=== PATIENT | female | born 1995 | race Caucasian/White ===

== ENCOUNTER 2022-06-12 15:17 | Emergency (ER) | payer BC, SELFPAY ==
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
[2022-06-12 15:29] VITALS: BP 142/81; PULSE 84; RESP 16; TEMP 36.2; O2SAT 99
== END 2022-06-12 15:54 | disposition home or self-care (01) ==
PROVIDERS: Emergency Provider Nurse Practitioner Family; PCP Physician Assistant
DX: K04.7 Periapical abscess without sinus (principal)
CPT/HCPCS: 99203; G0463

== ENCOUNTER 2023-11-10 14:38 | Emergency (ER) | payer BC, SELFPAY ==
[2023-11-10 14:39] VITALS: BP 142/86; PULSE 93; RESP 22; TEMP 36.6; O2SAT 98
[2023-11-10 15:35] LABS: Basophils Absolute Auto 0.04 K/mm3 (0.00-0.10); Basophils Percent Auto 0.4 % (0.0-1.0); Eosinophils Absolute Auto 0.21 K/mm3 (0.02-0.50); Hematocrit 36.1 % (35.0-49.0); Hemoglobin 12.1 g/dL (12.0-15.0); Immature Granulocyte Absolute 0.06 K/mm3 (0.00-0.00); Immature Granulocyte Percent A 0.6 % (0.0-0.0); Lymphocytes Absolute Auto 1.95 K/mm3 (1.10-4.50); Lymphocytes Percent Auto 18.4 % (18.0-42.0); Mean Corpuscular HGB Conc 33.5 g/dL (32-36); Mean Corpuscular Hemoglobin 27.1 pg (27.0-31.0); Mean Corpuscular Volume 80.9 fL (78.0-102.0); Mean Platelet Volume 12.1 fl (9.2-11.8); Monocytes Absolute Auto 0.33 K/mm3 (0.10-0.90); Monocytes Percent Auto 3.1 % (2.0-11.0); Neutrophils Absolute Auto 8.01 K/mm3 (1.70-7.20); Neutrophils Percent Auto 75.5 % (50.0-70.0); Platelet Count Result 139 K/mm3 (150-420); Red Blood Count 4.46 M/mm3 (4.20-5.40); Red Cell Distribution Width 16.7 % (11.6-14.4); White Blood Count 10.6 K/mm3 (4.8-10.8)
[2023-11-10 15:36] LABS: Appearance Urine Clear (Clear); Bilirubin Urine Negative (Negative); Blood Urine 3+ (Negative); Color Urine Yellow (Yellow); Glucose Urine UA Negative (Negative); Ketones Urine Trace (Negative); Leukocyte Esterase Ur Negative LEU/UL (Negative); Nitrate Urine Negative (Negative); Protein Urine Negative (Negative); Specific Grav Ur >= 1.030 (1.010-1.020)
--- NOTE | 2023-11-10 15:39 | PC.NURSE ---
pelvic exam per dr shine with 2 female staff members in room. tolerated well, no blood noted per dr shine
[2023-11-10 15:45] LABS: Add Urine Microscopic? YES; Amorphous Sediment Urine Few; Mucus Urine Heavy /lpf; RBC Urine 0-2 /hpf (0-2); Squamous Epithelial Cell Urine Few /hpf (Few)
[2023-11-10 15:46] LABS: Triple Phosphate Crystal Urine Present /hpf
[2023-11-10 16:05] LABS: Alanine Aminotransferase 13 U/L (14-59); Alkaline Phosphatase 53 U/L (46-116); Anion Gap 10 mmol/L (4-12); Aspartate Amino Transferase < 10 U/L (15-37); Bilirubin,Total 0.2 mg/dL (0.00-1.00); Blood Urea Nitrogen 3 mg/dL (7-18); Carbon Dioxide 21 mmol/L (21-32); Chloride 105 mmol/L (98-108); Estimated CRCL calculation 169 ml/min; Estimated Glomerular Filt Rate > 60; Glucose 87 mg/dL (70-99); Osmolality Calculated 277 mOsm/kg (285-295); Potassium 3.4 mmol/L (3.5-5.1); Sodium 136 mmol/L (136-145); Total Protein 6.5 g/dL (6.4-8.2)
--- NOTE | 2023-11-10 16:10 | ED.FEMALEGU ---
HPI - Female Genitourinary General Chief complaint: Urogenital-Female Stated complaint: vaginal bleeding Time Seen by Provider: 11/10/23 14:59 Source: patient Mode of arrival: ambulatory Limitations: no limitations History of Present Illness HPI Narrative: this is a 28-year-old female presents with episode vaginal bleeding currently there is bleeding no good heart tones and heart tone monitor there is no dysuria no flank pain no fever chills no nausea vomiting no chest pain or shortness of breath. MD elicited complaint: vaginal bleeding Pertinent past history: prior miscarriages Onset (ago): hour(s) Severity: mild Related Data Allergies Allergy/AdvReac Type Severity Reaction Status Date / Time tramadol Allergy Intermediate HIVES Verified 11/19/18 11:40 aspirin Allergy Unknown N/V, Verified 11/19/18 11:40 HIVES, THROAT SWELLING codeine Allergy Unknown Nausea and Verified 11/19/18 11:40 Vomiting ibuprofen Allergy Unknown N/V, Verified 11/19/18 11:40 HIVES, THROAT SWELLING naproxen Allergy Unknown Hives / Verified 11/19/18 11:40 Red Face oxycodone Allergy Unknown Palpitation Verified 11/19/18 11:40 s Penicillins Allergy Unknown Palpitation Verified 11/19/18 11:40 s UNKNOWN ALLERGY Allergy Mild UNKNOWN, Uncoded 11/19/18 11:41 CAN'T REMEMBER NAME OF ALLERGY Review of Systems Review of Systems: All systems reviewed & are unremarkable except as noted in HPI and below PMFSH Past Medical History Medical History Patient denies medical problems Exam Const: General: healthy appearing, no acute distress and alert Limitations: no limitations Neck: Neck: normal visual inspection, no lymphadenopathy and no meningeal signs Chest: Chest palpation & inspection: normal inspection of the chest Resp: Effort & Inspection: normal respiratory effort Auscultation: clear to auscultation bilaterally Cardio: Rate: regular rate Rhythm: regular rhythm GI: GI Palp: Yes Soft to palpation Auscultation: normal bowel sounds : General: Yes bladder normal to palpation Other: vaginal exam shows no blood in the vaginal vault cervical os is closed, currently no evidence of bleeding. Back/Spine/Pelvis: Back: no CVA tenderness Skin: General skin exam: normal color Neuro: General: patient oriented x3 and moves all extremities Course Course Emergency Course: Vaginal exam showed no evidence current bleeding with a closed cervix visualized on speculum exam, currently no bleeding labs reviewed urinalysis shows some 3+ blood otherwise urine is negative for urinary tract infection beta hCG performed and reviewed with patient and CMP within normal limits. Patient has a scheduled appointment with her Ob on Sunday advised to keep that scheduled appointment. According to patient she is 21 weeks and quantitative beta-hCG is at 11,000. Vital Signs Vital signs: Vital Signs Temperature 36.6 C 11/10/23 14:39 Pulse Rate 93 11/10/23 14:39 Respiratory Rate 22 H 11/10/23 14:39 Blood Pressure 142/86 H 11/10/23 14:39 Pulse Oximetry 98 11/10/23 14:39 Oxygen Delivery Room Air 11/10/23 14:39 Temperature 36.6 C 11/10/23 14:39 Pulse Rate 93 11/10/23 14:39 Respiratory Rate 22 H 11/10/23 14:39 Blood Pressure 142/86 H 11/10/23 14:39 Pulse Oximetry 98 11/10/23 14:39 Oxygen Delivery Room Air 11/10/23 14:39 MDM - Female Genitourinary Lab Data 11/10/23 15:22 11/10/23 15:22 Labs: Lab Results 11/10/23 Range/Units 15:22 WBC 10.6 (4.8-10.8) K/mm3 RBC 4.46 (4.20-5.40) M/mm3 Hgb 12.1 (12.0-15.0) g/dL Hct 36.1 (35.0-49.0) % MCV 80.9 (78.0-102.0) fL MCH 27.1 (27.0-31.0) pg MCHC 33.5 (32-36) g/dL RDW 16.7 H (11.6-14.4) % Plt Count 139 L (150-420) K/mm3 MPV 12.1 H (9.2-11.8) fl Immature Gran % (A
[2023-11-10 16:30] VITALS: BP 128/77; PULSE 84; RESP 20; O2SAT 98
== END 2023-11-10 16:30 | disposition home or self-care (01) ==
PROVIDERS: Emergency Provider Emergency Medicine; PCP Physician Assistant
DX: O46.92 Antepartum hemorrhage, unspecified, second trimester (principal); Z3A.21 21 weeks gestation of pregnancy
CPT/HCPCS: 36415; 80053; 81001; 84702; 85025; 99284

== ENCOUNTER 2024-01-19 21:46 | Emergency (ER) | payer BC, SELFPAY ==
[2024-01-19] VITALS (17 sets, daily range): BP systolic 123–148; BP diastolic 64–83; PULSE 82–104; RESP 12–24; TEMP 36.5–36.6; O2SAT 97–100
--- NOTE | 2024-01-19 22:13 | ED.GENADULT ---
HPI - General Adult General Chief complaint: Vaginal Bleeding Stated complaint: hemorrhage Time Seen by Provider: 01/19/24 21:48 Source: patient and family Mode of arrival: wheelchair History of Present Illness HPI narrative: this is a 28 year female that is 29 weeks that has vaginal bleeding patient stable vitals blood pressure 140/83 with rate of 80 with a heart tones 156. Patient denies any cramping there is no nausea vomiting no abdominal pain. The patient was recently released from [facility] in [place], patient signed out earlier this afternoon and was told that if any bleeding should occur that she should go to the nearest emergency department for transfer to [facility]. Patient has a high risk , has a history of 2 subchorionic hemorrhages in her past medical history. Onset (ago): hour(s) Related Data Home Medications Medication Instructions Recorded Confirmed No Home Medications 01/19/24 01/19/24 Allergies Allergy/AdvReac Type Severity Reaction Status Date / Time tramadol Allergy Intermediate HIVES Verified 01/19/24 21:57 aspirin Allergy Unknown N/V, Verified 01/19/24 21:57 HIVES, THROAT SWELLING codeine Allergy Unknown Nausea and Verified 01/19/24 21:57 Vomiting ibuprofen Allergy Unknown N/V, Verified 01/19/24 21:57 HIVES, THROAT SWELLING naproxen Allergy Unknown Hives / Verified 01/19/24 21:57 Red Face oxycodone Allergy Unknown Palpitation Verified 01/19/24 21:57 s Penicillins Allergy Unknown Palpitation Verified 01/19/24 21:57 s UNKNOWN ALLERGY Allergy Mild UNKNOWN, Uncoded 11/19/18 11:41 CAN'T REMEMBER NAME OF ALLERGY Review of Systems Review of Systems: All systems reviewed & are unremarkable except as noted in HPI and below PMFSH Past Medical History Medical History Patient denies medical problems Exam Const: General: no acute distress Nutritional Appearance: well nourished Orientation/consciousness: patient oriented x3 Limitations: no limitations Chest: Chest palpation & inspection: normal inspection of the chest Resp: Effort & Inspection: normal respiratory effort Auscultation: clear to auscultation bilaterally Cardio: Rate: regular rate Rhythm: regular rhythm GI: GI Palp: Yes Soft to palpation Auscultation: normal bowel sounds : General: Yes bladder normal to palpation Other: Vaginal exam does show additional bleeding Course Course Emergency Course: patient currently having vaginal bleeding is 29 weeks spoke with OB at [facility] in [place] that accepted patient for transfer. IV fluids started and blood work currently pending cm will be sending a transport team for this patient. Vital Signs Vital signs: Vital Signs Temperature 36.5 C 01/19/24 21:47 Pulse Rate 89 01/19/24 21:47 Respiratory Rate 18 01/19/24 21:47 Blood Pressure 148/83 H 01/19/24 21:47 Pulse Oximetry 98 01/19/24 21:47 Oxygen Delivery Room Air 01/19/24 21:47 Temperature 36.5 C 01/19/24 21:47 Pulse Rate 89 01/19/24 21:47 Respiratory Rate 18 01/19/24 21:47 Blood Pressure 148/83 H 01/19/24 21:47 Pulse Oximetry 98 01/19/24 21:47 Oxygen Delivery Room Air 01/19/24 21:47 Medical Decision Making Vital Signs Vital Signs: Vital Signs Temperature 36.5 C 01/19/24 21:47 Pulse Rate 89 01/19/24 21:47 Respiratory Rate 18 01/19/24 21:47 Blood Pressure 148/83 H 01/19/24 21:47 Pulse Oximetry 98 01/19/24 21:47 Oxygen Delivery Room Air 01/19/24 21:47 Temperature 36.5 C 01/19/24 21:47 Pulse Rate 89 01/19/24 21:47 Respiratory Rate 18 01/19/24 21:47 Blood Pressure 148/83 H 01/19/24 21:47 Pulse Oximetry 98 01/19/24 21:47 Oxygen Delivery Room Air 01/19/24 21:47 Lab Data 01/19/24 21:48 Labs: Lab Results
[2024-01-19 22:14] LABS: Basophils Absolute Auto 0.03 K/mm3 (0.00-0.10); Basophils Percent Auto 0.2 % (0.0-1.0); Eosinophils Absolute Auto 0.07 K/mm3 (0.02-0.50); Eosinophils Percent Auto 0.5 % (1.0-6.0); Hematocrit 33.2 % (35.0-49.0); Hemoglobin 10.9 g/dL (12.0-15.0); Immature Granulocyte Absolute 0.28 K/mm3 (0.00-0.00); Immature Granulocyte Percent A 1.9 % (0.0-0.0); Lymphocytes Absolute Auto 2.41 K/mm3 (1.10-4.50); Lymphocytes Percent Auto 16.2 % (18.0-42.0); Mean Corpuscular HGB Conc 32.8 g/dL (32-36); Mean Corpuscular Hemoglobin 27.8 pg (27.0-31.0); Mean Corpuscular Volume 84.7 fL (78.0-102.0); Monocytes Absolute Auto 0.67 K/mm3 (0.10-0.90); Monocytes Percent Auto 4.5 % (2.0-11.0); Neutrophils Absolute Auto 11.41 K/mm3 (1.70-7.20); Neutrophils Percent Auto 76.7 % (50.0-70.0); Platelet Count Result 169 K/mm3 (150-420); Red Blood Count 3.92 M/mm3 (4.20-5.40); Red Cell Distribution Width 16.1 % (11.6-14.4); White Blood Count 14.9 K/mm3 (4.8-10.8)
[2024-01-19 22:20] LABS: INR 0.9; Partial Thromboplastin Time 22.5 Sec (23.9-30.70); Prothrombin Time 9.8 Seconds (9.50-12.1)
[2024-01-19] MEDS: SODIUM CHLORIDE 0.9% IV 1,000 ML 999 ML IV CONT (22:56)
--- NOTE | 2024-01-19 22:56 | PC.NURSE ---
Patient on the phone arguing with Grandmother about her mother. Patient is pretty upset at this point in time. Education provided to patient about keeping stress levels down at this time. Encouraged to end call with family to lessen stress.
== END 2024-01-20 00:15 | disposition short-term general hospital (02) ==
PROVIDERS: Emergency Provider Emergency Medicine; PCP Obstetrics & Gynecology
DX: O46.93 Antepartum hemorrhage, unspecified, third trimester (principal); Z3A.29 29 weeks gestation of pregnancy
CPT/HCPCS: 36415; 84702; 85025; 85610; 85730; 96360; 99285; J7030

== ENCOUNTER 2025-03-04 18:39 | Emergency (ER) | payer BC, SELFPAY ==
--- NOTE | ~2025-03-04 | XR_ITS ---
XR chest 1V portable INDICATION:Cough and shortness of breath . REFERENCE: None FINDINGS: A single AP of the chest demonstrates normal heart size. The lungs are clear. There is no evidence of pneumothorax or pleural effusion. IMPRESSION: No acute pulmonary findings. Reviewed, dictated and finalized at location S.
[2025-03-04 18:40] VITALS: BP 142/88; PULSE 89; RESP 16; TEMP 36.6; O2SAT 100
--- OUTSIDE RECORDS SUMMARY | 2025-03-04 18:41 | XMS_ITS | Clinical Summary ---
Author Organization [facility] Address [facility] [place] [address] Care Team Providers Care Pin Sticker Name Role Phone Unavailable Primary Care Provider Unavailabl e Source Comments [facility],non-owned Affiliates and Associated Physician Practices is amultiple site organization consisting of ambulatory clinics and hospital sitesin [place], [place], [place] and [place]. This disclosure is being madepursuant to the Care Everywhere program and may not contain all information available regarding this patient. Last updated 18.[facility] [employer] Allergies Active Allergy Reactions Criticality Noted Date Comments Ibuprofen Urticaria,Palpitations Medium 07/16/2015 Naproxen Other,Palpitations,S hortness of Breath,Swelling High 07/16/2015 Oxycodone Other High 11/27/2023 Penicillins Urticaria,Palpitations Medium 07/16/2015 Tramadol Palpitations 07/16/2015 Medications * Be aware that medications may not be up to date on this document. Alwaysverify current medications with the patient. Vit-Fe Fumarate-FA ( vitamin) 28-0.8 MG tablet Take 1 (one) tablet by mouth once daily Active albuterol HFA (ProAir HFA) 108 (90 Base) MCG/ACT inhaler Inhale 2 (two) puffs by mouth every 4 hours as needed 8.5 g Active Additional Information Patient not taking.Reason: Other (hasn't used in a few years), Informant: Other, Reported on 02/27/2024 Vit-Fe Fumarate-FA (SM Vitamins) 28-0.8 MG TABS Take 1 tablet by mouth once daily 30 tablet 3 4 Active Active Problems Patient Care Coordination No te Formatting of this note migh t be different from the original. [employer] form completed. Diapers given. 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 Overview (11/27/2023): Suppression therapy at 36 weeks Tobacco user 11/27/2023 Overview (11/27/2023): encourage cessation Obesity affecting 11/27/2023 Subchorionic hematoma in second trimester 2023 Asthma, mild intermittent 11/27/2023 Immunizations Immunization Administration Dates Next Due DTP HIB, HISTORIC VACCINE 04/06/1994,01/19/1994 DTP, HISTORIC VACCINE 01/17/1999,1993,10/1993 FLU, HISTORIC VACCINE 03/14/2007 HEP A PEDS 2 DOSE 12/18/2006,01/04/2006 HEP B VACCINE, PED/ADOL 01/19/1994,1993, HIB VACCINE 1993,1993 Human Papilloma Virus Adrián valent Vaccine 12/19/2007,03/14/2007,12/18/2006 INFLUENZA VACCINE 03/01/2010,06/04/2008,04/15/20 03 INFLUENZA VACCINE, TRIV. (FL UZONE; FLULAVAL; FLUARIX; AFLURIA TRIVALENT; 6MO+), 0.5 ML (IIV3) 01/19/2011 MENINGOCOCCAL ACWY (MCV4P) VAC IM 08/04/2010, MMR VACCINE 01/17/1999,04/06/1994 POLIO OPV 01/17/1999, 4,1993,05/12 TDAP (7yrs+) 01/05/2017 TDAP, HISTORIC VACCINE 04/15/2013,05/17/2005 Family History Medical History Relation Name Comments CAD (Coronary Artery Disease) Maternal Grandfather CVA Maternal Grandfather Cancer Maternal Grandfather Hypertension Maternal Grandfather CAD (Coronary Artery Disease) Maternal Grandmother CVA Maternal Grandmother Hypertension Maternal Grandmother CAD (Coronary Artery Disease) Mother CVA Mother Cancer Mother Hypertension Mother CAD (Coronary Artery Disease) Other CVA Other Cancer Other CAD (Coronary Artery Disease) Paternal Grandfather CVA Paternal Grandfather Hypertension Paternal Grandfather CAD (Coronary Artery Disease) Paternal Grandmother CVA Paternal Grandmother Hypertension Paternal Grandmother Relation Name Status Comments Maternal Grandfather Maternal Grandmother Mother Other Paternal Grandfather Paternal Grandmother Social History Tobacco Use Types Packs/Day Years Used Date Smoking Tobacco: Every Day Cigarettes 1 17 Smokeless Tobacco: Never Tobacco Cessation:Ready to Q uit: Not Asked; Counseling Given: Not Answered Alcohol Use Standard Drinks/Week Comments Not Currently 0 (1 standard drink = 0.6 oz pur e alcohol) Overall Financial Resource Strain (CARDIA) Answe r Date Recorded How hard is it for you to pa y for the very basics like food, housing, medical care, and heating? Not hard at all 02/27/2024 [facility] - Occupational Stress Questionnaire Answer Date Recorded Do you feel stress - tense, restless, nervous, or anxious, or unable to sleep at night because your mind is troubled all the time - these days? Not at all 02/27/2024 Hunger Vital Sign Answer Date Recorded Within the past 12 months, y ou worried that your food would run out before you got the money to buy more. Never true 02/27/20 24 Within the past 12 months, t he food you bought just didn't last and you didn't have money to get more. Never true 02/27/2024 PRAPARE - Transportation Answer Date Re corded In the past 12 months, has l ack of transportation kept you from medical appointments or from getting medications? No 02/05 In the past 12 months, has l ack of transportation kept you from meetings, work, or from getting things needed for daily living? No 02/27/2024 Housing Stability Vital Sign Answer Wild e Recorded In the last 12 months, was t here a time when you were not able to pay the mortgage or rent on time? No 01/21/2024 In the last 12 months, how many places have you lived? 2 01/21/2024 In the last 12 months, was t here a time when you did not have a steady place to sleep or slept in a skilled nursing (including now)? No 01/21/2024 [place] Depression Scale Answer Date Recorded [place] Depression Scale Total 0 02/27/2024 The thought of harming myself has occurred to me . Never 02/27/2024 Housing Stability Vital Sign Answer Wild e Recorded In the last 12 months, was t here a time when you were not able to pay the mortgage or rent on time? No 02/27/2024 In the past 12 months, how m any times have you moved where you were living? 1 02/27/2024 At any time in the past 12 m [facility], were you homeless or living in a skilled nursing (including now)? No 02/27/2024 Comments No Sex and Gender Information Value Date Recorded Sex Assigned at Not on file Legal Sex Female 7:49 AM CDT Gender Identity Not on file Sexual Orientation Not on file Last Filed Vital Signs Vital Sign Reading Time Taken Comments Blood Pressure 126/87 03/12/2024 1:51 PM [employer] Pulse 85 03/12/2024 1:51 PM [employer] Temperature 36.5 C (97.7 F) 02/27/2024 11:10 AM CDT Respiratory Rate 16 02/27/2024 11:25 AM CDT Oxygen Saturation 99% 01/22/2024 9:35 AM CDT Inhaled Oxygen Concentration - - Weight 107 kg (235 lb 12.8 oz) 03/12/2024 1:51 P M [employer] Height 175.3 cm (5' 9) 02/27/2024 11:42 AM CDT Body Mass Index 34.82 02/27/2024 11:42 AM CDT Plan of Treatment Health Maintenance Due Date Last Done Comments HEPATITIS C SCREENING 02/21/2011 PNEUMOCOCCAL VACCINE (1 of 2 - PCV) 02/26/2012 PAP SMEAR 2014 DEPRESSION SCREENING 05/07/2024 COVID-19 VACCINE ( - season) 2025 INFLUENZA VACCINE (#1) 2025 1, 03/01/2010, 06/04/2008, Additional history exists DTAP/TDAP/TD VACCINES (8 - Td or Tdap) 01/05/2027 01/05/2017, 04/15/2013, 05/17/2005, Additional history exists ZOSTER VACCINE (1 of 2) 2043 HEPATITIS B VACCINE Completed 01/19/1994, 1993, 1993 HIB VACCINE Completed 04/06/1994, 01/05, 1993, Additional history exists HPV VACCINE Completed 12/19/2007, 12/2006, 12/18/2006 MENINGOCOCCAL GROUPS A/C/Y/W VACCINE Completed 08/04/2010, 12/19/2007 HIV SCREENING Completed 03/31/2024 MENINGOCOCCAL (Group B) VACCINE SHARED DECISION-MAKING Aged Out No longer eligible based on patient's age to complete this topic Insurance MEDICAID - OUT OF STATE Advance Directives * Full Code (Latest Code Status on File) Date Activated Date Inactivated Comments 01/20/2024 11:29 PM 01/22/2024 12:51 PM * Full Code Date Activated Date Inactivated Comments 01/15/2024 12:20 AM 01/19/2024 1:43 PM
--- OUTSIDE RECORDS SUMMARY | 2025-03-04 18:42 | XMS_ITS | Data Portability ---
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 Role Phone SUKH CORDOVA Primary Care Provider Assessment Encounter Date Assessment Date Assessment LastModified by Organization Details LastModified Time 02/26/2024 02/26/2024 OB worksheet [email or web address] Not available 1 09:45:42 Plan of Treatment Reminders Order Date Submit Date Provider Last Modified By Organization Details Last Modified Time Details Appointments ANY 15 2024 10:30A M Sukh Cordova PA-C Not available Not available Not available Lab urinalysi s, dipstick 2023 024 [email or web address] In-Office Order, Internal Use Only DO Not Attach Compendium DO Not Attach Compendium, Do Not Delete/merge, [id number] 03/31/2024 16:58:39 HIV 1 + 2, meaningfu l use set 2023 024 [facility], [address] [place] [address] 2, [place], [address], 04/02/2024 16:14:33 RPR (rapid plasma reagin), serum 2023 024 [facility], [address] [place] [address] 2, [place], [address], 04/02/2024 16:14:31 streptoco ccus group B DNA 2023 024 [facility], [address] [place] [address] 2, [place], [address], 04/02/2024 16:14:30 CT + NG RNA, PCR, unspecifi ed specimen 2023 024 [facility]GEN[facility], [address] [facility] 2, [place], [address], 04/02/2024 16:14:29 urinalysi s, dipstick 2023 024 [email or web address] In-Office Order, Internal Use Only DO Not Attach Compendium DO Not Attach Compendium, Do Not Delete/merge, [id number] 03/18/2024 15:30:34 urinalysi s, dipstick 2023 024 [email or web address] In-Office Order, Internal Use Only DO Not Attach Compendium DO Not Attach Compendium, Do Not Delete/merge, 02/27/2024 09:35:32 urinalysi s, dipstick 2023 024 [email or web address] In-Office Order, Internal Use Only DO Not Attach Compendium DO Not Attach Compendium, Do Not Delete/merge, [id number] 02/12/2024 12:55:44 Referral dermatolo gist referral 2024 025 [facility], [address] [place] [address], [id number], 11/27/2024 12:32:21 Procedures None recorded. Surgeries None recorded. Imaging None recorded. Medication Orders sulfameth oxazole 800 mg-trimet hoprim 160 mg tablet 2024 025 [id number], [address], [place], [id number], 11/16/2024 05:02:22 Patient TargetsNo targets recorded. 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, Encounter Date: 10/30/2024 Results Created Date Observation Date Name Description Value Unit Range Abnormal Flag Note LastModifiedBy Organization Detail LastModifiedTime 01/14/20 24 01/14/2024 Blood type and Indir ect antib vernon scree n panel - Blood ABO and Rh group panel - blood B POSITI VE Not Available Not Available 16:36:25 01/14/20 24 01/14/2024 Blood type and Indir ect antib vernon scree n panel - Blood blood group antibody screen [presence] in serum or plasma NEGATI VE Not Available Not Available 16:36:25 01/14/20 24 01/14/2024 Blood type and Indir ect antib vernon scree n panel - Blood specimen expiration date of blood 2023,2 359 Not Available Not Available 16:36:25 01/14/20 24 01/14/2024 Compr ehens jorge alberto metab olic 1999 panel - Serum or Plasm a sodium [moles/volum e] in serum or plasma 137 text: 136 - 145 mmol/L Not Available Not Available 11/13/2024 16:36:25 01/14/20 24 01/14/2024 Compr ehens jorge alberto metab olic 1999 panel - Serum or Plasm a potassium [moles/volum e] in serum or plasma 3.9 text: 3.5 - 5.1 mmol/L Not Available Not Available 11/13/2024 16:36:25 01/14/20 24 01/14/2024 Compr ehens jorge alberto metab olic 1999 panel - Serum or Plasm a chloride [moles/volum e] in serum or plasma 104 text: 98 - 107 mmol/L Not Available Not Available 11/13/2024 16:36:25 01/14/20 24 01/14/2024 Compr ehens jorge alberto metab olic 1999 panel - Serum or Plasm a carbon dioxide, total [moles/volum e] in serum or plasma 24.2 text: 21.0 - 32.0 mmol/L Not Available Not Available 11/13/2024 16:36:25 01/14/20 24 01/14/2024 Compr ehens jorge alberto metab olic 2000 panel - Serum or Plasm a glucose [mass/volume ] in serum or plasma 95 text: 70 - 99 mg/dL FASTI NG GLUCO SE 100 TO 125 MG/DL IS CONSI STENT WITH IMPAI RED FASTI NG GLUCO SE. FASTI NG GLUCO SE >125 MG/DL IS CONSI STENT WITH DIABE GABBY. RANDO M GLUCO SE >200 MG/DL WITH HYPER GLYCE GAYLE SYMPT OMS IS CONSI STENT WITH DIABE GABBY. PER ADA GUIDE LINES Not Available Not Available 11/13/2024 16:36:25 01/14/2001/14/2024 Compr ehens jorge alberto metab olic 2000 panel - Serum or Plasm a urea nitrogen [mass/volume ] in serum or plasma 4 text: 6 - 24 mg/dL low Not Available Not Available 11/13/2024 16:36:25 01/14/20 24 01/14/2024 Compr ehens jorge alberto metab olic 2000 panel - Serum or Plasm a creatinine [mass/volume ] in serum or plasma 0.65 text: 0.55 - 1.02 mg/dL Not Available Not Available 11/13/2024 16:36:25 01/14/20 24 01/14/2024 Compr ehens jorge alberto metab olic 2000 panel - Serum or Plasm a calcium [mass/volume ] in serum or plasma 8.9 text: 8.4 - 10.5 mg/dL Not Available Not Available 11/13/2024 16:36:25 01/14/20 24 01/14/2024 Compr ehens jorge alberto metab olic 2000 panel - Serum or Plasm a bilirubin.to dora [mass/volume ] in serum or plasma 0.2 text: 0.2 - 1.0 mg/dL THIS ASSAY IS NOT RECOM STACIE D FOR PATIE NTS UNDER GOING TREAT MENT WITH ELTRO MBOPA G DUE TO THE POTEN TIAL FOR FALSE LY ELEVA HALEY RESUL TS. Not Available Not Available 11/13/2024 16:36:25 01/14/20 24 01/14/2024 Compr ehens jorge alberto metab olic 2000 panel - Serum or Plasm a alkaline phosphatase [enzymatic activity/vol ume] in serum or plasma 90 U/L low: 37U/Lh igh: 98U/L Not Available Not Available 11/13/2024 16:36:25 01/14/20 24 01/14/2024 [facility] ehens jorge alberto metab olic 1999 panel - Serum or Plasm a aspartate aminotransfe rase [enzymatic activity/vol ume] in serum or plasma 7 U/L low: 15U/Lh igh: 37U/L low Not Available Not Available 11/13/2024 16:36:25 01/14/20 24 01/14/2024 Compr ehens jorge alberto metab olic 1999 panel - Serum or Plasm a alanine aminotransfe rase [enzymatic activity/vol ume] in serum or plasma 10 U/L low: 14U/Lh igh: 59U/L low Not Available Not Available 11/13/2024 16:36:25 01/14/20 24 01/14/2024 [facility] ehens jorge alberto metab olic 1999 panel - Serum or Plasm a protein [mass/volume ] in serum or plasma 6.9 text: 6.4 - 8.2 g/dL Not Available Not Available 11/13/2024 16:36:25 01/14/20 24 01/14/2024 Compr ehens jorge alberto metab olic 1999 panel - Serum or Plasm a albumin [mass/volume ] in serum or plasma 3 text: 3.4 - 5.0 g/dL low Not Available Not Available 11/13/2024 16:36:25 01/14/20 24 01/14/2024 [facility] ehens jorge alberto metab olic 1999 panel - Serum or Plasm a anion gap in serum or plasma by calculation 8.8 text: 5.0 - 15.0 mmol/L Not Available Not Available 11/13/2024 16:36:25 01/14/20 24 01/14/2024 Compr ehens jorge alberto metab olic 1999 panel - Serum or Plasm a osmolality of serum or plasma by calculated by sum of electrolytes 281 text: mOsm/k g REFER ENCE RANGE NOT ESTAB LISHE D Not Available Not Available 11/13/2024 16:36:25 01/14/20 24 01/14/2024 Compr ehens jorge alberto metab olic 1999 panel - Serum or Plasm a glomerular filtration rate [volume rate/area] in serum, plasma or blood by creatinine-b ased formula (CKD-epi 2020)/1.73 sq M >90 text: >89 mL/min /1.73 M2 Not Available Not Available 11/13/2024 16:36:25 01/14/2001/14/2024 Compr ehens jorge alberto metab olic 2000 panel - Serum or Plasm a GFR notes GFR REFERE NCES: THE ESTIM ATED GFR IS CALCU LATED USING THE 2020 CKD-E PI EQUAT ION. THE FOLLO WING CATEG ORIES FOR GRADI NG RENAL FUNCT ION ARE RECOM STACIE D BY THE [facility] T[facility] OF NEPHR OLOGY (KDIG O 2011 CLINI L[facility]X PRACT ICE GUIDE LINE) . G1,NO RMAL OR HIGH: >89 ml/mi n/1.7 3 m2 G2,PR LDLY DECRE ASED: 60-89 ml/mi n/1.7 3 m2 G3A,M ILDLY TO MODER ATELY DECRE ASED: 45-59 ml/mi n/1.7 3 m2 G3B,M ODERA TELY TO SEVER INOCENTE DECRE ASED: 30-44 ml/mi n/1.7 3 m2 G4,SE VEREL Y DECRE ASED: 15-29 ml/mi n/1.7 3 m2 G5,KI DNEY FAILU RE: <15 ml/mi n/1.7 3 m2 Not Available Not Available 11/13/2024 16:36:25 01/14/20 24 01/14/2024 Compr ehens jorge alberto metab olic 2000 panel - Serum or Plasm a interpretati on and review of laboratory results Abnorm al Not Available Not Available 16:36:25 01/14/2001/14/2024 CBC W Auto Diffe renti al panel - Blood leukocytes [#/volume] in blood by automated count 13.14 text: 4.00 - 10.80 x10'3/ uL high Not Available Not Available 11/13/2024 16:36:25 01/14/20 24 01/14/2024 CBC W Auto Diffe renti al panel - Blood erythrocytes [#/volume] in blood by automated count 4.25 text: 4.10 - 5.40 x10'6/ uL Not Available Not Available 11/13/2024 16:36:25 01/14/20 24 01/14/2024 CBC W Auto Diffe renti al panel - Blood hemoglobin [mass/volume ] in blood 11.8 text: 12.0 - 16.0 g/dL low Not Available Not Available 11/13/2024 16:36:25 01/14/20 24 01/14/2024 CBC W Auto Diffe renti al panel - Blood hematocrit [volume fraction] of blood by calculation 35.4 % low: 36%hig h: 47% low Not Available Not Available 11/13/2024 16:36:25 01/14/2001/14/2024 CBC W Auto Diffe renti al panel - Blood MCV [entitic mean volume] in red blood cells 83.3 text: 78.0 - 100.0 fL Not Available Not Available 11/13/2024 16:36:25 01/14/2001/14/2024 CBC W Auto Diffe renti al panel - Blood MCH [entitic mass] 27.8 pg low: 27pghi gh: 31pg Not Available Not Available 11/13/2024 16:36:25 01/14/2001/14/2024 CBC W Auto Diffe renti al panel - Blood MCHC [entitic mass/volume] in red blood cells 33.3 text: 33.0 - 36.0 g/dL Not Available Not Available 11/13/2024 16:36:25 01/14/2001/14/2024 CBC W Auto Diffe renti al panel - Blood RDW 15.8 % low: 11.5%h igh: 14.5% high Not Available Not Available 11/13/2024 16:36:25 01/14/2001/14/2024 CBC W Auto Diffe renti al panel - Blood platelets [#/volume] in blood 154 text: 150 - 350 x10'3/ uL Not Available Not Available 11/13/2024 16:36:25 01/14/20 24 01/14/2024 CBC W Auto Diffe renti al panel - Blood platelet [entitic mean volume] in blood 12.1 text: 7.4 - 10.4 fL high Not Available Not Available 11/13/2024 16:36:25 01/14/20 24 01/14/2024 CBC W Auto Diffe renti al panel - Blood service comment NORMAL REFERE NCE RANGE NOT ESTABL ISHED FOR THE PROPOR TIONAL LEUKOC YTE DIFFER ENTIAL . Not Available Not Available 16:36:25 01/14/20 24 01/14/2024 CBC W Auto Diffe renti al panel - Blood neutrophils/ leukocytes in blood by automated count 78.9 % Not Available Not Available 11/04 16:36:25 01/14/20 24 01/14/2024 CBC W Auto Diffe renti al panel - Blood lymphocytes/ leukocytes in blood by automated count 15.3 % Not Available Not Available 11/04 16:36:25 01/14/20 24 01/14/2024 CBC W Auto Diffe renti al panel - Blood monocytes/le ukocytes in blood by automated count 3.4 % Not Available Not Available 11/04 16:36:25 01/14/20 24 01/14/2024 CBC W Auto Diffe renti al panel - Blood eosinophils/ leukocytes in blood by automated count 1.5 % Not Available Not Available 11/04 16:36:25 01/14/20 24 01/14/2024 CBC W Auto Diffe renti al panel - Blood basophils/le ukocytes in blood by automated count 0.3 % Not Available Not Available 11/04 16:36:25 01/14/20 24 01/14/2024 CBC W Auto Diffe renti al panel - Blood immature granulocytes /leukocytes in blood by automated count 0.6 % Not Available Not Available 11/04 16:36:25 01/14/20 24 01/14/2024 CBC W Auto Diffe renti al panel - Blood nucleated erythrocytes /leukocytes [ratio] in blood 0 % Not Available Not Available 11/04 16:36:25 01/14/20 24 01/14/2024 CBC W Auto Diffe renti al panel - Blood neutrophils [#/volume] in blood 10.36 text: 1.60 - 8.30 x10'3/ uL high Not Available Not Available 11/13/2024 16:36:25 01/14/20 24 01/14/2024 CBC W Auto Diffe renti al panel - Blood lymphocytes [#/volume] in blood 2.01 text: 0.80 - 4.70 x10'3/ uL Not Available Not Available 11/13/2024 16:36:25 01/14/2001/14/2024 CBC W Auto Diffe renti al panel - Blood monocytes [#/volume] in blood 0.45 text: 0.00 - 1.50 x10'3/ uL Not Available Not Available 11/13/2024 16:36:25 01/14/2001/14/2024 CBC W Auto Diffe renti al panel - Blood eosinophils [#/volume] in blood 0.2 text: 0.00 - 0.40 x10'3/ uL Not Available Not Available 11/13/2024 16:36:25 01/14/2001/14/2024 CBC W Auto Diffe renti al panel - Blood basophils [#/volume] in blood 0.04 text: 0.00 - 0.20 x10'3/ uL Not Available Not Available 11/13/2024 16:36:25 01/14/2001/14/2024 CBC W Auto Diffe renti al panel - Blood immature granulocytes [#/volume] in blood 0.08 text: 0.00 - 0.03 x10'3/ uL high Not Available Not Available 11/13/2024 16:36:25 01/14/2001/14/2024 CBC W Auto Diffe renti al panel - Blood nucleated erythrocytes [#/volume] in blood 0 text: 0.00 - 0.01 x10'3/ uL Not Available Not Available 11/13/2024 16:36:25 01/14/2001/14/2024 CBC W Auto Diffe renti al panel - Blood interpretati on and review of laboratory results Abnorm al Not Available Not Available 16:36:25 01/14/2001/14/2024 Urina lysis compl ete panel - Urine color of urine YELLOW Not Available Not Available 11/04 16:36:24 01/14/20 24 01/14/2024 Urina lysis compl ete panel - Urine clarity of urine CLEAR Not Available Not Available 11/04 16:36:24 01/14/2001/14/2024 Urina lysis compl ete panel - Urine specific gravity of urine 1.03 low: 1high: 1.025 high EQUAL TO OR GREAT ER THAN Not Available Not Available 11/13/2024 16:36:24 01/14/20 24 01/14/2024 Urina lysis compl ete panel - Urine pH of urine 5.5 low: 5high: 8 Not Available Not Available 11/13/2024 16:36:24 01/14/2001/14/2024 Urina lysis compl ete panel - Urine leukocyte esterase [presence] in urine by test strip NEGATI VE text: negati ve Not Available Not Available 11/13/2024 16:36:24 01/14/2001/14/2024 Urina lysis compl ete panel - Urine nitrite [presence] in urine by test strip NEGATI VE text: negati ve Not Available Not Available 11/13/2024 16:36:24 01/14/20 24 01/14/2024 Urina lysis compl ete panel - Urine protein [presence] in urine by automated test strip NEGATI VE text: negati ve Not Available Not Available 11/13/2024 16:36:24 01/14/20 24 01/14/2024 Urina lysis compl ete panel - Urine glucose [presence] in urine by automated test strip NEGATI VE text: negati ve Not Available Not Available 11/13/2024 16:36:24 01/14/20 24 01/14/2024 Urina lysis compl ete panel - Urine ketones [presence] in urine by automated test strip NEGATI VE text: negati ve Not Available Not Available 11/13/2024 16:36:24 01/14/2001/14/2024 Urina lysis compl ete panel - Urine urobilinogen [units/volum e] in urine by test strip 0.2 text: <1.0 eu/dL Not Available Not Available 11/13/2024 16:36:24 01/14/20 24 01/14/2024 Urina lysis compl ete panel - Urine bilirubin.to dora [presence] in urine by automated test strip NEGATI VE text: negati ve Not Available Not Available 11/13/2024 16:36:24 01/14/20 24 01/14/2024 Urina lysis compl ete panel - Urine erythrocytes [#/volume] in urine by automated test strip 3+ text: negati ve abnormal Not Available Not Available 11/13/2024 16:36:24 01/14/20 24 01/14/2024 Urina lysis compl ete panel - Urine leukocytes [#/area] in urine sediment by microscopy high power field 0-5 text: 0 - 5 /hpf Not Available Not Available 11/13/2024 16:36:24 01/14/20 24 01/14/2024 Urina lysis compl ete panel - Urine erythrocytes [#/area] in urine sediment by microscopy high power field 20-50 text: 0 - 5 /hpf abnormal Not Available Not Available 11/13/2024 16:36:24 01/14/2001/14/2024 Urina lysis compl ete panel - Urine epithelial casts [#/area] in urine sediment by microscopy low power field OCCASI ONAL text: /lpf Not Available Not Available 11/13/2024 16:36:24 01/14/20 24 01/14/2024 Urina lysis compl ete panel - Urine bacteria [#/area] in urine sediment by microscopy high power field 2+ text: /hpf Not Available Not Available 11/13/2024 16:36:24 01/14/2001/14/2024 Urina lysis compl ete panel - Urine mucus [presence] in urine sediment by light microscopy PRESEN T Not Available Not Available 16:36:24 01/14/20 24 01/14/2024 Urina lysis compl ete panel - Urine interpretati on and review of laboratory results Abnorm al Not Available Not Available 16:36:24 01/14/20 24 01/14/2024 Drugs ident ified in Urine by Sandra Phan al cannabinoids [presence] in urine by screen method NEGATI VE text: negati ve Not Available Not Available 11/13/2024 16:36:24 01/14/20 24 01/14/2024 Drugs ident ified in Urine by Sandra Phan al phencyclidin e [presence] in urine NEGATI VE text: negati ve Not Available Not Available 11/13/2024 16:36:24 01/14/20 24 01/14/2024 Drugs ident ified in Urine by Scree n metho joseph Nomin al cocaine [presence] in urine by screen method NEGATI VE text: negati ve Not Available Not Available 11/13/2024 16:36:24 01/14/20 24 01/14/2024 Drugs ident ified in Urine by Scree n metho d Nomin al methamphetam ine [presence] in urine NEGATI VE text: negati ve Not Available Not Available 11/13/2024 16:36:24 01/14/20 24 01/14/2024 Drugs ident ified in Urine by Scree n metho d Nomin al opiates [presence] in urine NEGATI VE text: negati ve Not Available Not Available 11/13/2024 16:36:24 01/14/20 24 01/14/2024 Drugs ident ified in Urine by Scree n metho d Nomin al amphetamine [presence] in urine by screen method NEGATI VE text: negati ve Not Available Not Available 11/13/2024 16:36:24 01/14/20 24 01/14/2024 Drugs ident ified in Urine by Scree n metho joseph Nomin al benzodiazepi maureen [presence] in urine by screen method NEGATI VE text: negati ve Not Available Not Available 11/13/2024 16:36:24 01/14/20 24 01/14/2024 Drugs ident ified in Urine by Scree n metho joseph Nomin al tricyclic antidepressa nts [presence] in urine NEGATI VE text: negati ve Not Available Not Available 11/13/2024 16:36:24 01/14/20 24 01/14/2024 Drugs ident ified in Urine by Scree n metho joseph Nomin al methadone [presence] in urine NEGATI VE text: negati ve Not Available Not Available 11/13/2024 16:36:24 01/14/20 24 01/14/2024 Drugs ident ified in Urine by Scree n metho joseph Nomin al barbiturate screen present [identifier] in urine NEGATI VE text: negati ve Not Available Not Available 11/13/2024 16:36:24 09/09/01/14/2024 Drugs ident ified in Urine by Sandra ruiz Nomin nika oxycodone [presence] in urine NEGATI VE text: negati ve Not Available Not Available 11/13/2024 16:36:24 01/14/20 24 01/14/2024 Drugs ident ified in Urine by Sandra ruiz Nomin nika service comment THIS TEST METHOD OLOGY IS DESIGN ED AND OFFERE D A RAPID TURNAR OUND, QUALIT ATIVE SCREEN ING PROCED URE TO AID IN THE IMMEDI ATE MEDICA L ASSESS MENT OF PATIEN TS SUSPEC HALEY OF SUBSTA NCE ABUSE. CLINI LENNOX CONSI DERAT ION AND PROFE SSION AL JUDGM ENT MUST BE APPLI ED TO ANY DRUG OF ABUSE TEST RESUL T, BOTH POSIT JORGE ALBERTO AND NEGAT JORGE ALBERTO. CONFI RMATO RY QUANT ITATI VE RESUL TS ARE AVAIL ABLE THROU GH OUR [facility] . Not Available Not Available 11/13/2024 16:36:24 01/15/20 24 01/15/2024 SLIDE SCAN HEMAT OLOGY erythrocyte [morphology] in blood REVIEW ED Not Available Not Available 16:37:09 01/15/20 24 01/15/2024 SLIDE SCAN HEMAT OLOGY yoselin cells [presence] in blood by light microscopy MODERA TE text: (none) abnormal Not Available Not Available 11/13/2024 16:37:09 01/15/20 24 01/15/2024 SLIDE SCAN HEMAT OLOGY interpretati on and review of laboratory results Abnorm al Not Available Not Available 16:37:09 01/15/20 24 01/15/2024 PT and aPTT and Fibri nogen panel - Plate let poor plasm a by Coagu latio n assay prothrombin time (PT) 13 text: 12.1 - 14.8 sec Not Available Not Available 11/13/2024 16:37:09 01/15/20 24 01/15/2024 PT and aPTT and Fibri nogen panel - Plate let poor plasm a by Coagu latio n assay INR in platelet poor plasma by coagulation assay 1 low: 0.9hig h: 1.1 Not Available Not Available 11/13/2024 16:37:09 01/15/20 24 01/15/2024 PT and aPTT and Fibri nogen panel - Plate let poor plasm a by Coagu latio n assay APTT in platelet poor plasma by coagulation assay 24.6 text: 23.0 - 38.4 sec Not Available Not Available 11/13/2024 16:37:01/15/20 24 01/15/2024 PT and aPTT and Fibri nogen panel - Plate let poor plasm a by Coagu latio n assay fibrinogen [mass/volume ] in platelet poor plasma by coagulation assay 417 mg/dL low: 200mg/ dLhigh : 400mg/ dL high Not Available Not Available 11/13/2024 16:37:01/15/20 24 01/15/2024 PT and aPTT and Fibri nogen panel - Plate let poor plasm a by Coagu latio n assay fibrin D-dimer feu [mass/volume ] in platelet poor plasma 1.02 text: 0.27 - 0.50 ug/mL feu high Not Available Not Available 11/13/2024 16:37:01/15/20 24 01/15/2024 PT and aPTT and Fibri nogen panel - Plate let poor plasm a by Coagu latio n assay platelets [#/volume] in blood by automated count 162 text: 150 - 420 x10e9/ L Not Available Not Available 11/13/2024 16:37:01/15/20 24 01/15/2024 PT and aPTT and Fibri nogen panel - Plate let poor plasm a by Coagu latio n assay Unknown Analyte Conven tional Warfar in Antico agulan t Therap y INR Refere nce Range: 2.0-3. 0 Intens jorge alberto Warfar in Antico agulan t Therap y INR Refere nce Range: 2.5-3. 5 Hepari n Therap eutic Range for PTT: 69.0 - 110.0 second s. In the absenc e of clinic al sympto ms, a value less than or equal to 0.5 mcg/mL FEU signif icantl y decrea ses the probab ility of PE/DVT (negat jorge alberto predic tive value >95%). 1 mcg/ml FEU = 1 Fibrin ogen Equiva lent Unit (appro ximate s 0.5 mcg/mL of D-dime r). ISTH DIAGNO STIC SCORIN G SYSTEM FOR DIC ------ ------ ------ ------ ------ ------ ------ ------ ------ ------ ------ ------ ------ ------ Score 0 1 2 3 ____ _ ____ _ __ _ Platel et Count (x10^3 /uL) > 100 <100 < 50 N/A ____ _ ____ _ __ ___ ___ __ PT Prolon gation above Upper limit of normal 0-3 3-6 > 6 N/A Range (secon ds) ____ _ ____ _ __ ___ ___ __ Fibrin ogen (mg/dL ) >100 < 100 N/A N/A ____ _ ____ _ __ ___ ___ __ D-Deyanirae r (mcg/m L FEU) < 0.50 N/A 0.50-5 .0 > 5 ____ _ ____ _ __ ___ ___ __ Calcul ate Cumula tive Score: > or = 5: compat ible with overt DIC < 5: sugges tive for non-ov ert DIC N/A = Non applic able Refere nce: Br. J. Haemat ol. 145:24 -33,20 09. Not Available Not Available 16:37:01/15/2001/15/2024 PT and aPTT and Fibri nogen panel - Plate let poor plasm a by Deng rogers n assay interpretati on and review of laboratory results Abnorm al Not Available Not Available 16:37:01/15/20 24 01/15/2024 CBC W Auto Diffe renti al panel - Blood leukocytes [#/volume] in blood by automated count 13 text: 4.0 - 10.7 x10e9/ L high Not Available Not Available 11/13/2024 16:37:01/15/20 24 01/15/2024 CBC W Auto Diffe renti al panel - Blood erythrocytes [#/volume] in blood by automated count 4.21 text: 3.90 - 5.20 x10e12 /L Not Available Not Available 11/13/2024 16:37:09 01/15/20 24 01/15/2024 CBC W Auto Diffe renti al panel - Blood hemoglobin [mass/volume ] in blood 11.4 g/dL low: 11.9g/ dLhigh : 15.8g/ dL low Not Available Not Available 11/13/2024 16:37:01/15/20 24 01/15/2024 CBC W Auto Diffe renti al panel - Blood hematocrit [volume fraction] of blood by automated count 36.5 % low: 34.8%h igh: 46.1% Not Available Not Available 11/13/2024 16:37:01/15/20 24 01/15/2024 CBC W Auto Diffe renti al panel - Blood MCV [entitic mean volume] in red blood cells by automated count 86.7 fL low: 80fLhi gh: 98fL Not Available Not Available 11/13/2024 16:37:09 01/15/20 24 01/15/2024 CBC W Auto Diffe renti al panel - Blood MCH [entitic mass] by automated count 27.1 pg low: 26.7pg high: 33.6pg Not Available Not Available 11/13/2024 16:37:09 01/15/20 24 01/15/2024 CBC W Auto Diffe renti al panel - Blood MCHC [entitic mass/volume] in red blood cells by automated count 31.2 g/dL low: 31.7g/ dLhigh : 36.3g/ dL low Not Available Not Available 11/13/2024 16:37:09 01/15/20 24 01/15/2024 CBC W Auto Diffe renti al panel - Blood erythrocyte [distwidth] in red blood cells by automated count 15.9 % low: 11.3%h igh: 14.8% high Not Available Not Available 11/13/2024 16:37:09 01/15/20 24 01/15/2024 CBC W Auto Diffe renti al panel - Blood platelets [#/volume] in blood by automated count 134 text: 150 - 420 x10e9/ L low Not Available Not Available 11/13/2024 16:37:09 01/15/20 24 01/15/2024 CBC W Auto Diffe renti al panel - Blood platelet [entitic mean volume] in blood by automated count 13 fL low: 7.8fLh igh: 11.4fL high Not Available Not Available 11/13/2024 16:37:09 01/15/20 24 01/15/2024 CBC W Auto Diffe renti al panel - Blood neutrophils/ leukocytes in blood by automated count 92.2 % low: 41%hig h: 74% high Not Available Not Available 11/13/2024 16:37:09 01/15/20 24 01/15/2024 CBC W Auto Diffe renti al panel - Blood lymphocytes/ leukocytes in blood by automated count 5.6 % low: 17%hig h: 47% low Not Available Not Available 11/13/2024 16:37:09 01/15/20 24 01/15/2024 CBC W Auto Diffe renti al panel - Blood monocytes/le ukocytes in blood by automated count 1 % low: 3%high : 11% low Not Available Not Available 11/13/2024 16:37:09 01/15/20 24 01/15/2024 CBC W Auto Diffe renti al panel - Blood eosinophils/ leukocytes in blood by automated count 0.1 % low: 0%high : 7% Not Available Not Available 11/13/2024 16:37:09 01/15/20 24 01/15/2024 CBC W Auto Diffe renti al panel - Blood basophils/le ukocytes in blood by automated count 0.2 % low: 0%high : 1.6% Not Available Not Available 11/13/2024 16:37:09 01/15/20 24 01/15/2024 CBC W Auto Diffe renti al panel - Blood immature granulocytes /leukocytes in blood by automated count 0.9 % low: 0%high : 1% Not Available Not Available 11/13/2024 16:37:09 01/15/20 24 01/15/2024 CBC W Auto Diffe renti al panel - Blood neutrophils [#/volume] in blood by automated count 11.99 text: 1.60 - 7.50 x10e9/ L high Not Available Not Available 11/13/2024 16:37:09 01/15/20 24 01/15/2024 CBC W Auto Diffe renti al panel - Blood lymphocytes [#/volume] in blood by automated count 0.73 text: 1.00 - 4.40 x10e9/ L low Not Available Not Available 11/13/2024 16:37:09 01/15/20 24 01/15/2024 CBC W Auto Diffe renti al panel - Blood monocytes [#/volume] in blood by automated count 0.13 text: 0.15 - 1.00 x10e9/ L low Not Available Not Available 11/13/2024 16:37:09 01/15/20 24 01/15/2024 CBC W Auto Diffe renti al panel - Blood eosinophils [#/volume] in blood 0.01 text: 0.00 - 0.60 x10e9/ L Not Available Not Available 11/13/2024 16:37:09 01/15/20 24 01/15/2024 CBC W Auto Diffe renti al panel - Blood basophils [#/volume] in blood by automated count 0.03 text: 0.00 - 0.13 x10e9/ L Not Available Not Available 11/13/2024 16:37:09 01/15/20 24 01/15/2024 CBC W Auto Diffe jean-paul al panel - Blood interpretati on and review of laboratory results Abnorm al Not Available Not Available 16:37:09 01/15/20 24 01/15/2024 Gluco se [Mass /volu me] in Serum or Plasm a glucose [mass/volume ] in serum or plasma --1st specimen post xxx challenge 120 mg/dL low: 64mg/d Lhigh: 140mg/ dL Not Available Not Available 10/30/2024 05:18:45 01/15/20 24 01/15/2024 Gluco se [Mass /volu me] in Serum or Plasm a length of time post dose Not Available Not Available 10/06 05:18:45 01/15/20 24 01/15/2024 ABO and Rh group [Type ] in Blood ABO and Rh group [type] in blood B POS Not Available Not Available 02/2025 16:37:09 01/15/20 24 01/15/2024 Trich omona s vagin dania Ag [Pres ence] in Genit al speci men by Immun oassa y trichomonas vaginalis Ag [presence] in genital specimen by immunoassay Negati ve text: negati ve Not Available Not Available 11/13/2024 16:37:09 01/15/20 24 01/15/2024 Trich omona s vagin dania Ag [Pres ence] in Genit al speci men by Immun oassa y interpretati on and review of laboratory results Normal Not Available Not Available 11/04 16:37:09 01/15/20 24 01/15/2024 Chlam ydia trach omati s+Nei sseri a gonor rhoea e rRNA [Pres ence] in Speci men by Probe chlamydia trachomatis rrna [presence] in specimen by GERRI with probe detection Negati ve text: negati ve Not Available Not Available 11/13/2024 16:37:09 01/15/20 24 01/15/2024 Chlam ydia trach omati s+Nei sseri a gonor rhoea e rRNA [Pres ence] in Speci men by Probe neisseria gonorrhoeae rrna [presence] in specimen by GERRI with probe detection Negati ve text: negati ve Not Available Not Available 11/13/2024 16:37:09 01/15/20 24 01/15/2024 Chlam ydia trach omati s+Nei sseri a gonor rhoea e rRNA [Pres ence] in Speci men by Probe Unknown Analyte Result s based on detect ion/no detect ion of riboso mal RNA by amplif ied method . Not Available Not Available 16:37:09 01/15/20 24 01/15/2024 Chlam ydia trach omati s+Nei sseri a gonor rhoea e rRNA [Pres ence] in Speci men by Probe interpretati on and review of laboratory results Normal Not Available Not Available 11/04 16:37:09 01/15/20 24 01/18/2024 Strep tococ cus agala ctiae [Pres ence] in Speci men by Organ ism speci fic cultu re microorganis m identified in specimen by culture Negati ve for beta-h emolyt ic Strept ococcu s Group B Not Available Not Available 05:18:45 01/15/20 24 01/18/2024 Strep tococ cus agala ctiae [Pres ence] in Speci men by Organ ism speci fic cultu re interpretati on and review of laboratory results Normal Not Available Not Available 10/06 05:18:45 01/15/20 24 01/15/2024 PT and aPTT and Fibri nogen panel - Plate let poor plasm a by Coagu latio n assay prothrombin time (PT) 13.2 text: 12.1 - 14.8 sec Not Available Not Available 11/13/2024 16:37:09 01/15/20 24 01/15/2024 PT and aPTT and Fibri nogen panel - Plate let poor plasm a by Coagu latio n assay INR in platelet poor plasma by coagulation assay 1 low: 0.9hig h: 1.1 Not Available Not Available 11/13/2024 16:37:09 01/15/20 24 01/15/2024 PT and aPTT and Fibri nogen panel - Plate let poor plasm a by [employer]agu latio n assay APTT in platelet poor plasma by coagulation assay 23.7 text: 23.0 - 38.4 sec Not Available Not Available 11/13/2024 16:37:01/15/20 24 01/15/2024 PT and aPTT and Fibri nogen panel - Plate let poor plasm a by Coagu latio n assay fibrinogen [mass/volume ] in platelet poor plasma by coagulation assay 366 mg/dL low: 200mg/ dLhigh : 400mg/ dL Not Available Not Available 11/13/2024 16:37:01/15/20 24 01/15/2024 PT and aPTT and Fibri nogen panel - Plate let poor plasm a by Coagu latio n assay fibrin D-dimer feu [mass/volume ] in platelet poor plasma 1.14 text: 0.27 - 0.50 ug/mL feu high Not Available Not Available 11/13/2024 16:37:01/15/20 24 01/15/2024 PT and aPTT and Fibri nogen panel - Plate let poor plasm a by Coagu latio n assay platelets [#/volume] in blood by automated count 143 text: 150 - 420 x10e9/ L low Not Available Not Available 11/13/2024 16:37:01/15/20 24 01/15/2024 PT and aPTT and Fibri nogen panel - Plate let poor plasm a by Coagu latio n assay Unknown Analyte Conven tional Warfar in Antico agulan t Therap y INR Refere nce Range: 2.0-3. 0 Intens jorge alberto Warfar in Antico agulan t Therap y INR Refere nce Range: 2.5-3. 5 Hepari n Therap eutic Range for PTT: 69.0 - 110.0 second s. In the absenc e of clinic al sympto ms, a value less than or equal to 0.5 mcg/mL FEU signif icantl y decrea ses the probab ility of PE/DVT (negat jorge alberto predic tive value >95%). 1 mcg/ml FEU = 1 Fibrin ogen Equiva lent Unit (appro ximate s 0.5 mcg/mL of D-dime r). ISTH DIAGNO STIC SCORIN G SYSTEM FOR DIC ------ ------ ------ ------ ------ ------ ------ ------ ------ ------ ------ ------ ------ ------ Score 0 1 2 3 ____ _ ____ _ __ _ Platel et Count (x10^3 /uL) > 100 <100 < 50 N/A ____ _ ____ _ __ ___ ___ __ PT Prolon gation above Upper limit of normal 0-3 3-6 > 6 N/A Range (secon ds) ____ _ ____ _ __ ___ ___ __ Fibrin ogen (mg/dL ) >100 < 100 N/A N/A ____ _ ____ _ __ ___ ___ __ D-Dime r (mcg/m L FEU) < 0.50 N/A 0.50-5 .0 > 5 ____ _ ____ _ __ ___ ___ __ Calcul ate Cumula tive Score: > or = 5: compat ible with overt DIC < 5: sugges tive for non-ov ert DIC N/A = Non applic able Refere nce: Br. J. Haemat ol. 145:24 -33,20 09. Not Available Not Available 16:37:01/15/2001/15/2024 PT and aPTT and Fibri nogen panel - Plate let poor plasm a by Deng rogers n assay interpretati on and review of laboratory results Abnorm al Not Available Not Available 16:37:01/15/2001/15/2024 CBC W Auto Diffe renti al panel - Blood leukocytes [#/volume] in blood by automated count 13.4 text: 4.0 - 10.7 x10e9/ L high Not Available Not Available 11/13/2024 16:37:01/15/20 24 01/15/2024 CBC W Auto Diffe renti al panel - Blood erythrocytes [#/volume] in blood by automated count 4.04 text: 3.90 - 5.20 x10e12 /L Not Available Not Available 11/13/2024 16:37:01/15/20 24 01/15/2024 CBC W Auto Diffe renti al panel - Blood hemoglobin [mass/volume ] in blood 10.9 g/dL low: 11.9g/ dLhigh : 15.8g/ dL low Not Available Not Available 11/13/2024 16:37:01/15/20 24 01/15/2024 CBC W Auto Diffe renti al panel - Blood hematocrit [volume fraction] of blood by automated count 33.9 % low: 34.8%h igh: 46.1% low Not Available Not Available 11/13/2024 16:37:01/15/20 24 01/15/2024 CBC W Auto Diffe renti al panel - Blood MCV [entitic mean volume] in red blood cells by automated count 83.9 fL low: 80fLhi gh: 98fL Not Available Not Available 11/13/2024 16:37:01/15/20 24 01/15/2024 CBC W Auto Diffe renti al panel - Blood MCH [entitic mass] by automated count 27 pg low: 26.7pg high: 33.6pg Not Available Not Available 11/13/2024 16:37:09 01/15/20 24 01/15/2024 CBC W Auto Diffe renti al panel - Blood MCHC [entitic mass/volume] in red blood cells by automated count 32.2 g/dL low: 31.7g/ dLhigh : 36.3g/ dL Not Available Not Available 11/13/2024 16:37:09 01/15/20 24 01/15/2024 CBC W Auto Diffe renti al panel - Blood erythrocyte [distwidth] in red blood cells by automated count 15.6 % low: 11.3%h igh: 14.8% high Not Available Not Available 11/13/2024 16:37:09 01/15/20 24 01/15/2024 CBC W Auto Diffe renti al panel - Blood platelets [#/volume] in blood by automated count 156 text: 150 - 420 x10e9/ L Not Available Not Available 11/13/2024 16:37:09 01/15/20 24 01/15/2024 CBC W Auto Diffe renti al panel - Blood platelet [entitic mean volume] in blood by automated count 12.7 fL low: 7.8fLh igh: 11.4fL high Not Available Not Available 11/13/2024 16:37:01/15/20 24 01/15/2024 CBC W Auto Diffe renti al panel - Blood neutrophils/ leukocytes in blood by automated count 73.3 % low: 41%hig h: 74% Not Available Not Available 11/13/2024 16:37:09 01/15/20 24 01/15/2024 CBC W Auto Diffe renti al panel - Blood lymphocytes/ leukocytes in blood by automated count 20.9 % low: 17%hig h: 47% Not Available Not Available 11/13/2024 16:37:09 01/15/20 24 01/15/2024 CBC W Auto Diffe renti al panel - Blood monocytes/le ukocytes in blood by automated count 3.7 % low: 3%high : 11% Not Available Not Available 11/13/2024 16:37:09 01/15/20 24 01/15/2024 CBC W Auto Diffe renti al panel - Blood eosinophils/ leukocytes in blood by automated count 1.2 % low: 0%high : 7% Not Available Not Available 11/13/2024 16:37:09 01/15/20 24 01/15/2024 CBC W Auto Diffe renti al panel - Blood basophils/le ukocytes in blood by automated count 0.4 % low: 0%high : 1.6% Not Available Not Available 11/13/2024 16:37:09 01/15/20 24 01/15/2024 CBC W Auto Diffe renti al panel - Blood immature granulocytes /leukocytes in blood by automated count 0.5 % low: 0%high : 1% Not Available Not Available 11/13/2024 16:37:09 01/15/20 24 01/15/2024 CBC W Auto Diffe renti al panel - Blood neutrophils [#/volume] in blood by automated count 9.82 text: 1.60 - 7.50 x10e9/ L high Not Available Not Available 11/13/2024 16:37:09 01/15/20 24 01/15/2024 CBC W Auto Diffe renti al panel - Blood lymphocytes [#/volume] in blood by automated count 2.8 text: 1.00 - 4.40 x10e9/ L Not Available Not Available 11/13/2024 16:37:09 01/15/20 24 01/15/2024 CBC W Auto Diffe renti al panel - Blood monocytes [#/volume] in blood by automated count 0.5 text: 0.15 - 1.00 x10e9/ L Not Available Not Available 11/13/2024 16:37:09 01/15/20 24 01/15/2024 CBC W Auto Diffe renti al panel - Blood eosinophils [#/volume] in blood 0.16 text: 0.00 - 0.60 x10e9/ L Not Available Not Available 11/13/2024 16:37:09 01/15/20 24 01/15/2024 CBC W Auto Diffe renti al panel - Blood basophils [#/volume] in blood by automated count 0.05 text: 0.00 - 0.13 x10e9/ L Not Available Not Available 11/13/2024 16:37:01/15/20 24 01/15/2024 CBC W Auto Diffe renti al panel - Blood interpretati on and review of laboratory results Abnorm al Not Available Not Available 16:37:01/15/20 24 01/15/2024 Blood type and Indir ect antib vernon scree n panel - Blood ABO and Rh group [type] in blood B POS No histo ry; colle ct retyp e. Not Available Not Available 11/13/2024 16:37:01/15/20 24 01/15/2024 Blood type and Indir ect antib vernon scree n panel - Blood blood group antibody screen [presence] in serum or plasma NEG Not Available Not Available 11/04 16:37:01/16/20 24 01/16/2024 PT and aPTT and Fibri nogen panel - Plate let poor plasm a by Coagu latio n assay prothrombin time (PT) 13.1 text: 12.1 - 14.8 sec Not Available Not Available 11/13/2024 16:37:09 01/16/20 24 01/16/2024 PT and aPTT and Fibri nogen panel - Plate let poor plasm a by Coagu latio n assay INR in platelet poor plasma by coagulation assay 1 low: 0.9hig h: 1.1 Not Available Not Available 11/13/2024 16:37:01/16/20 24 01/16/2024 PT and aPTT and Fibri nogen panel - Plate let poor plasm a by Coagu latio n assay APTT in platelet poor plasma by coagulation assay 24.5 text: 23.0 - 38.4 sec Not Available Not Available 11/13/2024 16:37:01/16/20 24 01/16/2024 PT and aPTT and Fibri nogen panel - Plate let poor plasm a by Coagu latio n assay fibrinogen [mass/volume ] in platelet poor plasma by coagulation assay 396 mg/dL low: 200mg/ dLhigh : 400mg/ dL Not Available Not Available 11/13/2024 16:37:01/16/20 24 01/16/2024 PT and aPTT and Fibri nogen panel - Plate let poor plasm a by Coagu latio n assay fibrin D-dimer feu [mass/volume ] in platelet poor plasma 0.78 text: 0.27 - 0.50 ug/mL feu high Not Available Not Available 11/13/2024 16:37:01/16/20 24 01/16/2024 PT and aPTT and Fibri nogen panel - Plate let poor plasm a by Coagu latio n assay platelets [#/volume] in blood by automated count 158 text: 150 - 420 x10e9/ L Not Available Not Available 11/13/2024 16:37:01/16/20 24 01/16/2024 PT and aPTT and Fibri nogen panel - Plate let poor plasm a by Coagu latio n assay Unknown Analyte Conven tional Warfar in Antico agulan t Therap y INR Refere nce Range: 2.0-3. 0 Intens jorge alberto Warfar in Antico agulan t Therap y INR Refere nce Range: 2.5-3. 5 Hepari n Therap eutic Range for PTT: 69.0 - 110.0 second s. In the absenc e of clinic al sympto ms, a value less than or equal to 0.5 mcg/mL FEU signif icantl y decrea ses the probab ility of PE/DVT (negat jorge alberto predic tive value >95%). 1 mcg/ml FEU = 1 Fibrin ogen Equiva lent Unit (appro ximate s 0.5 mcg/mL of D-dime r). ISTH DIAGNO STIC SCORIN G SYSTEM FOR DIC ------ ------ ------ ------ ------ ------ ------ ------ ------ ------ ------ ------ ------ ------ Score 0 1 2 3 ____ _ ____ _ __ _ Platel et Count (x10^3 /uL) > 100 <100 < 50 N/A ____ _ ____ _ __ ___ ___ __ PT Prolon gation above Upper limit of normal 0-3 3-6 > 6 N/A Range (secon ds) ____ _ ____ _ __ ___ ___ __ Fibrin ogen (mg/dL ) >100 < 100 N/A N/A ____ _ ____ _ __ ___ ___ __ D-Dime r (mcg/m L FEU) < 0.50 N/A 0.50-5 .0 > 5 ____ _ ____ _ __ ___ ___ __ Calcul ate Cumula tive Score: > or = 5: compat ible with overt DIC < 5: sugges tive for non-ov ert DIC N/A = Non applic able Refere nce: Br. JMil Haemat ol. 145:24 -33,24 01. Not Available Not Available 16:37:09 01/16/20 24 01/16/2024 PT and aPTT and Fibri nogen panel - Plate let poor plasm a by Coagu latio n assay interpretati on and review of laboratory results Abnorm al Not Available Not Available 16:37:09 01/16/20 24 01/16/2024 CBC W Auto Diffe renti al panel - Blood leukocytes [#/volume] in blood by automated count 18.5 text: 4.0 - 10.7 x10e9/ L high Not Available Not Available 11/13/2024 16:37:09 01/16/20 24 01/16/2024 CBC W Auto Diffe renti al panel - Blood erythrocytes [#/volume] in blood by automated count 3.98 text: 3.90 - 5.20 x10e12 /L Not Available Not Available 11/13/2024 16:37:09 01/16/20 24 01/16/2024 CBC W Auto Diffe renti al panel - Blood hemoglobin [mass/volume ] in blood 10.7 g/dL low: 11.9g/ dLhigh : 15.8g/ dL low Not Available Not Available 11/13/2024 16:37:01/16/20 24 01/16/2024 CBC W Auto Diffe renti al panel - Blood hematocrit [volume fraction] of blood by automated count 34 % low: 34.8%h igh: 46.1% low Not Available Not Available 11/13/2024 16:37:01/16/20 24 01/16/2024 CBC W Auto Diffe renti al panel - Blood MCV [entitic mean volume] in red blood cells by automated count 85.4 fL low: 80fLhi gh: 98fL Not Available Not Available 11/13/2024 16:37:01/16/20 24 01/16/2024 CBC W Auto Diffe renti al panel - Blood MCH [entitic mass] by automated count 26.9 pg low: 26.7pg high: 33.6pg Not Available Not Available 11/13/2024 16:37:01/16/20 24 01/16/2024 CBC W Auto Diffe renti al panel - Blood MCHC [entitic mass/volume] in red blood cells by automated count 31.5 g/dL low: 31.7g/ dLhigh : 36.3g/ dL low Not Available Not Available 11/13/2024 16:37:01/16/20 24 01/16/2024 CBC W Auto Diffe renti al panel - Blood erythrocyte [distwidth] in red blood cells by automated count 15.8 % low: 11.3%h igh: 14.8% high Not Available Not Available 11/13/2024 16:37:09 01/16/20 24 01/16/2024 CBC W Auto Diffe renti al panel - Blood platelets [#/volume] in blood by automated count 153 text: 150 - 420 x10e9/ L Not Available Not Available 11/13/2024 16:37:09 01/16/20 24 01/16/2024 CBC W Auto Diffe renti al panel - Blood platelet [entitic mean volume] in blood by automated count 12.5 fL low: 7.8fLh igh: 11.4fL high Not Available Not Available 11/13/2024 16:37:09 01/16/20 24 01/16/2024 CBC W Auto Diffe renti al panel - Blood neutrophils/ leukocytes in blood by automated count 88.7 % low: 41%hig h: 74% high Not Available Not Available 11/13/2024 16:37:09 01/16/20 24 01/16/2024 CBC W Auto Diffe renti al panel - Blood lymphocytes/ leukocytes in blood by automated count 7.3 % low: 17%hig h: 47% low Not Available Not Available 11/13/2024 16:37:09 01/16/20 24 01/16/2024 CBC W Auto Diffe renti al panel - Blood monocytes/le ukocytes in blood by automated count 3.3 % low: 3%high : 11% Not Available Not Available 11/13/2024 16:37:09 01/16/20 24 01/16/2024 CBC W Auto Diffe renti al panel - Blood eosinophils/ leukocytes in blood by automated count 0 % low: 0%high : 7% Not Available Not Available 11/13/2024 16:37:09 01/16/20 24 01/16/2024 CBC W Auto Diffe renti al panel - Blood basophils/le ukocytes in blood by automated count 0.1 % low: 0%high : 1.6% Not Available Not Available 11/13/2024 16:37:09 01/16/20 24 01/16/2024 CBC W Auto Diffe renti al panel - Blood immature granulocytes /leukocytes in blood by automated count 0.6 % low: 0%high : 1% Not Available Not Available 11/13/2024 16:37:09 01/16/20 24 01/16/2024 CBC W Auto Diffe renti al panel - Blood neutrophils [#/volume] in blood by automated count 16.42 text: 1.60 - 7.50 x10e9/ L high Not Available Not Available 11/13/2024 16:37:09 01/16/20 24 01/16/2024 CBC W Auto Diffe renti al panel - Blood lymphocytes [#/volume] in blood by automated count 1.36 text: 1.00 - 4.40 x10e9/ L Not Available Not Available 11/13/2024 16:37:09 01/16/20 24 01/16/2024 CBC W Auto Diffe renti al panel - Blood monocytes [#/volume] in blood by automated count 0.62 text: 0.15 - 1.00 x10e9/ L Not Available Not Available 11/13/2024 16:37:09 01/16/20 24 01/16/2024 CBC W Auto Diffe renti al panel - Blood eosinophils [#/volume] in blood 0 text: 0.00 - 0.60 x10e9/ L Not Available Not Available 11/13/2024 16:37:01/16/20 24 01/16/2024 CBC W Auto Diffe renti al panel - Blood basophils [#/volume] in blood by automated count 0.02 text: 0.00 - 0.13 x10e9/ L Not Available Not Available 11/13/2024 16:37:01/16/20 24 01/16/2024 CBC W Auto Diffe renti al panel - Blood interpretati on and review of laboratory results Abnorm al Not Available Not Available 16:37:09 01/17/20 24 01/17/2024 CBC W Auto Diffe renti al panel - Blood leukocytes [#/volume] in blood by automated count 19.1 text: 4.0 - 10.7 x10e9/ L high Not Available Not Available 11/13/2024 16:37:09 01/17/20 24 01/17/2024 CBC W Auto Diffe renti al panel - Blood erythrocytes [#/volume] in blood by automated count 3.94 text: 3.90 - 5.20 x10e12 /L Not Available Not Available 11/13/2024 16:37:01/17/20 24 01/17/2024 CBC W Auto Diffe renti al panel - Blood hemoglobin [mass/volume ] in blood 10.7 g/dL low: 11.9g/ dLhigh : 15.8g/ dL low Not Available Not Available 11/13/2024 16:37:01/17/20 24 01/17/2024 CBC W Auto Diffe renti al panel - Blood hematocrit [volume fraction] of blood by automated count 33.9 % low: 34.8%h igh: 46.1% low Not Available Not Available 11/13/2024 16:37:01/17/20 24 01/17/2024 CBC W Auto Diffe renti al panel - Blood MCV [entitic mean volume] in red blood cells by automated count 86 fL low: 80fLhi gh: 98fL Not Available Not Available 11/13/2024 16:37:09 01/17/20 24 01/17/2024 CBC W Auto Diffe renti al panel - Blood MCH [entitic mass] by automated count 27.2 pg low: 26.7pg high: 33.6pg Not Available Not Available 11/13/2024 16:37:09 01/17/20 24 01/17/2024 CBC W Auto Diffe renti al panel - Blood MCHC [entitic mass/volume] in red blood cells by automated count 31.6 g/dL low: 31.7g/ dLhigh : 36.3g/ dL low Not Available Not Available 11/13/2024 16:37:01/17/20 24 01/17/2024 CBC W Auto Diffe renti al panel - Blood erythrocyte [distwidth] in red blood cells by automated count 16 % low: 11.3%h igh: 14.8% high Not Available Not Available 11/13/2024 16:37:01/17/20 24 01/17/2024 CBC W Auto Diffe renti al panel - Blood platelets [#/volume] in blood by automated count 150 text: 150 - 420 x10e9/ L Not Available Not Available 11/13/2024 16:37:09 01/17/20 24 01/17/2024 CBC W Auto Diffe renti al panel - Blood platelet [entitic mean volume] in blood by automated count 12 fL low: 7.8fLh igh: 11.4fL high Not Available Not Available 11/13/2024 16:37:09 01/17/20 24 01/17/2024 CBC W Auto Diffe renti al panel - Blood neutrophils/ leukocytes in blood by automated count 85.9 % low: 41%hig h: 74% high Not Available Not Available 11/13/2024 16:37:09 01/17/20 24 01/17/2024 CBC W Auto Diffe renti al panel - Blood lymphocytes/ leukocytes in blood by automated count 9.1 % low: 17%hig h: 47% low Not Available Not Available 11/13/2024 16:37:09 01/17/20 24 01/17/2024 CBC W Auto Diffe renti al panel - Blood monocytes/le ukocytes in blood by automated count 3.3 % low: 3%high : 11% Not Available Not Available 11/13/2024 16:37:09 01/17/20 24 01/17/2024 CBC W Auto Diffe renti al panel - Blood eosinophils/ leukocytes in blood by automated count 0 % low: 0%high : 7% Not Available Not Available 11/13/2024 16:37:09 01/17/20 24 01/17/2024 CBC W Auto Diffe renti al panel - Blood basophils/le ukocytes in blood by automated count 0.2 % low: 0%high : 1.6% Not Available Not Available 11/13/2024 16:37:09 01/17/20 24 01/17/2024 CBC W Auto Diffe renti al panel - Blood immature granulocytes /leukocytes in blood by automated count 1.5 % low: 0%high : 1% high Not Available Not Available 11/13/2024 16:37:09 01/17/20 24 01/17/2024 CBC W Auto Diffe renti al panel - Blood neutrophils [#/volume] in blood by automated count 16.42 text: 1.60 - 7.50 x10e9/ L high Not Available Not Available 11/13/2024 16:37:01/17/20 24 01/17/2024 CBC W Auto Diffe renti al panel - Blood lymphocytes [#/volume] in blood by automated count 1.73 text: 1.00 - 4.40 x10e9/ L Not Available Not Available 11/13/2024 16:37:01/17/20 24 01/17/2024 CBC W Auto Diffe renti al panel - Blood monocytes [#/volume] in blood by automated count 0.64 text: 0.15 - 1.00 x10e9/ L Not Available Not Available 11/13/2024 16:37:09 01/17/20 24 01/17/2024 CBC W Auto Diffe renti al panel - Blood eosinophils [#/volume] in blood 0 text: 0.00 - 0.60 x10e9/ L Not Available Not Available 11/13/2024 16:37:09 01/17/20 24 01/17/2024 CBC W Auto Diffe renti al panel - Blood basophils [#/volume] in blood by automated count 0.03 text: 0.00 - 0.13 x10e9/ L Not Available Not Available 11/13/2024 16:37:09 01/17/20 24 01/17/2024 CBC W Auto Diffe renti al panel - Blood interpretati on and review of laboratory results Abnorm al Not Available Not Available 16:37:09 01/17/20 24 01/17/2024 PT and aPTT and Fibri nogen panel - Plate let poor plasm a by Coagu latio n assay prothrombin time (PT) 12.8 text: 12.1 - 14.8 sec Not Available Not Available 11/13/2024 16:37:09 01/17/20 24 01/17/2024 PT and aPTT and Fibri nogen panel - Plate let poor plasm a by Coagu latio n assay INR in platelet poor plasma by coagulation assay 1 low: 0.9hig h: 1.1 Not Available Not Available 11/13/2024 16:37:09 01/17/20 24 01/17/2024 PT and aPTT and Fibri nogen panel - Plate let poor plasm a by Coagu latio n assay APTT in platelet poor plasma by coagulation assay 22.6 text: 23.0 - 38.4 sec low Not Available Not Available 11/13/2024 16:37:01/17/20 24 01/17/2024 PT and aPTT and Fibri nogen panel - Plate let poor plasm a by Coagu latio n assay fibrinogen [mass/volume ] in platelet poor plasma by coagulation assay 349 mg/dL low: 200mg/ dLhigh : 400mg/ dL Not Available Not Available 11/13/2024 16:37:01/17/20 24 01/17/2024 PT and aPTT and Fibri nogen panel - Plate let poor plasm a by Coagu latio n assay fibrin D-dimer feu [mass/volume ] in platelet poor plasma 0.91 text: 0.27 - 0.50 ug/mL feu high Not Available Not Available 11/13/2024 16:37:01/17/20 24 01/17/2024 PT and aPTT and Fibri nogen panel - Plate let poor plasm a by Coagu latio n assay platelets [#/volume] in blood by automated count 154 text: 150 - 420 x10e9/ L Not Available Not Available 11/13/2024 16:37:01/17/20 24 01/17/2024 PT and aPTT and Fibri nogen panel - Plate let poor plasm a by Coagu latio n assay Unknown Analyte Conven tional Warfar in Antico agulan t Therap y INR Refere nce Range: 2.0-3. 0 Intens jorge alberto Warfar in Antico agulan t Therap y INR Refere nce Range: 2.5-3. 5 Hepari n Therap eutic Range for PTT: 69.0 - 110.0 second s. In the absenc e of clinic al sympto ms, a value less than or equal to 0.5 mcg/mL FEU signif icantl y decrea ses the probab ility of PE/DVT (negat jorge alberto predic tive value >95%). 1 mcg/ml FEU = 1 Fibrin ogen Equiva lent Unit (appro ximate s 0.5 mcg/mL of D-dime r). ISTH DIAGNO STIC SCORIN G SYSTEM FOR DIC ------ ------ ------ ------ ------ ------ ------ ------ ------ ------ ------ ------ ------ ------ Score 0 1 2 3 ____ _ ____ _ __ _ Platel et Count (x10^3 /uL) > 100 <100 < 50 N/A ____ _ ____ _ __ ___ ___ __ PT Prolon gation above Upper limit of normal 0-3 3-6 > 6 N/A Range (secon ds) ____ _ ____ _ __ ___ ___ __ Fibrin ogen (mg/dL ) >100 < 100 N/A N/A ____ _ ____ _ __ ___ ___ __ D-Dime r (mcg/m L FEU) < 0.50 N/A 0.50-5 .0 > 5 ____ _ ____ _ __ ___ ___ __ Calcul ate Cumula tive Score: > or = 5: compat ible with overt DIC < 5: sugges tive for non-ov ert DIC N/A = Non applic able Refere nce: Br. J. Haemat ol. 145:24 -33,20 09. Not Available Not Available 16:37:01/17/20 24 01/17/2024 PT and aPTT and Fibri nogen panel - Plate let poor plasm a by Coagu latio n assay interpretati on and review of laboratory results Abnorm al Not Available Not Available 16:37:01/18/20 24 01/18/2024 PT and aPTT and Fibri nogen panel - Plate let poor plasm a by Coagu latio n assay prothrombin time (PT) 13 text: 12.1 - 14.8 sec Not Available Not Available 11/13/2024 16:37:01/18/20 24 01/18/2024 PT and aPTT and Fibri nogen panel - Plate let poor plasm a by Coagu latio n assay INR in platelet poor plasma by coagulation assay 1 low: 0.9hig h: 1.1 Not Available Not Available 11/13/2024 16:37:01/18/20 24 01/18/2024 PT and aPTT and Fibri nogen panel - Plate let poor plasm a by Coagu latio n assay APTT in platelet poor plasma by coagulation assay 23.7 text: 23.0 - 38.4 sec Not Available Not Available 11/13/2024 16:37:01/18/20 24 01/18/2024 PT and aPTT and Fibri nogen panel - Plate let poor plasm a by Coagu latio n assay fibrinogen [mass/volume ] in platelet poor plasma by coagulation assay 347 mg/dL low: 200mg/ dLhigh : 400mg/ dL Not Available Not Available 11/13/2024 16:37:01/18/20 24 01/18/2024 PT and aPTT and Fibri nogen panel - Plate let poor plasm a by Coagu latio n assay fibrin D-dimer feu [mass/volume ] in platelet poor plasma 0.9 text: 0.27 - 0.50 ug/mL feu high Not Available Not Available 11/13/2024 16:37:01/18/20 24 01/18/2024 PT and aPTT and Fibri nogen panel - Plate let poor plasm a by Coagu latio n assay platelets [#/volume] in blood by automated count 144 text: 150 - 420 x10e9/ L low Not Available Not Available 11/13/2024 16:37:10 01/18/2001/18/2024 PT and aPTT and Fibri nogen panel - Plate let poor plasm a by Coagu latio n assay Unknown Analyte Conven tional Warfar in Antico agulan t Therap y INR Refere nce Range: 2.0-3. 0 Intens jorge alberto Warfar in Antico agulan t Therap y INR Refere nce Range: 2.5-3. 5 Hepari n Therap eutic Range for PTT: 69.0 - 110.0 second s. In the absenc e of clinic al sympto ms, a value less than or equal to 0.5 mcg/mL FEU signif icantl y decrea ses the probab ility of PE/DVT (negat jorge alberto predic tive value >95%). 1 mcg/ml FEU = 1 Fibrin ogen Equiva lent Unit (appro ximate s 0.5 mcg/mL of D-dime r). ISTH DIAGNO STIC SCORIN G SYSTEM FOR DIC ------ ------ ------ ------ ------ ------ ------ ------ ------ ------ ------ ------ ------ ------ Score 0 1 2 3 ____ _ ____ _ __ _ Platel et Count (x10^3 /uL) > 100 <100 < 50 N/A ____ _ ____ _ __ ___ ___ __ PT Prolon gation above Upper limit of normal 0-3 3-6 > 6 N/A Range (secon ds) ____ _ ____ _ __ ___ ___ __ Fibrin ogen (mg/dL ) >100 < 100 N/A N/A ____ _ ____ _ __ ___ ___ __ D-Dime r (mcg/m L FEU) < 0.50 N/A 0.50-5 .0 > 5 ____ _ ____ _ __ ___ ___ __ Calcul ate Cumula tive Score: > or = 5: compat ible with overt DIC < 5: sugges tive for non-ov ert DIC N/A = Non applic able Refere nce: Br. J. Haemat ol. 145:24 -33,20 09. Not Available Not Available 16:37:10 01/18/2001/18/2024 PT and aPTT and Fibri nogen panel - Plate let poor plasm a by Zachariahgu latio n assay interpretati on and review of laboratory results Abnorm al Not Available Not Available 16:37:10 01/18/2001/18/2024 CBC panel - Blood by Autom ated count leukocytes [#/volume] in blood by automated count 14.7 text: 4.0 - 10.7 x10e9/ L high Not Available Not Available 11/13/2024 16:37:10 01/18/20 24 01/18/2024 CBC panel - Blood by Autom ated count erythrocytes [#/volume] in blood by automated count 3.79 text: 3.90 - 5.20 x10e12 /L low Not Available Not Available 11/13/2024 16:37:10 01/18/20 24 01/18/2024 CBC panel - Blood by Autom ated count hemoglobin [mass/volume ] in blood 10.2 g/dL low: 11.9g/ dLhigh : 15.8g/ dL low Not Available Not Available 11/13/2024 16:37:10 01/18/20 24 01/18/2024 CBC panel - Blood by Autom ated count hematocrit [volume fraction] of blood by automated count 32.7 % low: 34.8%h igh: 46.1% low Not Available Not Available 11/13/2024 16:37:10 01/18/20 24 01/18/2024 CBC panel - Blood by Autom ated count MCV [entitic mean volume] in red blood cells by automated count 86.3 fL low: 80fLhi gh: 98fL Not Available Not Available 11/13/2024 16:37:10 01/18/20 24 01/18/2024 CBC panel - Blood by Autom ated count MCH [entitic mass] by automated count 26.9 pg low: 26.7pg high: 33.6pg Not Available Not Available 11/13/2024 16:37:10 01/18/20 24 01/18/2024 CBC panel - Blood by Autom ated count MCHC [entitic mass/volume] in red blood cells by automated count 31.2 g/dL low: 31.7g/ dLhigh : 36.3g/ dL low Not Available Not Available 11/13/2024 16:37:10 01/18/20 24 01/18/2024 CBC panel - Blood by Autom ated count erythrocyte [distwidth] in red blood cells by automated count 16 % low: 11.3%h igh: 14.8% high Not Available Not Available 11/13/2024 16:37:10 01/18/20 24 01/18/2024 CBC panel - Blood by Autom ated count platelets [#/volume] in blood by automated count 135 text: 150 - 420 x10e9/ L low Not Available Not Available 11/13/2024 16:37:10 01/18/20 24 01/18/2024 CBC panel - Blood by Autom ated count platelet [entitic mean volume] in blood by automated count 12.5 fL low: 7.8fLh igh: 11.4fL high Not Available Not Available 11/13/2024 16:37:10 01/18/20 24 01/18/2024 CBC panel - Blood by Autom ated count interpretati on and review of laboratory results Abnorm al Not Available Not Available 16:37:10 01/18/20 24 01/18/2024 Blood type and Indir ect antib vernon scree n panel - Blood ABO and Rh group [type] in blood B POS Histo ry check ed. Not Available Not Available 11/13/2024 16:37:10 01/18/20 24 01/18/2024 Blood type and Indir ect antib vernon scree n panel - Blood blood group antibody screen [presence] in serum or plasma NEG Not Available Not Available 11/04 16:37:10 01/19/20 24 01/19/2024 PT and aPTT and Fibri nogen panel - Plate let poor plasm a by [place] latio n assay prothrombin time (PT) 12.8 text: 12.1 - 14.8 sec Not Available Not Available 11/13/2024 16:37:10 01/19/20 24 01/19/2024 PT and aPTT and Fibri nogen panel - Plate let poor plasm a by [place]agu latio n assay INR in platelet poor plasma by coagulation assay 1 low: 0.9hig h: 1.1 Not Available Not Available 11/13/2024 16:37:10 01/19/20 24 01/19/2024 PT and aPTT and Fibri nogen panel - Plate let poor plasm a by [place] latio n assay APTT in platelet poor plasma by coagulation assay 23.7 text: 23.0 - 38.4 sec Not Available Not Available 11/13/2024 16:37:10 01/19/20 24 01/19/2024 PT and aPTT and Fibri nogen panel - Plate let poor plasm a by [place]agu latio n assay fibrinogen [mass/volume ] in platelet poor plasma by coagulation assay 372 mg/dL low: 200mg/ dLhigh : 400mg/ dL Not Available Not Available 11/13/2024 16:37:01/19/2001/19/2024 PT and aPTT and Fibri nogen panel - Plate let poor plasm a by [place]agu latio n assay fibrin D-dimer feu [mass/volume ] in platelet poor plasma 0.95 text: 0.27 - 0.50 ug/mL feu high Not Available Not Available 11/13/2024 16:37:01/19/2001/19/2024 PT and aPTT and Fibri nogen panel - Plate let poor plasm a by [place]agu latio n assay platelets [#/volume] in blood by automated count 160 text: 150 - 420 x10e9/ L Not Available Not Available 11/13/2024 16:37:01/19/2001/19/2024 PT and aPTT and Fibri nogen panel - Plate let poor plasm a by [place]agu latio n assay Unknown Analyte Conven tional Warfar in Antico agulan t Therap y INR Refere nce Range: 2.0-3. 0 Intens jorge alberto Warfar in Antico agulan t Therap y INR Refere nce Range: 2.5-3. 5 Hepari n Therap eutic Range for PTT: 69.0 - 110.0 second s. In the absenc e of clinic al sympto ms, a value less than or equal to 0.5 mcg/mL FEU signif icantl y decrea ses the probab ility of PE/DVT (negat jorge alberto predic tive value >95%). 1 mcg/ml FEU = 1 Fibrin ogen Equiva lent Unit (appro ximate s 0.5 mcg/mL of D-dime r). ISTH DIAGNO STIC SCORIN G SYSTEM FOR DIC ------ ------ ------ ------ ------ ------ ------ ------ ------ ------ ------ ------ ------ ------ Score 0 1 2 3 ____ _ ____ _ __ _ Platel et Count (x10^3 /uL) > 100 <100 < 50 N/A ____ _ ____ _ __ ___ ___ __ PT Prolon gation above Upper limit of normal 0-3 3-6 > 6 N/A Range (secon ds) ____ _ ____ _ __ ___ ___ __ Fibrin ogen (mg/dL ) >100 < 100 N/A N/A ____ _ ____ _ __ ___ ___ __ D-Dime r (mcg/m L FEU) < 0.50 N/A 0.50-5 .0 > 5 ____ _ ____ _ __ ___ ___ __ Calcul ate Cumula tive Score: > or = 5: compat ible with overt DIC < 5: sugges tive for non-ov ert DIC N/A = Non applic able Refere nce: Br. Brianna Sandoval ol. 145:24 -33,20 09. Not Available Not Available 16:37:10 01/19/20 24 01/19/2024 PT and aPTT and Fibri nogen panel - Plate let poor plasm a by Deng rogers n assay interpretati on and review of laboratory results Abnorm al Not Available Not Available 16:37:10 01/19/20 24 01/19/2024 CBC panel - Blood by Autom ated count leukocytes [#/volume] in blood by automated count 15.7 text: 4.0 - 10.7 x10e9/ L high Not Available Not Available 11/13/2024 16:37:10 01/19/20 24 01/19/2024 CBC panel - Blood by Autom ated count erythrocytes [#/volume] in blood by automated count 3.81 text: 3.90 - 5.20 x10e12 /L low Not Available Not Available 11/13/2024 16:37:10 01/19/20 24 01/19/2024 CBC panel - Blood by Autom ated count hemoglobin [mass/volume ] in blood 10.5 g/dL low: 11.9g/ dLhigh : 15.8g/ dL low Not Available Not Available 11/13/2024 16:37:10 01/19/20 24 01/19/2024 CBC panel - Blood by Autom ated count hematocrit [volume fraction] of blood by automated count 32.6 % low: 34.8%h igh: 46.1% low Not Available Not Available 11/13/2024 16:37:10 01/19/20 24 01/19/2024 CBC panel - Blood by Autom ated count MCV [entitic mean volume] in red blood cells by automated count 85.6 fL low: 80fLhi gh: 98fL Not Available Not Available 11/13/2024 16:37:10 01/19/20 24 01/19/2024 CBC panel - Blood by Autom ated count MCH [entitic mass] by automated count 27.6 pg low: 26.7pg high: 33.6pg Not Available Not Available 11/13/2024 16:37:10 01/19/20 24 01/19/2024 CBC panel - Blood by Autom ated count MCHC [entitic mass/volume] in red blood cells by automated count 32.2 g/dL low: 31.7g/ dLhigh : 36.3g/ dL Not Available Not Available 11/13/2024 16:37:10 01/19/20 24 01/19/2024 CBC panel - Blood by Autom ated count erythrocyte [distwidth] in red blood cells by automated count 15.9 % low: 11.3%h igh: 14.8% high Not Available Not Available 11/13/2024 16:37:10 01/19/20 24 01/19/2024 CBC panel - Blood by Autom ated count platelets [#/volume] in blood by automated count 154 text: 150 - 420 x10e9/ L Not Available Not Available 11/13/2024 16:37:10 01/19/20 24 01/19/2024 CBC panel - Blood by Autom ated count platelet [entitic mean volume] in blood by automated count 12.5 fL low: 7.8fLh igh: 11.4fL high Not Available Not Available 11/13/2024 16:37:10 01/19/20 24 01/19/2024 CBC panel - Blood by Autom ated count interpretati on and review of laboratory results Abnorm al Not Available Not Available 16:37:10 01/20/20 24 01/20/2024 PT and aPTT and Fibri nogen panel - Plate let poor plasm a by Coagu latio n assay prothrombin time (PT) 12.3 text: 12.1 - 14.8 sec Not Available Not Available 11/13/2024 16:32:22 01/20/20 24 01/20/2024 PT and aPTT and Fibri nogen panel - Plate let poor plasm a by Coagu latio n assay INR in platelet poor plasma by coagulation assay 0.9 low: 0.9hig h: 1.1 Not Available Not Available 11/13/2024 16:32:22 01/20/20 24 01/20/2024 PT and aPTT and Fibri nogen panel - Plate let poor plasm a by [place]agu latio n assay APTT in platelet poor plasma by coagulation assay 23.4 text: 23.0 - 38.4 sec Not Available Not Available 11/13/2024 16:32:22 01/20/20 24 01/20/2024 PT and aPTT and Fibri nogen panel - Plate let poor plasm a by Coagu latio n assay fibrinogen [mass/volume ] in platelet poor plasma by coagulation assay 464 mg/dL low: 200mg/ dLhigh : 400mg/ dL high Not Available Not Available 11/13/2024 16:32:22 01/20/20 24 01/20/2024 PT and aPTT and Fibri nogen panel - Plate let poor plasm a by Coagu latio n assay fibrin D-dimer feu [mass/volume ] in platelet poor plasma 0.88 text: 0.27 - 0.50 ug/mL feu high Not Available Not Available 11/13/2024 16:32:22 01/20/20 24 01/20/2024 PT and aPTT and Fibri nogen panel - Plate let poor plasm a by Coagu latio n assay platelets [#/volume] in blood by automated count 176 text: 150 - 420 x10e9/ L Not Available Not Available 11/13/2024 16:32:22 01/20/20 24 01/20/2024 PT and aPTT and Fibri nogen panel - Plate let poor plasm a by Coagu latio n assay Unknown Analyte Conven tional Warfar in Antico agulan t Therap y INR Refere nce Range: 2.0-3. 0 Intens jorge alberto Warfar in Antico agulan t Therap y INR Refere nce Range: 2.5-3. 5 Hepari n Therap eutic Range for PTT: 69.0 - 110.0 second s. In the absenc e of clinic al sympto ms, a value less than or equal to 0.5 mcg/mL FEU signif icantl y decrea ses the probab ility of PE/DVT (negat jorge alberto predic tive value >95%). 1 mcg/ml FEU = 1 Fibrin ogen Equiva lent Unit (appro ximate s 0.5 mcg/mL of D-dime r). ISTH DIAGNO STIC SCORIN G SYSTEM FOR DIC ------ ------ ------ ------ ------ ------ ------ ------ ------ ------ ------ ------ ------ ------ Score 0 1 2 3 ____ _ ____ _ __ _ Platel et Count (x10^3 /uL) > 100 <100 < 50 N/A ____ _ ____ _ __ ___ ___ __ PT Prolon gation above Upper limit of normal 0-3 3-6 > 6 N/A Range (secon ds) ____ _ ____ _ __ ___ ___ __ Fibrin ogen (mg/dL ) >100 < 100 N/A N/A ____ _ ____ _ __ ___ ___ __ [place] [place] < 0.50 N/A 0.50-5 .0 > 5 ____ _ ____ _ __ ___ ___ __ Calcul ate Cumula tive Score: > or = 5: compat ible with overt DIC < 5: sugges tive for non-ov ert DIC N/A = Non applic able Refere nce: Br. J. Haemat ol. 145:24 -33,20 09. Not Available Not Available 16:32:22 01/20/20 24 01/20/2024 PT and aPTT and Fibri nogen panel - Plate let poor plasm a by Deng atkinson assay interpretati on and review of laboratory results Abnorm al Not Available Not Available 16:32:22 01/20/20 24 01/20/2024 CBC panel - Blood by Autom ated count leukocytes [#/volume] in blood by automated count 16.5 text: 4.0 - 10.7 x10e9/ L high Not Available Not Available 11/13/2024 16:32:22 01/20/20 24 01/20/2024 CBC panel - Blood by Autom ated count erythrocytes [#/volume] in blood by automated count 4.08 text: 3.90 - 5.20 x10e12 /L Not Available Not Available 11/13/2024 16:32:22 01/20/20 24 01/20/2024 CBC panel - Blood by Autom ated count hemoglobin [mass/volume ] in blood 11.1 g/dL low: 11.9g/ dLhigh : 15.8g/ dL low Not Available Not Available 11/13/2024 16:32:22 01/20/20 24 01/20/2024 CBC panel - Blood by Autom ated count hematocrit [volume fraction] of blood by automated count 35.1 % low: 34.8%h igh: 46.1% Not Available Not Available 11/13/2024 16:32:22 01/20/20 24 01/20/2024 CBC panel - Blood by Autom ated count MCV [entitic mean volume] in red blood cells by automated count 86 fL low: 80fLhi gh: 98fL Not Available Not Available 11/13/2024 16:32:22 01/20/20 24 01/20/2024 CBC panel - Blood by Autom ated count MCH [entitic mass] by automated count 27.2 pg low: 26.7pg high: 33.6pg Not Available Not Available 11/13/2024 16:32:22 01/20/20 24 01/20/2024 CBC panel - Blood by Autom ated count MCHC [entitic mass/volume] in red blood cells by automated count 31.6 g/dL low: 31.7g/ dLhigh : 36.3g/ dL low Not Available Not Available 11/13/2024 16:32:22 01/20/20 24 01/20/2024 CBC panel - Blood by Autom ated count erythrocyte [distwidth] in red blood cells by automated count 16.1 % low: 11.3%h igh: 14.8% high Not Available Not Available 11/13/2024 16:32:22 01/20/20 24 01/20/2024 CBC panel - Blood by Autom ated count platelets [#/volume] in blood by automated count 179 text: 150 - 420 x10e9/ L Not Available Not Available 11/13/2024 16:32:22 01/20/20 24 01/20/2024 CBC panel - Blood by Autom ated count platelet [entitic mean volume] in blood by automated count 12.1 fL low: 7.8fLh igh: 11.4fL high Not Available Not Available 11/13/2024 16:32:22 01/20/20 24 01/20/2024 CBC panel - Blood by Autom ated count interpretati on and review of laboratory results Abnorm al Not Available Not Available 16:32:22 01/21/20 24 01/21/2024 Blood type and Indir ect antib vernon scree n panel - Blood ABO and Rh group [type] in blood B POS Histo ry check ed. Not Available Not Available 11/13/2024 16:32:22 01/21/20 24 01/21/2024 Blood type and Indir ect antib vernon scree n panel - Blood blood group antibody screen [presence] in serum or plasma NEG Not Available Not Available 11/04 16:32:22 01/24/20 24 01/24/2024 urina lysis , dipst ick Leukocytes Negati ve Not Available In-Office Order Internal Use Only DO Not Attach Compendium DO Not Attach Compendium, Do Not Delete/merge, [id number] 01/24/2024 11:28:48 01/24/20 24 01/24/2024 urina lysis , dipst ick Nitrite negati ve Not Available In-Office Order Internal Use Only DO Not Attach Compendium DO Not Attach Compendium, Do Not Delete/merge, [facility] 01/24/2024 11:28:48 01/24/20 24 01/24/2024 urina lysis , dipst ick Urobilinogen .2 Not Available In-Of fice Order Internal Use Only DO Not Attach Compendium DO Not Attach Compendium, Do Not Delete/merge, [facility] 01/24/2024 11:28:48 01/24/20 24 01/24/2024 urina lysis , dipst ick Protein Negati ve Not Available In-Office Order Internal Use Only DO Not Attach Compendium DO Not Attach Compendium, Do Not Delete/merge, [facility] 01/24/2024 11:28:48 01/24/20 24 01/24/2024 urina lysis , dipst ick pH 7.0 Not Available In-Office Order Internal Use Only DO Not Attach Compendium DO Not Attach Compendium, Do Not Delete/merge, [facility] 01/24/2024 11:28:48 01/24/20 24 01/24/2024 urina lysis , dipst ick Blood Large Not Available In-Office Order Internal Use Only DO Not Attach Compendium DO Not Attach Compendium, Do Not Delete/merge, [facility] 01/24/2024 11:28:48 01/24/20 24 01/24/2024 urina lysis , dipst ick Specific Coyle 1.020 Not Available In-Off ice Order Internal Use Only DO Not Attach Compendium DO Not Attach Compendium, Do Not Delete/merge, [facility] 01/24/2024 11:28:48 01/24/20 24 01/24/2024 urina lysis , dipst ick Ketone Negati ve Not Available In-Office Order Internal Use Only DO Not Attach Compendium DO Not Attach Compendium, Do Not Delete/merge, [facility] 01/24/2024 11:28:48 01/24/20 24 01/24/2024 urina lysis , dipst ick Bilirubin Negati ve Not Available In-Office Order Internal Use Only DO Not Attach Compendium DO Not Attach Compendium, Do Not Delete/merge, [facility] 01/24/2024 11:28:48 01/24/20 24 01/24/2024 urina lysis , dipst ick Glucose Negati ve Not Available In-Office Order Internal Use Only DO Not Attach Compendium DO Not Attach Compendium, Do Not Delete/merge, 01/24/2024 11:28:48 01/24/20 24 01/24/2024 urina lysis , dipst ick Appearance Clear Not Available In-Offi ce Order Internal Use Only DO Not Attach Compendium DO Not Attach Compendium, Do Not Delete/merge, 01/24/2024 11:28:48 01/24/20 24 01/24/2024 urina lysis , dipst ick Color Dark Yellow Not Available In-Office Order Internal Use Only DO Not Attach Compendium DO Not Attach Compendium, Do Not Delete/merge, 01/24/2024 11:28:48 02/12/20 24 02/12/2024 urina lysis , dipst ick Leukocytes Small Not Available In-Offi ce Order Internal Use Only DO Not Attach Compendium DO Not Attach Compendium, Do Not Delete/merge, 02/12/2024 11:43:39 02/12/20 24 02/12/2024 urina lysis , dipst ick Nitrite negati ve Not Available In-Office Order Internal Use Only DO Not Attach Compendium DO Not Attach Compendium, Do Not Delete/merge, 02/12/2024 11:43:39 02/12/20 24 02/12/2024 urina lysis , dipst ick Urobilinogen .2 Not Available In-Of fice Order Internal Use Only DO Not Attach Compendium DO Not Attach Compendium, Do Not Delete/merge, 02/12/2024 11:43:39 02/12/20 24 02/12/2024 urina lysis , dipst ick Protein Trace Not Available In-Office Order Internal Use Only DO Not Attach Compendium DO Not Attach Compendium, Do Not Delete/merge, 02/12/2024 11:43:39 02/12/20 24 02/12/2024 urina lysis , dipst ick pH 6.0 Not Available In-Office Order Internal Use Only DO Not Attach Compendium DO Not Attach Compendium, Do Not Delete/merge, 02/12/2024 11:43:39 02/12/2002/12/2024 urina lysis , dipst ick Blood Modera te Not Available In-Office Order Internal Use Only DO Not Attach Compendium DO Not Attach Compendium, Do Not Delete/merge, [facility] 02/12/2024 11:43:39 02/12/2002/12/2024 urina lysis , dipst ick Specific Coyle 1.030 Not Available In-Off ice Order Internal Use Only DO Not Attach Compendium DO Not Attach Compendium, Do Not Delete/merge, [facility] 02/12/2024 11:43:39 02/12/2002/12/2024 urina lysis , dipst ick Ketone Negati ve Not Available In-Office Order Internal Use Only DO Not Attach Compendium DO Not Attach Compendium, Do Not Delete/merge, [facility] 02/12/2024 11:43:39 02/12/2002/12/2024 urina lysis , dipst ick Bilirubin Negati ve Not Available In-Office Order Internal Use Only DO Not Attach Compendium DO Not Attach Compendium, Do Not Delete/merge, [facility] 02/12/2024 11:43:39 02/12/2002/12/2024 urina lysis , dipst ick Glucose Negati ve Not Available In-Office Order Internal Use Only DO Not Attach Compendium DO Not Attach Compendium, Do Not Delete/merge, [facility] 02/12/2024 11:43:39 02/12/2002/12/2024 urina lysis , dipst ick Appearance Cloudy Not Available In-Offi ce Order Internal Use Only DO Not Attach Compendium DO Not Attach Compendium, Do Not Delete/merge, [facility] 02/12/2024 11:43:39 02/12/20 24 02/12/2024 urina lysis , dipst ick Color Yellow Not Available In-Office Order Internal Use Only DO Not Attach Compendium DO Not Attach Compendium, Do Not Delete/merge, [facility] 02/12/2024 11:43:39 02/26/20 24 02/26/2024 urina lysis , dipst ick Leukocytes Negati ve Not Available In-Office Order Internal Use Only DO Not Attach Compendium DO Not Attach Compendium, Do Not Delete/merge, 02/26/2024 14:38:40 02/26/2002/26/2024 urina lysis , dipst ick Nitrite negati ve Not Available In-Office Order Internal Use Only DO Not Attach Compendium DO Not Attach Compendium, Do Not Delete/merge, 02/26/2024 14:38:40 02/26/2002/26/2024 urina lysis , dipst ick Urobilinogen 2 Not Available In-Of fice Order Internal Use Only DO Not Attach Compendium DO Not Attach Compendium, Do Not Delete/merge, 02/26/2024 14:38:40 02/26/2002/26/2024 urina lysis , dipst ick Protein 30 Not Available In-Office Order Internal Use Only DO Not Attach Compendium DO Not Attach Compendium, Do Not Delete/merge, 02/26/2024 14:38:40 02/26/2002/26/2024 urina lysis , dipst ick pH 7.5 Not Available In-Office Order Internal Use Only DO Not Attach Compendium DO Not Attach Compendium, Do Not Delete/merge, 02/26/2024 14:38:40 02/26/2002/26/2024 urina lysis , dipst ick Blood Large Not Available In-Office Order Internal Use Only DO Not Attach Compendium DO Not Attach Compendium, Do Not Delete/merge, 02/26/2024 14:38:40 02/26/2002/26/2024 urina lysis , dipst ick Specific Coyle 1.025 Not Available In-Off ice Order Internal Use Only DO Not Attach Compendium DO Not Attach Compendium, Do Not Delete/merge, 02/26/2024 14:38:40 02/26/2002/26/2024 urina lysis , dipst ick Ketone Negati ve Not Available In-Office Order Internal Use Only DO Not Attach Compendium DO Not Attach Compendium, Do Not Delete/merge, 02/26/2024 14:38:40 02/26/20 24 02/26/2024 urina lysis , dipst ick Bilirubin Negati ve Not Available In-Office Order Internal Use Only DO Not Attach Compendium DO Not Attach Compendium, Do Not Delete/merge, [id number] 02/26/2024 14:38:40 02/26/20 24 02/26/2024 urina lysis , dipst ick Glucose Negati ve Not Available In-Office Order Internal Use Only DO Not Attach Compendium DO Not Attach Compendium, Do Not Delete/merge, [id number] 02/26/2024 14:38:40 02/26/20 24 02/26/2024 urina lysis , dipst ick Appearance Cloudy Not Available In-Offi ce Order Internal Use Only DO Not Attach Compendium DO Not Attach Compendium, Do Not Delete/merge, [id number] 02/26/2024 14:38:40 02/26/20 24 02/26/2024 urina lysis , dipst ick Color Yellow Not Available In-Office Order Internal Use Only DO Not Attach Compendium DO Not Attach Compendium, Do Not Delete/merge, [id number] 02/26/2024 14:38:40 02/27/20 24 02/27/2024 Urina lysis compl ete W Refle x Cultu re panel - Urine service comment Cultur e not indica haley Not Available Not Available 05:18:01 02/27/20 24 02/27/2024 Urina lysis compl ete W Refle x Cultu re panel - Urine erythrocytes [#/area] in urine sediment by automated count 0-2 text: 0 - 5 # /hpf Not Available Not Available 10/30/2024 05:18:01 02/27/20 24 02/27/2024 Urina lysis compl ete W Refle x Cultu re panel - Urine leukocytes [#/area] in urine sediment by automated count 0-5 text: 0 - 5 # /hpf Not Available Not Available 10/30/2024 05:18:01 02/27/20 24 02/27/2024 Urina lysis compl ete W Refle x Cultu re panel - Urine bacteria [presence] in urine by automated None Seen text: none seen Not Available Not Available 10/30/2024 05:18:01 02/27/2002/27/2024 Urina lysis compl ete W Refle x Cultu re panel - Urine epithelial cells.squamo us [presence] in urine by automated 0-2 text: 0 - 5 /hpf Not Available Not Available 10/30/2024 05:18:01 02/27/20 24 02/27/2024 Urina lysis compl ete W Refle x Cultu re panel - Urine Unknown Analyte Not Available Not Available 10/06 05:18:01 02/27/2002/27/2024 Urina lysis panel - Urine by Autom ated color of urine by auto Yellow text: straw, yellow Not Available Not Available 10/30/2024 05:18:01 02/27/2002/27/2024 Urina lysis panel - Urine by Autom ated clarity in urine by refractometr y automated Clear text: clear Not Available Not Available 10/30/2024 05:18:01 02/27/2002/27/2024 Urina lysis panel - Urine by Autom ated glucose [presence] in urine by test strip Negati ve text: negati ve Not Available Not Available 10/30/2024 05:18:01 02/27/2002/27/2024 Urina lysis panel - Urine by Autom ated bilirubin.to dora [presence] in urine by test strip Negati ve text: negati ve Not Available Not Available 10/30/2024 05:18:01 02/27/2002/27/2024 Urina lysis panel - Urine by Autom ated ketones [presence] in urine by automated test strip Negati ve text: negati ve Not Available Not Available 10/30/2024 05:18:01 02/27/2002/27/2024 Urina lysis panel - Urine by Autom ated specific gravity of urine by test strip 1.005 low: 1.005h igh: 1.03 Not Available Not Available 10/30/2024 05:18:01 02/27/2002/27/2024 Urina lysis panel - Urine by Autom ated hemoglobin [presence] in urine by test strip 2+ text: negati ve abnormal Not Available Not Available 10/30/2024 05:18:01 02/27/2002/27/2024 Urina lysis panel - Urine by Autom ated pH of urine by test strip 6 pH low: 5pHhig h: 8pH Not Available Not Available 10/30/2024 05:18:01 02/27/2002/27/2024 Urina lysis panel - Urine by Autom ated protein [presence] in urine by test strip Negati ve text: negati ve Not Available Not Available 10/30/2024 05:18:01 02/27/2002/27/2024 Urina lysis panel - Urine by Autom ated urobilinogen [mass/volume ] in urine by automated test strip Negati ve text: negati ve mg/dL Not Available Not Available 10/30/2024 05:18:01 02/27/2002/27/2024 Urina lysis panel - Urine by Autom ated nitrite [presence] in urine by test strip Negati ve text: negati ve Not Available Not Available 10/30/2024 05:18:01 02/27/2002/27/2024 Urina lysis panel - Urine by Autom ated leukocyte esterase [presence] in urine by test strip Negati ve text: negati ve Not Available Not Available 10/30/2024 05:18:01 02/27/2002/27/2024 Urina lysis panel - Urine by Autom ated microscopic method - urine Urine micros copy to follow Not Available Not Available 05:18:01 02/27/2002/27/2024 Urina lysis panel - Urine by Autom ated service comment Cultur e not indica haley Not Available Not Available 05:18:01 02/27/2002/27/2024 Urina lysis panel - Urine by Autom ated Unknown Analyte Not Available Not Available 10/06 05:18:01 02/27/2002/27/2024 Urina lysis panel - Urine by Autom ated interpretati on and review of laboratory results Abnorm al Not Available Not Available 05:18:01 03/12/20 24 03/12/2024 Urina lysis dipst ick panel - Urine by Autom ated test strip color of urine Janett text: straw, yellow , dark yellow , light yellow abnormal Not Available Not Available 11/13/2024 16:44:35 03/12/20 24 03/12/2024 Urina lysis dipst ick panel - Urine by Autom ated test strip clarity of urine Clear text: clear Not Available Not Available 11/13/2024 16:44:35 03/12/20 24 03/12/2024 Urina lysis dipst ick panel - Urine by Autom ated test strip pH of urine by test strip 6 pH low: 5pHhig h: 8pH Not Available Not Available 11/13/2024 16:44:35 03/12/20 24 03/12/2024 Urina lysis dipst ick panel - Urine by Autom ated test strip protein [presence] in urine by test strip Negati ve text: negati ve Not Available Not Available 11/13/2024 16:44:35 03/12/20 24 03/12/2024 Urina lysis dipst ick panel - Urine by Autom ated test strip hemoglobin [presence] in urine by test strip 3+ text: negati ve abnormal Not Available Not Available 11/13/2024 16:44:35 03/12/20 24 03/12/2024 Urina lysis dipst ick panel - Urine by Autom ated test strip leukocyte esterase [presence] in urine by test strip Negati ve text: negati ve Not Available Not Available 11/13/2024 16:44:35 03/12/20 24 03/12/2024 Urina lysis dipst ick panel - Urine by Autom ated test strip nitrite [presence] in urine by test strip Negati ve text: negati ve Not Available Not Available 11/13/2024 16:44:35 03/12/20 24 03/12/2024 Urina lysis dipst ick panel - Urine by Autom ated test strip glucose [presence] in urine by test strip Negati ve text: negati ve Not Available Not Available 11/13/2024 16:44:35 03/12/20 24 03/12/2024 Urina lysis dipst ick panel - Urine by Autom ated test strip ketones [presence] in urine by test strip Negati ve text: negati ve Not Available Not Available 11/13/2024 16:44:35 03/12/20 24 03/12/2024 Urina lysis dipst ick panel - Urine by Autom ated test strip bilirubin.to dora [presence] in urine by test strip Negati ve text: negati ve Not Available Not Available 11/13/2024 16:44:35 03/12/20 24 03/12/2024 Urina lysis dipst ick panel - Urine by Autom ated test strip urobilinogen [units/volum e] in urine by test strip 0.2 eu/dL low: 0.1eu/ dLhigh : 1eu/dL Not Available Not Available 11/13/2024 16:44:35 03/12/20 24 03/12/2024 Urina lysis dipst ick panel - Urine by Autom ated test strip interpretati on and review of laboratory results Abnorm al Not Available Not Available 16:44:35 03/12/20 24 03/12/2024 Urina lysis dipst ick panel - Urine by Autom ated test strip color of urine Janett text: straw, yellow , dark yellow , light yellow abnormal Not Available Not Available 10/30/2024 05:18:03 03/12/20 24 03/12/2024 Urina lysis dipst ick panel - Urine by Autom ated test strip clarity of urine Clear text: clear Not Available Not Available 10/30/2024 05:18:03 03/12/20 24 03/12/2024 Urina lysis dipst ick panel - Urine by Autom ated test strip urinalysis dipstick panel - urine by automated test strip 1.02 low: 1.005h igh: 1.03 Not Available Not Available 10/30/2024 05:18:03 03/12/20 24 03/12/2024 Urina lysis dipst ick panel - Urine by Autom ated test strip pH of urine by test strip 6 pH low: 5pHhig h: 8pH Not Available Not Available 10/30/2024 05:18:03 03/12/2003/12/2024 Urina lysis dipst ick panel - Urine by Autom ated test strip protein [presence] in urine by test strip Negati ve text: negati ve Not Available Not Available 10/30/2024 05:18:03 03/12/20 24 03/12/2024 Urina lysis dipst ick panel - Urine by Autom ated test strip hemoglobin [presence] in urine by test strip 3+ text: negati ve abnormal Not Available Not Available 10/30/2024 05:18:03 03/12/20 24 03/12/2024 Urina lysis dipst ick panel - Urine by Autom ated test strip leukocyte esterase [presence] in urine by test strip Negati ve text: negati ve Not Available Not Available 10/30/2024 05:18:03 03/12/20 24 03/12/2024 Urina lysis dipst ick panel - Urine by Autom ated test strip nitrite [presence] in urine by test strip Negati ve text: negati ve Not Available Not Available 10/30/2024 05:18:03 03/12/20 24 03/12/2024 Urina lysis dipst ick panel - Urine by Autom ated test strip glucose [presence] in urine by test strip Negati ve text: negati ve Not Available Not Available 10/30/2024 05:18:03 03/12/20 24 03/12/2024 Urina lysis dipst ick panel - Urine by Autom ated test strip ketones [presence] in urine by test strip Negati ve text: negati ve Not Available Not Available 10/30/2024 05:18:03 03/12/20 24 03/12/2024 Urina lysis dipst ick panel - Urine by Autom ated test strip bilirubin.to dora [presence] in urine by test strip Negati ve text: negati ve Not Available Not Available 10/30/2024 05:18:03 03/12/20 24 03/12/2024 Urina lysis dipst ick panel - Urine by Autom ated test strip urobilinogen [units/volum e] in urine by test strip 0.2 eu/dL low: 0.1eu/ dLhigh : 1eu/dL Not Available Not Available 10/30/2024 05:18:03 03/12/20 24 03/12/2024 Urina lysis dipst ick panel - Urine by Autom ated test strip interpretati on and review of laboratory results Abnorm al Not Available Not Available 05:18:03 03/18/20 24 03/18/2024 urina lysis , dipst ick Leukocytes Small Not Available In-Offi ce Order Internal Use Only DO Not Attach Compendium DO Not Attach Compendium, Do Not Delete/merge, 03/18/2024 14:52:30 03/18/20 24 03/18/2024 urina lysis , dipst ick Nitrite negati ve Not Available In-Office Order Internal Use Only DO Not Attach Compendium DO Not Attach Compendium, Do Not Delete/merge, 03/18/2024 14:52:30 03/18/20 24 03/18/2024 urina lysis , dipst ick Urobilinogen 1 Not Available In-Of fice Order Internal Use Only DO Not Attach Compendium DO Not Attach Compendium, Do Not Delete/merge, 03/18/2024 14:52:30 03/18/20 24 03/18/2024 urina lysis , dipst ick Protein Negati ve Not Available In-Office Order Internal Use Only DO Not Attach Compendium DO Not Attach Compendium, Do Not Delete/merge, 03/18/2024 14:52:30 03/18/20 24 03/18/2024 urina lysis , dipst ick pH 7.0 Not Available In-Office Order Internal Use Only DO Not Attach Compendium DO Not Attach Compendium, Do Not Delete/merge, 03/18/2024 14:52:30 03/18/20 24 03/18/2024 urina lysis , dipst ick Blood Hemoly zed: Trace Not Available In-Office Order Internal Use Only DO Not Attach Compendium DO Not Attach Compendium, Do Not Delete/merge, 03/18/2024 14:52:30 03/18/20 24 03/18/2024 urina lysis , dipst ick Specific Coyle 1.020 Not Available In-Off ice Order Internal Use Only DO Not Attach Compendium DO Not Attach Compendium, Do Not Delete/merge, 03/18/2024 14:52:30 03/18/20 24 03/18/2024 urina lysis , dipst ick Ketone Negati ve Not Available In-Office Order Internal Use Only DO Not Attach Compendium DO Not Attach Compendium, Do Not Delete/merge, 2024 14:52:30 03/18/20 24 03/18/2024 urina lysis , dipst ick Bilirubin Negati ve Not Available In-Office Order Internal Use Only DO Not Attach Compendium DO Not Attach Compendium, Do Not Delete/merge, [id number] 03/18/2024 14:52:30 03/18/20 24 03/18/2024 urina lysis , dipst ick Glucose Negati ve Not Available In-Office Order Internal Use Only DO Not Attach Compendium DO Not Attach Compendium, Do Not Delete/merge, [id number] 03/18/2024 14:52:30 03/31/20 24 04/02/2024 CHLAM YDIA/ GC AMPLI FICAT ION chlamydia trachomatis, GERRI NEGATI VE negati ve Not Available [facility] ([facility]) [address], [place], [address], 04/02/2024 16:14:29 03/31/20 24 04/02/2024 CHLAM YDIA/ GC AMPLI FICAT ION neisseria gonorrhoeae, GERRI NEGATI VE negati ve Not Available [facility] ([facility]) [address], [place], [address], 04/02/2024 16:14:29 03/31/20 24 04/02/2024 STREP GP B GERRI strep gp B GERRI NEGATI VE negati ve Cente rs for Disea se Contr ol and Preve ntion (CDC) and [facility]uh can Congr ess of Obste trici ans and Gynec ologi sts (ACOG ) guide lines for preve ntion of perin atal group B strep tococ lennox (GBS) disea se speci fy co-co llect ion of a vagin al and recta l swab speci men to maxim ize sensi tivit y of GBS detec tion. Per the CDC and ACOG, swabb ing both the lower vagin a and rectu m subst antia lly incre ases the yield of detec tion jadyn red with sampl ing the vagin a alone . Penic illin G, ampic illin , or cefaz dorothy are indic ated for intra partu m proph ylaxi s of perin atal GBS colon izati on. Refle x susce ptibi lity testi ng shoul d be perfo rmed prior to use of clind amyci n only on GBS isola gabby from penic illin -ximena rgic women who are consi dered a high risk for anaph ylaxi s. Treat ment with vanco mycin witho ut addit ional testi ng is warra nted if resis tance to clind amyci n is noted . Not Available [facility] ([facility]) [address], [place], [address], 04/02/2024 16:14:30 03/31/20 24 04/01/2024 RPR, RFX QN RPR/C ONFIR M TP RPR NON REACTI VE nonrea ctive Not Available [facility] ([facility]) [address], [place], [address], 04/02/2024 16:14:31 03/31/20 24 04/01/2024 HIV AB/P2 4 AG WITH REFLE X HIV Ab/P24 Ag screen NON REACTI VE nonrea ctive HIV-1 /HIV- 2 antib odies and HIV-1 p24 antig en were NOT detec haley. There is no labor atory evide nce of HIV infec tion. HIV Negat jorge alberto Not Available [facility] ([facility]) [address], [place], [address], 04/02/2024 16:14:33 03/31/20 24 03/31/2024 urina lysis , dipst ick Leukocytes Small Not Available In-Offi ce Order Internal Use Only DO Not Attach Compendium DO Not Attach Compendium, Do Not Delete/merge, [id number] 03/31/2024 16:42:02 03/31/20 24 03/31/2024 urina lysis , dipst ick Nitrite negati ve Not Available In-Office Order Internal Use Only DO Not Attach Compendium DO Not Attach Compendium, Do Not Delete/merge, [id number] 03/31/2024 16:42:02 03/31/20 24 03/31/2024 urina lysis , dipst ick Urobilinogen .2 Not Available In-Of fice Order Internal Use Only DO Not Attach Compendium DO Not Attach Compendium, Do Not Delete/merge, [facility] 03/31/2024 16:42:02 03/31/20 24 03/31/2024 urina lysis , dipst ick Protein Negati ve Not Available In-Office Order Internal Use Only DO Not Attach Compendium DO Not Attach Compendium, Do Not Delete/merge, [facility] 03/31/2024 16:42:02 03/31/20 24 03/31/2024 urina lysis , dipst ick pH 7.0 Not Available In-Office Order Internal Use Only DO Not Attach Compendium DO Not Attach Compendium, Do Not Delete/merge, [facility] 03/31/2024 16:42:02 03/31/20 24 03/31/2024 urina lysis , dipst ick Blood Negati ve Not Available In-Office Order Internal Use Only DO Not Attach Compendium DO Not Attach Compendium, Do Not Delete/merge, [facility] 03/31/2024 16:42:02 03/31/20 24 03/31/2024 urina lysis , dipst ick Specific Coyle 1.020 Not Available In-Off ice Order Internal Use Only DO Not Attach Compendium DO Not Attach Compendium, Do Not Delete/merge, [facility] 03/31/2024 16:42:02 03/31/20 24 03/31/2024 urina lysis , dipst ick Ketone Trace Not Available In-Office Order Internal Use Only DO Not Attach Compendium DO Not Attach Compendium, Do Not Delete/merge, [facility] 03/31/2024 16:42:02 03/31/20 24 03/31/2024 urina lysis , dipst ick Bilirubin Negati ve Not Available In-Office Order Internal Use Only DO Not Attach Compendium DO Not Attach Compendium, Do Not Delete/merge, [facility] 03/31/2024 16:42:02 03/31/20 24 03/31/2024 urina lysis , dipst ick Glucose Negati ve Not Available In-Office Order Internal Use Only DO Not Attach Compendium DO Not Attach Compendium, Do Not Delete/merge, [id number] 03/31/2024 16:42:02 04/07/20 24 04/11/2024 Blood type and Indir ect antib vernon scree n panel - Blood blood product units requested [#] 2 Not Available Not Available 11/04 16:34:58 04/07/20 24 04/11/2024 Blood type and Indir ect antib vernon scree n panel - Blood ABO and Rh group panel - blood B POSITI VE Not Available Not Available 16:34:58 04/07/20 24 04/11/2024 Blood type and Indir ect antib vernon scree n panel - Blood blood group antibody screen [presence] in serum or plasma NEGATI VE Not Available Not Available 16:34:58 04/07/20 24 04/11/2024 Blood type and Indir ect antib vernon scree n panel - Blood specimen expiration date of blood 2023,2 359 Not Available Not Available 16:34:58 04/07/20 24 04/11/2024 Blood type and Indir ect antib vernon scree n panel - Blood blood product unit id [#] [id number] 1 Not Available Not Available 16:34:58 04/07/20 24 04/11/2024 Blood type and Indir ect antib vernon scree n panel - Blood blood product type PC LEUKOP OOR Not Available Not Available 16:34:58 04/07/20 24 04/11/2024 Blood type and Indir ect antib vernon scree n panel - Blood unit division 0 Not Available Not Available 02/2025 16:34:58 04/07/20 24 04/11/2024 Blood type and Indir ect antib vernon scree n panel - Blood blood bank comment UNIT RELEAS ED Not Available Not Available 16:34:58 04/07/20 24 04/11/2024 Blood type and Indir ect antib vernon scree n panel - Blood transfusion status qualitative OK TO TRANSF USE Not Available Not Available 16:34:58 12/02/20 24 04/11/2024 Blood type and Indir ect antib vernon scree n panel - Blood major crossmatch [interpretat ion] COMPAT IBLE Not Available Not Available 16:34:58 04/07/20 24 04/11/2024 Blood type and Indir ect antib vernon scree n panel - Blood blood product unit id [#] [id number] Not Available Not Available 16:34:58 04/07/20 24 04/11/2024 Blood type and Indir ect antib vernon scree n panel - Blood blood product type PC LEUKO PHERE BAG2 Not Available Not Available 16:34:58 04/07/20 24 04/11/2024 Blood type and Indir ect antib vernon scree n panel - Blood unit division 0 Not Available Not Available 02/2025 16:34:58 04/07/20 24 04/11/2024 Blood type and Indir ect antib vernon scree n panel - Blood blood bank comment UNIT RELEAS ED Not Available Not Available 16:34:58 04/07/20 24 04/11/2024 Blood type and Indir ect antib vernon scree n panel - Blood transfusion status qualitative OK TO TRANSF USE Not Available Not Available 16:34:58 04/07/20 24 04/11/2024 Blood type and Indir ect antib vernon scree n panel - Blood major crossmatch [interpretat ion] COMPAT IBLE Not Available Not Available 16:34:58 04/07/20 24 04/07/2024 CBC W Auto Diffe renti al panel - Blood leukocytes [#/volume] in blood by automated count 13.79 text: 4.00 - 10.80 x10'3/ uL high Not Available Not Available 11/13/2024 16:34:58 04/07/20 24 04/07/2024 CBC W Auto Diffe renti al panel - Blood erythrocytes [#/volume] in blood by automated count 4.12 text: 4.10 - 5.40 x10'6/ uL Not Available Not Available 11/13/2024 16:34:58 04/07/20 24 04/07/2024 CBC W Auto Diffe renti al panel - Blood hemoglobin [mass/volume ] in blood 10.3 text: 12.0 - 16.0 g/dL low Not Available Not Available 11/13/2024 16:34:58 04/07/20 24 04/07/2024 CBC W Auto Diffe renti al panel - Blood hematocrit [volume fraction] of blood by calculation 33 % low: 36%hig h: 47% low Not Available Not Available 11/13/2024 16:34:58 04/07/20 24 04/07/2024 CBC W Auto Diffe renti al panel - Blood MCV [entitic mean volume] in red blood cells 80.1 text: 78.0 - 100.0 fL Not Available Not Available 11/13/2024 16:34:58 04/07/20 24 04/07/2024 CBC W Auto Diffe renti al panel - Blood MCH [entitic mass] 25 pg low: 27pghi gh: 31pg low Not Available Not Available 11/13/2024 16:34:58 04/07/20 24 04/07/2024 CBC W Auto Diffe renti al panel - Blood MCHC [entitic mass/volume] in red blood cells 31.2 text: 33.0 - 36.0 g/dL low Not Available Not Available 11/13/2024 16:34:58 04/07/20 24 04/07/2024 CBC W Auto Diffe renti al panel - Blood RDW 15.5 % low: 11.5%h igh: 14.5% high Not Available Not Available 11/13/2024 16:34:58 04/07/20 24 04/07/2024 CBC W Auto Diffe renti al panel - Blood platelets [#/volume] in blood 206 text: 150 - 350 x10'3/ uL Not Available Not Available 11/13/2024 16:34:58 04/07/20 24 04/07/2024 CBC W Auto Diffe renti al panel - Blood platelet [entitic mean volume] in blood 11.8 text: 7.4 - 10.4 fL high Not Available Not Available 11/13/2024 16:34:58 04/07/20 24 04/07/2024 CBC W Auto Diffe renti al panel - Blood service comment NORMAL REFERE NCE RANGE NOT ESTABL ISHED FOR THE PROPOR TIONAL LEUKOC YTE DIFFER ENTIAL . Not Available Not Available 16:34:58 04/07/20 24 04/07/2024 CBC W Auto Diffe renti al panel - Blood neutrophils/ leukocytes in blood by automated count 78.9 % Not Available Not Available 11/04 16:34:58 04/07/20 24 04/07/2024 CBC W Auto Diffe renti al panel - Blood lymphocytes/ leukocytes in blood by automated count 15.2 % Not Available Not Available 11/04 16:34:58 04/07/20 24 04/07/2024 CBC W Auto Diffe renti al panel - Blood monocytes/le ukocytes in blood by automated count 3.8 % Not Available Not Available 11/04 16:34:58 04/07/20 24 04/07/2024 CBC W Auto Diffe renti al panel - Blood eosinophils/ leukocytes in blood by automated count 0.9 % Not Available Not Available 11/04 16:34:58 04/07/20 24 04/07/2024 CBC W Auto Diffe renti al panel - Blood basophils/le ukocytes in blood by automated count 0.3 % Not Available Not Available 11/04 16:34:58 04/07/20 24 04/07/2024 CBC W Auto Diffe renti al panel - Blood immature granulocytes /leukocytes in blood by automated count 0.9 % Not Available Not Available 11/04 16:34:58 04/07/20 24 04/07/2024 CBC W Auto Diffe renti al panel - Blood nucleated erythrocytes /leukocytes [ratio] in blood 0 % Not Available Not Available 11/04 16:34:58 04/07/20 24 04/07/2024 CBC W Auto Diffe renti al panel - Blood neutrophils [#/volume] in blood 10.88 text: 1.60 - 8.30 x10'3/ uL high Not Available Not Available 11/13/2024 16:34:58 04/07/20 24 04/07/2024 CBC W Auto Diffe renti al panel - Blood lymphocytes [#/volume] in blood 2.1 text: 0.80 - 4.70 x10'3/ uL Not Available Not Available 11/13/2024 16:34:58 04/07/20 24 04/07/2024 CBC W Auto Diffe renti al panel - Blood monocytes [#/volume] in blood 0.52 text: 0.00 - 1.50 x10'3/ uL Not Available Not Available 11/13/2024 16:34:58 04/07/20 24 04/07/2024 CBC W Auto Diffe renti al panel - Blood eosinophils [#/volume] in blood 0.13 text: 0.00 - 0.40 x10'3/ uL Not Available Not Available 11/13/2024 16:34:58 04/07/20 24 04/07/2024 CBC W Auto Diffe renti al panel - Blood basophils [#/volume] in blood 0.04 text: 0.00 - 0.20 x10'3/ uL Not Available Not Available 11/13/2024 16:34:58 04/07/20 24 04/07/2024 CBC W Auto Diffe renti al panel - Blood immature granulocytes [#/volume] in blood 0.12 text: 0.00 - 0.03 x10'3/ uL high Not Available Not Available 11/13/2024 16:34:58 04/07/20 24 04/07/2024 CBC W Auto Diffe renti al panel - Blood nucleated erythrocytes [#/volume] in blood 0 text: 0.00 - 0.01 x10'3/ uL Not Available Not Available 11/13/2024 16:34:58 04/07/20 24 04/07/2024 CBC W Auto Diffe renti al panel - Blood interpretati on and review of laboratory results Abnorm al Not Available Not Available 16:34:58 04/07/20 24 04/07/2024 Drugs ident ified in Urine by Sandra maher cannabinoids [presence] in urine by screen method NEGATI VE text: negati ve Not Available Not Available 11/13/2024 16:34:58 04/07/20 24 04/07/2024 Drugs ident ified in Urine by Sandra maher phencyclidin e [presence] in urine NEGATI VE text: negati ve Not Available Not Available 11/13/2024 16:34:58 04/07/20 24 04/07/2024 Drugs ident ified in Urine by Sandra maher cocaine [presence] in urine by screen method NEGATI VE text: negati ve Not Available Not Available 11/13/2024 16:34:58 04/07/20 24 04/07/2024 Drugs ident ified in Urine by Sandra maher methamphetam ine [presence] in urine NEGATI VE text: negati ve Not Available Not Available 11/13/2024 16:34:58 04/07/20 24 04/07/2024 Drugs ident ified in Urine by Sandra maher opiates [presence] in urine NEGATI VE text: negati ve Not Available Not Available 11/13/2024 16:34:58 04/07/20 24 04/07/2024 Drugs ident ified in Urine by Sandra maher amphetamine [presence] in urine by screen method NEGATI VE text: negati ve Not Available Not Available 11/13/2024 16:34:58 04/07/20 24 04/07/2024 Drugs ident ified in Urine by Sandra maher benzodiazepi maureen [presence] in urine by screen method POSITI VE text: negati ve abnormal Not Available Not Available 11/13/2024 16:34:58 04/07/20 24 04/07/2024 Drugs ident ified in Urine by Sandra maher tricyclic antidepressa nts [presence] in urine NEGATI VE text: negati ve Not Available Not Available 11/13/2024 16:34:58 04/07/20 24 04/07/2024 Drugs ident ified in Urine by Sandra maher methadone [presence] in urine NEGATI VE text: negati ve Not Available Not Available 11/13/2024 16:34:58 04/07/20 24 04/07/2024 Drugs ident ified in Urine by Sandra maher barbiturate screen present [identifier] in urine NEGATI VE text: negati ve Not Available Not Available 11/13/2024 16:34:58 04/07/20 24 04/07/2024 Drugs ident ified in Urine by Sandra maher oxycodone [presence] in urine NEGATI VE text: negati ve Not Available Not Available 11/13/2024 16:34:58 04/07/20 24 04/07/2024 Drugs ident ified in Urine by Sandra maher service comment THIS TEST METHOD OLOGY IS DESIGN ED AND OFFERE D A RAPID TURNAR OUND, QUALIT ATIVE SCREEN ING PROCED URE TO AID IN THE IMMEDI ATE MEDICA L ASSESS MENT OF PATIEN TS SUSPEC HALEY OF SUBSTA NCE ABUSE. CLINI L[facility]X CONSI DERAT ION AND PROFE TREVAON AL JUDGM ENT MUST BE APPLI ED TO ANY DRUG OF ABUSE TEST RESUL T, BOTH POSIT JORGE ALBERTO AND NEGAT JORGE ALBERTO. CONFI RMATO RY QUANT ITATI VE RESUL TS ARE AVAIL ABLE THROU GH [facility] . Not Available Not Available 11/13/2024 16:34:58 04/07/20 24 04/07/2024 Drugs ident ified in Urine by Sandra maher interpretati on and review of laboratory results Abnorm al Not Available Not Available 16:34:58 04/07/20 24 04/07/2024 Urina lysis compl ete panel - Urine color of urine YELLOW Not Available Not Available 11/04 16:34:58 04/07/20 24 04/07/2024 Urina lysis compl ete panel - Urine clarity of urine CLEAR Not Available Not Available 11/04 16:34:58 04/07/20 24 04/07/2024 Urina lysis compl ete panel - Urine specific gravity of urine 1.03 low: 1high: 1.025 high EQUAL TO OR GREAT ER THAN Not Available Not Available 11/13/2024 16:34:58 04/07/20 24 04/07/2024 Urina lysis compl ete panel - Urine pH of urine 5.5 low: 5high: 8 Not Available Not Available 11/13/2024 16:34:58 04/07/20 24 04/07/2024 Urina lysis compl ete panel - Urine leukocyte esterase [presence] in urine by test strip NEGATI VE text: negati ve Not Available Not Available 11/13/2024 16:34:58 04/07/20 24 04/07/2024 Urina lysis compl ete panel - Urine nitrite [presence] in urine by test strip NEGATI VE text: negati ve Not Available Not Available 11/13/2024 16:34:58 04/07/20 24 04/07/2024 Urina lysis compl ete panel - Urine protein [presence] in urine by automated test strip TRACE text: negati ve abnormal Not Available Not Available 11/13/2024 16:34:58 04/07/20 24 04/07/2024 Urina lysis compl ete panel - Urine glucose [presence] in urine by automated test strip NEGATI VE text: negati ve Not Available Not Available 11/13/2024 16:34:58 04/07/20 24 04/07/2024 Urina lysis compl ete panel - Urine ketones [presence] in urine by automated test strip NEGATI VE text: negati ve Not Available Not Available 11/13/2024 16:34:58 04/07/20 24 04/07/2024 Urina lysis compl ete panel - Urine urobilinogen [units/volum e] in urine by test strip 1 text: <1.0 eu/dL high Not Available Not Available 11/13/2024 16:34:58 04/07/20 24 04/07/2024 Urina lysis compl ete panel - Urine bilirubin.to dora [presence] in urine by automated test strip NEGATI VE text: negati ve Not Available Not Available 11/13/2024 16:34:58 04/07/20 24 04/07/2024 Urina lysis compl ete panel - Urine erythrocytes [#/volume] in urine by automated test strip NEGATI VE text: negati ve Not Available Not Available 11/13/2024 16:34:58 04/07/20 24 04/07/2024 Urina lysis compl ete panel - Urine leukocytes [#/area] in urine sediment by microscopy high power field 0-5 text: 0 - 5 /hpf Not Available Not Available 11/13/2024 16:34:58 04/07/20 24 04/07/2024 Urina lysis compl ete panel - Urine erythrocytes [#/area] in urine sediment by microscopy high power field 0-5 text: 0 - 5 /hpf Not Available Not Available 11/13/2024 16:34:58 04/07/20 24 04/07/2024 Urina lysis compl ete panel - Urine epithelial casts [#/area] in urine sediment by microscopy low power field FEW text: /lpf Not Available Not Available 11/13/2024 16:34:58 04/07/20 24 04/07/2024 Urina lysis compl ete panel - Urine bacteria [#/area] in urine sediment by microscopy high power field 2+ text: /hpf Not Available Not Available 11/13/2024 16:34:58 04/07/20 24 04/07/2024 Urina lysis compl ete panel - Urine mucus [presence] in urine sediment by light microscopy PRESEN T Not Available Not Available 16:34:58 04/07/20 24 04/07/2024 Urina lysis compl ete panel - Urine interpretati on and review of laboratory results Abnorm al Not Available Not Available 16:34:58 04/07/20 24 04/09/2024 Patho logy study pathology study [facility] [address] [place] [address] Teleph one: , extens ion [id number] Pathol ogy Report Surgic al Pathol ogy Report Name: LEILANI Estrada KRISHNA Karla en #: [id number] Age: [id number] (Age: 29) Locati on: [facility] F Sex: F Proced ure Date: Hospit al #: [id number] Date Receiv ed: Date Report ed: Provid er: BRADLEY Atkinson MD Source : [facility] Histor y: 37 weeks 0-day gestat ion, G8, P3. Vagina l delive ry of female and pink, 5 pounds 12 ounces , Apgars 8/9. Subcho rionic hemato ma, possib le limite d prenat al care. Gross Descri ption: Receiv ed in formal in, labele d with a patien t label and not furthe r design ated, is a 17.5 x 15.5 cm placen ta that ranges from 1.5-3. 5 cm in thickn ess. The attach ed membra maureen are gliste manjeet to dusky, semitr ansluc ent to thicke julia, lee to red-br own, and appear partia lly overla id by friabl e, dusky red-br own soft tissue . The membra maureen insert in circum margin ate fashio n over approx imatel y 60% of the periph emily. Maximu m extrac horial is measur es 2.5 cm. The membra ne site of ruptur e is less than 10 cm. A 22.5 cm tortuo us, trivas cular umbili lennox cord insert s in furcat e fashio n 1.7 cm from the neares t placen dora margin , displa ys diffus e lee-ye llow discol oratio n, and averag es 0.7 cm in diamet er. The placen dora disc weighs 400 g. The surfac e is gliste manjeet, lee-bl ue, and appear s fairly well-v ascula rized. Diffus e mild to modera te subcho rionic fibrin deposi tion is identi fied. The matern al surfac e is compos ed of intact , spongy lee-re d cotyle dons. Sectio manjeet reveal s a 1.4 cm lamina haley yellow -red intrap arench ymal lesion . Separa tely receiv ed are friabl e, soft, dusky, red-br own to hemorr hagic tissue fragme nts that aggreg ate 8.5 x 7.5 x 3.0 cm. Sectio ns are submit haley as follow s: 1 membra maureen 2 umbili lennox cord 34 parenc hyma 5 repres entati ve separa tely receiv ed tissue . Gross examin ation (when applic able) was perfor med at [facility], [address] [id number]. This case was interp reted and signed out at [facility], [address] , [place] [address]. FINAL DIAGNO SIS: Placen ta, extrac tion: 400 gram, third trimes ter, placen ta with a normal trivas cular umbili lennox cord, modera te subcho rionic fibrin deposi tion, and focal infarc t. Elec tronic ally Signed Out MARITZA PRIDE MD Not Available Not Available 16:34:58 04/08/20 24 04/12/2024 Refer ral lab test panel test name: DRUG ABUSE PANEL Not Available Not Available 16:34:59 04/08/20 24 04/12/2024 Refer ral lab test panel specimen type SODIUM FLOURI DE Not Available Not Available 16:34:59 04/08/20 24 04/12/2024 Refer ral lab test panel referral lab test results Flexit est 1 Flexi test 1 Scree n Marij uana negat jorge alberto Amphe tamin e Scree n, Serum negat jorge alberto Nataliia turat es negat jorge alberto Benzo diaze pines negat jorge alberto Cocai ne Metab olite s negat jorge alberto Opiat es negat jorge alberto PCP (Phen cycli dine) negat jorge alberto Metha done negat jorge alberto Confi rmati on Comme nt SEE NOTE The submi tted serum speci men was teste d at the immun oassa y scree n cutof fs liste d below and, if POSIT JORGE ALBERTO, were confi rmed by Chrom atogr aphy/ Mass Spect romet ry at the liste d confi rmato ry test cutof fs. Cutof fs units are ng/mL . Drug Class / Initi al Test Confi rmato ry Drug Level Test Level Amphe tamin es 100 Amphe tamin e 50 Metha mphet amine 50 MDMA (Ecs tacy ) 50 MDA 50 Nataliia turat es 100 Amoba rbita l 100 Butab arbit al 100 Butal bital 100 Pento nataliia dora 100 Pheno nataliia dora 100 Secob arbit al 100 Benzo diaze pines 100 Alpra zolam 10 Oxaze minh 50 Loraz epam 50 Desal kylfl uraze minh 50 Nordi azepa m 50 Cocai ne metab olite s 100 Cocai ne 20 Benzo ylecg onine 20 Cocae thyle ne 20 Marij uana metab olite s 30 THC 1 Carbo xy-TH C 5 Metha done 25 50 Opiat es 100 Morph ine 50 Codei ne 50 Decatur codon e 50 Decatur morph one 50 Oxyco done 50 Phenc yclid ine 10 5 This test was devel oped and its catherine tical perfo rmanc e maryuri cteri stics have been deter mined by [facility], [place], [place]. It has not been clear ed or appro rich by the FDA. This assay has been valid ated pursu ant to the CLIA regul ation s and is used for clini lennox purpo ses. Test Perfo rmed by [facility] alexandra, [facility], [address] [address] [employer] , [place], [place] Rosa Rehman M.D., Ph.D. , [facility] at[facility] es [phone], CLIA [id number] Not Available Not Available 11/13/2024 16:34:59 04/08/20 24 04/08/2024 CBC W Auto Diffe renti al panel - Blood leukocytes [#/volume] in blood by automated count 17.51 text: 4.00 - 10.80 x10'3/ uL high Not Available Not Available 11/13/2024 16:34:59 04/08/20 24 04/08/2024 CBC W Auto Diffe renti al panel - Blood erythrocytes [#/volume] in blood by automated count 3.92 text: 4.10 - 5.40 x10'6/ uL low Not Available Not Available 11/13/2024 16:34:59 04/08/20 24 04/08/2024 CBC W Auto Diffe renti al panel - Blood hemoglobin [mass/volume ] in blood 9.6 text: 12.0 - 16.0 g/dL low Not Available Not Available 11/13/2024 16:34:59 04/08/20 24 04/08/2024 CBC W Auto Diffe renti al panel - Blood hematocrit [volume fraction] of blood by calculation 31.2 % low: 36%hig h: 47% low Not Available Not Available 11/13/2024 16:34:59 04/08/20 24 04/08/2024 CBC W Auto Diffe renti al panel - Blood MCV [entitic mean volume] in red blood cells 79.6 text: 78.0 - 100.0 fL Not Available Not Available 11/13/2024 16:34:59 04/08/20 24 04/08/2024 CBC W Auto Diffe renti al panel - Blood MCH [entitic mass] 24.5 pg low: 27pghi gh: 31pg low Not Available Not Available 11/13/2024 16:34:59 04/08/20 24 04/08/2024 CBC W Auto Diffe renti al panel - Blood MCHC [entitic mass/volume] in red blood cells 30.8 text: 33.0 - 36.0 g/dL low Not Available Not Available 11/13/2024 16:34:59 04/08/20 24 04/08/2024 CBC W Auto Diffe renti al panel - Blood RDW 15.6 % low: 11.5%h igh: 14.5% high Not Available Not Available 11/13/2024 16:34:59 04/08/20 24 04/08/2024 CBC W Auto Diffe renti al panel - Blood platelets [#/volume] in blood 198 text: 150 - 350 x10'3/ uL Not Available Not Available 11/13/2024 16:34:59 04/08/20 24 04/08/2024 CBC W Auto Diffe renti al panel - Blood platelet [entitic mean volume] in blood 12 text: 7.4 - 10.4 fL high Not Available Not Available 11/13/2024 16:34:59 04/08/20 24 04/08/2024 CBC W Auto Diffe renti al panel - Blood service comment NORMAL REFERE NCE RANGE NOT ESTABL ISHED FOR THE PROPOR TIONAL LEUKOC YTE DIFFER ENTIAL . Not Available Not Available 16:34:59 04/08/20 24 04/08/2024 CBC W Auto Diffe renti al panel - Blood neutrophils/ leukocytes in blood by automated count 79.6 % Not Available Not Available 11/04 16:34:59 04/08/20 24 04/08/2024 CBC W Auto Diffe renti al panel - Blood lymphocytes/ leukocytes in blood by automated count 14.6 % Not Available Not Available 11/04 16:34:59 04/08/20 24 04/08/2024 CBC W Auto Diffe renti al panel - Blood monocytes/le ukocytes in blood by automated count 4.2 % Not Available Not Available 11/04 16:34:59 04/08/20 24 04/08/2024 CBC W Auto Diffe renti al panel - Blood eosinophils/ leukocytes in blood by automated count 0.7 % Not Available Not Available 11/04 16:34:59 04/08/20 24 04/08/2024 CBC W Auto Diffe renti al panel - Blood basophils/le ukocytes in blood by automated count 0.3 % Not Available Not Available 11/04 16:34:59 04/08/20 24 04/08/2024 CBC W Auto Diffe renti al panel - Blood immature granulocytes /leukocytes in blood by automated count 0.6 % Not Available Not Available 11/04 16:34:59 04/08/20 24 04/08/2024 CBC W Auto Diffe renti al panel - Blood nucleated erythrocytes /leukocytes [ratio] in blood 0 % Not Available Not Available 11/04 16:34:59 04/08/20 24 04/08/2024 CBC W Auto Diffe renti al panel - Blood neutrophils [#/volume] in blood 13.95 text: 1.60 - 8.30 x10'3/ uL high Not Available Not Available 11/13/2024 16:34:59 04/08/20 24 04/08/2024 CBC W Auto Diffe renti al panel - Blood lymphocytes [#/volume] in blood 2.55 text: 0.80 - 4.70 x10'3/ uL Not Available Not Available 11/13/2024 16:34:59 04/08/20 24 04/08/2024 CBC W Auto Diffe renti al panel - Blood monocytes [#/volume] in blood 0.73 text: 0.00 - 1.50 x10'3/ uL Not Available Not Available 11/13/2024 16:34:59 04/08/20 24 04/08/2024 CBC W Auto Diffe renti al panel - Blood eosinophils [#/volume] in blood 0.13 text: 0.00 - 0.40 x10'3/ uL Not Available Not Available 11/13/2024 16:34:59 04/08/20 24 04/08/2024 CBC W Auto Diffe renti al panel - Blood basophils [#/volume] in blood 0.05 text: 0.00 - 0.20 x10'3/ uL Not Available Not Available 11/13/2024 16:34:59 04/08/20 24 04/08/2024 CBC W Auto Diffe renti al panel - Blood immature granulocytes [#/volume] in blood 0.1 text: 0.00 - 0.03 x10'3/ uL high Not Available Not Available 11/13/2024 16:34:59 04/08/20 24 04/08/2024 CBC W Auto Diffe renti al panel - Blood nucleated erythrocytes [#/volume] in blood 0 text: 0.00 - 0.01 x10'3/ uL Not Available Not Available 11/13/2024 16:34:59 04/08/20 24 04/08/2024 CBC W Auto Diffe renti al panel - Blood interpretati on and review of laboratory results Abnorm al Not Available Not Available 16:34:59 01/15/20 24 01/15/2024 US, obste tric, mater nal evalu ation + anato my No observ ation record ed. EMILY [facility] [address] [address], [place], [address], 01/15/2024 17:07:00 01/22/20 24 01/21/2024 US, obste tric, 2nd trime ster No observ ation record ed. [email or web address] [facility] [address], [place], [address], 01/22/2024 14:17:22 Result Notes None recorded. Problems Name Problem SNOMED Code Status Onset Date Resolution Date Notes Provider Name and Address Organization Details Recorded Time Chronic back pain 031265646 Active Lucie Middleton [place], [place] - [facility] 1 12:16:12 Acute follicul itis 577138608 Active Lucie Midd[place] [facility] 1 12:16:12 Pityrias is versicol or 90855057 Active Lucie Middleton [place] [facility] 1 12:16:12 Tobacco user 458853988 Completed encourag e cessatio n Alison Stanley [place], [place] [facility] 9 10:19:24 Infectio n by Trichomo león [id number] Completed Treated on 05/17/20 Janett Hebblethw aite [place] [facility] 3 15:25:13 Anemia 864263754 Completed Janett Hebblethw aite [place] [facility] 3 15:25:13 Herpesvi jacqueline infectio n 98936972 Completed Suppress ion therapy at 36 weeks Janett Hebblethw aite [place] [facility] 3 15:25:13 History of recurren t miscarri age - not delivere d 841894728 Completed co-manag e with MFM Janett Lewislethw aite [place] [facility] 3 15:25:12 Placenta l abruptio n [id number] Completed chronic placenta l abruptio n noted, pt left hospital AMA. Panchito Herman MD Attn: Quinton arana,[address] [place], [address], [place] [facility] 4 14:09:44 Vaccinat ion declined [id number] Completed Tdap declined Panchito Herman MD Attn: Qu[address]ana,[address] [place], [address], [place] [facility] 4 15:35:40 Acute bronchit is 51215782 Active Lucie Middelton [place] [facility] 1 12:16:12 Pregnanc y 21728817 Completed 201603/22/2017 Jennifer Adler MD Attn: Quinton arana,[address] [facility], [place], [address], [place] [facility] 5 00:28:55 Pregnanc y 21152347 Completed 201807/25/2018 Jennifer Adler MD Attn: Quinton arana,[address] [facility], [place], [address], [place] [facility] 5 00:28:55 Miscarri age 72329087 Active 2018 x5 Panchito Herman MD Attn: Quinton arana,[address] [facility], [place], [address], [place] [facility] 4 17:54:19 Miscarri age 10152047 Completed 2018 x5 Panchito Herman MD Attn: Quinton arana,[address] [facility], [place], [address], [place] [facility] 4 17:54:19 Pregnanc y 09983490 Completed 201905/24/2024 Jennifer Adler MD Attn: Quinton arana,[address] [facility], [place], [address], [place] [facility] 5 00:28:54 Problem Notes None recorded. Procedures Surgical History Date Name Laterality Status Provider Name and Address Organization Details Recorded Time 4 Date of Last Pap Smear completed ARSALAN [place] [facility] 11/12/2023 16:58:37 procedure on gallbladder completed Sari [place] [facility] 12/20/2022 15:52:11 Dilation and Curettage completed Tonya [place]ennison [place] [facility] 06/05/2014 17:07:52 Imaging Results None recorded. Procedure Notes None recorded. Medical Equipment None Reported. Allergies Allergen ID Allergen Name Allergen Category Reaction Reaction Severity Criticality Documentation Date Start Date Code Code System Note Provider Name and Address Organization Details Recorded Time 305604 codeine medicatio n Not available Not available Not available 10/01/2019 9090 RxNorm Lucie Middleton [place], [place] [facility] 0 11:43:05 Product containin g penicilli n (product) medicatio n Not available Not available Not available 06/05/2014 72177 8001 SNOMED diffi culty breat gracy Panchito Herman MD Attn: Quinton arana,[address] [place], [address], [place] [facility] 9 12:01:47 16021 naproxen medicatio n bradycard ia severe Not available 06/05/2014 7258 RxNorm Tonya Dennison [place], [place] [facility] 5 17:07:52 88673 oxycodone medicatio n bradycard ia severe Not available 06/05/2014 7804 RxNorm Tonya Dennison MA null, [place] - [facility] 5 17:07:52 62442 ibuprofen medicatio n Not available Not available Not available 06/05/2014 5640 RxNorm heart flutt ers Panchito Herman MD Attn: Quinton arana,[address] [facility], [place], [address], [place] [facility] 9 12:01:28 928471 tramadol medicatio n palpitati ons Not available Not available 03/04/20252015 47676 RxNorm Not Available emily - External Data Service - prod 17:37:51 398240 amoxicill in medicatio n palpitati ons Not available low 03/04/20252023 723 RxNorm Not Available emily - External Data Service - prod 17:37:56 Medications Name Sig Start Date Stop Date Status Note LastModified by Organization Details LastModified Time compounded medication Apply 10ml to mouth/thr oat QID PRN 2024 active Not Available Not Available Not Avai lable Prescriptio n - Prior Authorizati on Request APPLY TOPICALLY TO AFFECTED AREA ONCE WEEKLY 02/10 completed Not Available Not Available Not Available doxycycline hyclate 100 mg capsule 09/30 completed Not Available Not Available Not Available naproxen 375 mg tablet 02/10 completed Not Available Not Available Not Available clindamycin HCl 300 mg capsule TAKE 1 CAPSULE BY MOUTH EVERY 8 HOURS FOR 10 DAYS 12/20 completed Not Available Not Available Not Available azithromyci n 250 mg tablet 03/07 completed Not Available Not Available Not Available tizanidine 4 mg tablet 02/10 completed Not Available Not Available Not Available hydrocodone 5 mg-acetamin ophen 325 mg tablet TK 1 T PO Q 6 H PRF MODERATE OR MORE SEVERE PAIN 04/15 completed Not Available Not Available Not Available promethazin e 12.5 mg tablet Take 1 tablet every 4-6 hours by oral route as needed. 12/20 completed Not Available Not Available Not Available prednisone 20 mg tablet 07/16 completed Not Available Not Available Not Available metronidazo le 500 mg tablet Take 1 tablet twice a day by oral route as directed for 7 days. 12/20 completed Not Available Not Available Not Available acyclovir 400 mg tablet TAKE 1 TABLET BY MOUTH EVERY 8 HOURS 12/20 completed Not Available Not Available Not Available sulfamethox azole 800 mg-trimetho prim 160 mg tablet Take 1 tablet every 12 hours by oral route for 10 days. 11/16 completed Not Available Not Available Not Available tramadol 50 mg tablet 02/10 completed Not Available Not Available Not Available Vitamin tablet Take 1 tablet every day by oral route as directed for 30 days. 09/30 completed Not Available Not Available Not Available methocarbam ol 750 mg tablet 02/10 completed Not Available Not Available Not Available benzonatate 100 mg capsule Take 1 capsule 3 times a day by oral route for 30 days. 02/10 completed Not Available Not Available Not Available cephalexin 500 mg capsule TAKE 1 CAPSULE BY MOUTH THREE TIMES DAILY FOR 10 DAYS 08/20 completed Not Available Not Available Not Available ferrous sulfate 325 mg (65 mg iron) tablet Take 1 tablet 3 times a day by oral route. 12/20 completed Not Available Not Available Not Available Cipro 500 mg tablet Take 1 tablet every 12 hours by oral route for 10 days. 01/30 completed Not Available Not Available Not Available docusate sodium 100 mg capsule Take 1 capsule twice a day by oral route as needed. 12/20 completed Not Available Not Available Not Available mupirocin 2 % topical ointment 07/16 completed Not Available Not Available Not Available albuterol sulfate HFA 90 mcg/actuati on aerosol inhaler Inhale 2 puffs every 4 hours by inhalatio n route as needed for 30 days. 07/16 completed Not Available Not Available Not Available azithromyci n 500 mg tablet Take 2 tablets every day by oral route. 04/15 completed Not Available Not Available Not Available nitrofurant oin monohydrate /macrocryst als 100 mg capsule 07/16 completed Not Available Not Available Not Available selenium sulfide 2.25 % shampoo 02/10 completed Not Available Not Available Not Available chlorhexidi ne gluconate 0.12 % mouthwash SWISH AND SPIT 15 ML BY MOUTH TWICE DAILY 2022 active Not Available Not Available Not Avai lable 10/30 completed Not Available Not Available Not Available [facility] 1 60 mg iron-1 mg tablet 02/10 completed Not Available Not Available Not Available 28 mg iron-800 mcg tablet TAKE 1 TABLET BY MOUTH EVERY DAY 12/20 completed Not Available Not Available Not Available Vitamins Plus Low Iron 27 mg iron-1 mg tablet 09/30 completed Not Available Not Available Not Available 28 mg-800 mcg tablet Take 1 tablet every day by oral route for 30 days. 12/20 completed Not Available Not Available Not Available Vitals Date Recorded Body height Oxygen saturation Oxygen saturation in Arterial blood by Pulse oximetry Heart rate Body mass index (BMI) Body weight Systolic And Diastolic Provider Name and Address Organization Details Last Updated DateTime 5 175.26 cm 96 % 96 % 107 /min 34.9 kg/m2 945270. 8 g 120/90 mm[Hg] Jaz He [place] [facility] 15:19:42 Date Recorded Body height Body mass index (BMI) Body weight Heart rate Systolic And Diastolic Systolic And Diastolic Provider Name and Address Organization Details Last Updated DateTime 4 175.26 cm 34.3 kg/m2 638036. 72 g 86 /min 139/81 mm[Hg] 128/78 mm[Hg] Thelma atkinson [place] [facility] 13:30:52 Date Recorded Body height Body mass index (BMI) Body weight Systolic And Diastolic Provider Name and Address Organization Details Last Updated DateTime 02/26/2024 175.26 cm 34.6 kg/m2 565185.61 g 134/82 mm[Hg] CariARSALAN Disla [facility] 02/26/2024 14:45:15 Date Recorded Body height Body mass index (BMI) Body weight Heart rate Systolic And Diastolic Provider Name and Address Organization Details Last Updated DateTime 03/18/2024 175.26 cm 35 kg/m2 358926.8 2 g 96 /min 128/80 mm[Hg] Thelma Guy MA [facility] 03/18/2024 14:51:05 Date Recorded Body height Body mass index (BMI) Body weight Heart rate Systolic And Diastolic Provider Name and Address Organization Details Last Updated DateTime 03/31/2024 175.26 cm 35.4 kg/m2 237380.1 7 g 80 /min 131/85 mm[Hg] Thelma Guy MA [facility] 03/31/2024 16:41:38 Social History Question Answer Notes LastModified by Organizat ion Details LastModified Time Tobacco Smoking Status Current Every Day Smoker Sari Neely MA [facility] 12/20/2022 15:50:24 Are You Blind Or Do You Have Difficulty Seeing? No Information n ot available 12/20/2022 What Is Your Level Of Caffeine Consumption? Moderate Information not available 08/21/2023 In The 14 Days Before Symptom Onset, Have You Had Close Contact With A Laboratory-confirm ed COVID-19 While That Case Was Ill? No Information n ot available 12/20/2022 In The 14 Days Before Symptom Onset, Have You Had Close Contact With A Person Who Is Under Investigation For COVID-19 While That Person Was Ill? No Information not available 12/20/2022 Have You Been To An Area Known To Be High Risk For COVID-19? No Information not available 12/20/2022 Are You Deaf Or Do You Have Serious Difficulty Hearing? No Information not available 12/20/2022 What Type Of Diet Are You Following? REGULAR Information n ot available 12/20/2022 Are There Any Guns Present In Your Home? No Information not available 12/20/2022 What Was The Date Of Your Most Recent Tobacco Screening? 10/30/2024 Information not available 10/30/2024 How Many Children Do You Have? 3 Information not available 12/20/2022 What Is Your Relationship Status? Single Information not available 12/20/2022 Do You Use Your Seat Belt Or Car Seat Routinely? Yes Information not available 12/20/2022 Are You Sexually Active? Yes Information not available 12/20/2022 Do You Have Smoke And Carbon Monoxide Detectors In Your Home? Yes Information not available 12/20/2022 Are You Passively Exposed To Smoke? No Information no t available 12/20/2022 How Much Tobacco Do You Smoke? 0.25 PPD [email or web address] Information not available 10/18/2023 Do You Use Sunscreen Routinely? Yes Information not available 12/20/2022 Has Tobacco Cessation Counseling Been Provided? Yes Information not available 12/20/2022 On What Date Was Tobacco Cessation Counseling Provided? 10/30/2024 Information not available 10/30/2024 How Many Years Have You Smoked Tobacco? 4 [email or web address] Information not available 06/05/2014 Sex: Female Functional Status Question Answer Note LastModified by Organizat ion Details LastModified Time Do you use any illicit or recreational drugs? No Information not available 12/20/2022 Do you or have you ever used any other forms of tobacco or nicotine? No Information not available 12/20/2022 What is your level of alcohol consumption? Occasional Information not available 12/20/2022 Are you currently employed? Yes Information not available 12/20/2022 Are you able to care for yourself independently? Yes Information not available 12/20/2022 What is your occupation? [employer] Information not available 08/21/2023 What is your exercise level? None Information not available 08/21/2023 Mental Status Question Answer Note LastModified by Organization D etails LastModified Time Do you feel stressed (tense, restless, nervous, or anxious, or unable to sleep at night)? [id number] Information not available 12/20/2022 Family History Relationship Description Onset Age of this Age Resolved Age Notes LastModified by Organization Details LastModified Time Mother Harmful pattern of use of alcohol [email or web address] Not available 12/2015 15:08:43 Mother Carcinoma in situ of breast [email or web address] Not available 12/2015 15:08:43 Mother Depressive disorder [email or web address] Not available 12/2015 15:08:43 Mother Malignant neoplasm of ovary [email or web address] Not available 12/2015 15:08:43 Mother Malignant neoplasm of breast [email or web address] Not available 12/05 15:48:45 Father Asthma [email or web address] Not availabl e 08/13/2015 15:08:43 Brother Attention deficit hyperactivit y disorder [email or web address] Not available 12/2015 15:08:43 Sister Attention deficit hyperactivit y disorder [email or web address] Not available 12/2015 15:08:43 Sister Malignant neoplasm of ovary [email or web address] Not available 12/2015 15:08:43 Maternal Grandmother Malignant neoplasm of breast [email or web address] Not available 12/05 15:48:45 Medical History Condition Response Other N High Blood Pressure N Breast Cancer N Thyroid Problems N Kidney or Bladder Problems N GI Problems N Depression N Blood Clots N Lung Disease N Acne N Breast Problem N Eating Disorder N Anemia Y Anesthesia Complications N Headaches/Migraines N Anxiety Disorder N Diabetes N Ovarian Cancer N Muscle, Joint, or Bone Problems N Blood Transfusions N Seizures/Epilepsy N Polyps N Infertility N Acid Reflux (GERD) N Cancer N Abuse/Domestic Violence N Asthma N Allergies Y Endometriosis N High Cholesterol N Hepatitis N Liver Disease N Heart Disease N Pre-Eclampsia N Osteoporosis N Gynecological History Statement/Question Response Abnormal Pap N Date of LMP 10/20/2024 On BCP's at Conception? N STIs/STDs N HPV Vaccine Y Duration of Flow (days) 4 Current Control Method Sexually Active? Y Menses Monthly Y Date of Last Pap Smear 10/18/2023 Sexual Problems? N LMP Definite Obstetrics History GPAL:G 9 P 3 0 5 3 Type Value Full Term 3 Spontaneous 5 Living 3 Total 9 Immunizations Vaccine Type Date Status Note Provider Name and Address Organization Details Recorded Time Hep B, adolescent or pediatric 02/25/19 93 completed Not Available [facility] 10/30/2024 15:11:49 Hep B, adolescent or pediatric 04/22/19 93 completed Not Available [facility] 10/30/2024 15:11:49 Hib, unspecified formulation 05/12/18 94 completed Not Available [facility] 10/30/2024 15:11:49 DTP 05/12/18 94 completed Not Available [facility] 10/30/2024 15:11:49 OPV, trivalent 05/12/18 94 completed Not Available [facility] 10/30/2024 15:11:49 Hib, unspecified formulation 09/09/18 94 completed Not Available [facility] 10/30/2024 15:11:49 OPV, trivalent 09/09/18 94 completed Not Available [facility] 10/30/2024 15:11:49 DTP 09/09/18 94 completed Not Available [facility] 10/30/2024 15:11:49 Hep B, adolescent or pediatric 01/19/19 94 completed Not Available [facility] 10/30/2024 15:11:49 DTP-Hib 01/19/19 94 completed Not Available [facility] 10/30/2024 15:11:49 OPV, trivalent 01/19/19 94 completed Not Available [facility] 10/30/2024 15:11:49 DTP-Hib 04/06/19 94 completed Not Available [facility] 10/30/2024 15:11:49 MMR 04/06/19 94 completed Not Available [facility] 10/30/2024 15:11:49 MMR 01/17/19 99 completed Not Available [facility] 10/30/2024 15:11:49 DTP 01/17/19 99 completed Not Available [facility] 10/30/2024 15:11:49 OPV, trivalent 01/17/19 99 completed Not Available [facility] 10/30/2024 15:11:49 influenza, unspecified formulation 04/15/20 03 completed Not Available [facility] 10/30/2024 15:11:49 Tdap 05/17/19 06 completed Not Available [facility] 10/30/2024 15:11:49 Hep A, ped/adol, 2 dose 01/05/20 06 completed Not Available [facility] 10/30/2024 15:11:49 Hep A, ped/adol, 2 dose 12/19/19 07 completed Not Available [facility] 10/30/2024 15:11:49 HPV, quadrivalent 12/19/19 07 completed Not Available [facility] 10/30/2024 15:11:49 HPV, quadrivalent 03/14/20 07 completed Not Available [facility] 10/30/2024 15:11:49 influenza, whole 03/14/20 07 completed Not Available [facility] 10/30/2024 15:11:49 HPV, quadrivalent 12/19/19 08 completed Not Available [facility] 10/30/2024 15:11:49 meningococcal MCV4P 12/19/19 08 completed Not Available [facility] 10/30/2024 15:11:49 influenza, unspecified formulation 06/04/19 09 completed Not Available [facility] 10/30/2024 15:11:49 influenza, unspecified formulation 03/01/20 10 completed Not Available [facility] 10/30/2024 15:11:49 meningococcal MCV4P 08/05/19 11 completed Not Available [facility] 10/30/2024 15:11:49 Influenza, split virus, trivalent, PF 01/20/20 11 completed Not Available [facility] 10/30/2024 15:11:49 Tdap 04/15/20 13 completed Not Available [facility] 10/30/2024 15:11:49 Tdap 01/06/20 17 completed Not Available [facility] 05/24/2019 02:49:07 Tdap 03/18/20 24 cancelled patient objection Panchito Herman MD Attn: Accounting,[address] [place], [address], [facility] 03/18/2024 15:34:55 Past Encounters Encounter ID Performer Location Encounter Start Date Encounter Closed Date Diagnosis/Indication Diagnosis SNOMED-CT Code Diagnosis ICD10 Code Diagnosis IMO Codes Diagnosis Note [id number] Sukh Cordova PA-C [facility] [address] [place] [address] 06/05/2014 16:53:37 06/08/2014 11:59:26 Chronic back pain 450362087 Acute folliculitis 445209884 Pityriasis versicolor 41478580 [id number] RAGHAV Michele [facility] [address] [place] [address] 08/13/2015 15:02:49 08/13/2015 15:32:41 Acute bronchitis 79897036 J20.9 [id number] MD Jayne Saucedo ([place] [address]) [address] [facility] [place] [address] 02/11/2016 11:50:43 02/11/2016 13:23:06 detection examination 95373429 Z32.00 [id number] MD Jayne Saucedo ([place] [address]) [address] [facility] [place] [place] [address] 07/14/2016 11:31:11 07/14/2016 12:26:07 Possible 814215216 Z32.00 test positive 083146610 Z32.01 Normal 2199997 2 Z34.90 [id number] MD Jayne Saucedo ([place] [address]) [address] [facility] [place] [place] [address] 08/04/2016 12:01:16 08/04/2016 13:36:40 Normal 33346779 Z34.83 [id number] MD Jayne Saucedo ([place] [address]) [address] [facility] [place] [place] [address] 08/25/2016 15:00:12 08/25/2016 17:51:51 Normal 25113462 Z34.83 Infection by Trichomonas 18459727 A59.9 [id number] MD Jayne Brady ([place] [address]) [address] [facility] [place] [place] [address] 09/05/2016 15:56:05 09/06/2016 09:00:54 Routine care 937285998 Z34.91 [id number] Mick Villalba MD [facility] [address] [place] [address] 09/08/2016 15:37:11 09/11/2016 12:22:32 Muscular headache 612835504 R51 [id number] MD Jayne Saucedo ([place] [address]) [address] [facility] [place] [place] [address] 10/03/2016 14:45:39 10/03/2016 15:10:34 Normal 26766881 Z34.83 Venereal d isease screening 411236644 Z11.3 [id number] MD Jayne Saucedo ([place] [address]) [address] [facility] [place] [place] [address] 10/31/2016 15:52:36 10/31/2016 17:12:16 Normal 35262832 Z34.83 Wheezing 80459165 R06.2 [id number] MD Jayne Saucedo ([place] [address]) [address] [facility] [place] [place] [address] 11/28/2016 15:24:36 11/28/2016 16:06:04 Normal 20991799 Z34.83 Large for gestation age fetus 168670427 O36.62X0 Venereal d isease screening 835250312 Z11.3 [id number] MD Jayne Saucedo ([place] [address]) [address] [facility] [place] [place] [address] 12/20/2016 11:27:03 12/20/2016 19:59:19 Normal 91170039 Z34.83 Infection by Trichomonas 21968419 A59.9 size does not accord with dates 862841719 O36.92X1 [id number] MD Jayne Saucedo ([place] [address]) [address] [facility] [place] [place] [address] 01/04/2017 15:59:01 01/04/2017 16:20:40 Normal 64012492 Z34.83 [id number] MD Jayne Brady ([place] [address]) [address] [facility] [place] [place] [address] 01/17/2017 16:26:02 01/17/2017 18:21:06 Routine care 297993707 Z34.91 Infection by Trichomonas 08125816 A59.9 [id number] MD Jayne Saucedo ([place] [address]) [address] [facility] [place] [place] [address] 01/31/2017 10:57:51 01/31/2017 13:52:50 Normal 94069158 Z34.83 Large for gestation age fetus 839542124 O36.62X0 Infection by Trichomonas 77879656 A59.9 [id number] MD Jayne Saucedo ([place] [address]) [address] [facility] [place] [place] [address] 02/21/2017 11:21:20 02/21/2017 12:30:23 Normal 24960472 Z34.93 Venereal d isease screening 639569374 Z11.3 [id number] MD Jayne Saucedo ([place] [address]) [address] [facility] [place] [place] [address] 02/28/2017 11:53:02 02/28/2017 12:23:39 Normal 50151227 Z34.93 [id number] MD Jayne Saucedo ([place] [address]) [address] [facility] [place] [place] [address] 03/07/2017 11:28:04 03/07/2017 11:55:35 Large for gestation age fetus 748756952 O36.63X1 Normal 3814463 2 Z34.93 [id number] MD Jayne Saucedo ([place] [address]) [address] [facility] [place] [place] [address] 03/14/2017 14:23:51 03/15/2017 12:06:02 Normal 35813986 Z34.93 [id number] MD Jayne Saucedo 14 OB [address] [facility] [place] [place] [address] 06/27/2018 13:45:58 06/27/2018 16:35:03 Threatened miscarriage 18957757 O20.0 Will repeat B-HCG and US. Patient is B positive. No rhogam is indicated. [id number] MD Jayne Brady 14 OB [address] [facility] [place] [place] [address] 07/16/2018 11:31:22 07/16/2018 13:01:08 Amenorrhea 65318143 N91.2 [id number] MD Jayne Brady 14 OB [address] [facility] [place] [address] 07/18/2018 11:03:35 07/19/2018 09:33:42 Threatened miscarriage 85588737 O20.0 [id number] MD Jayne Brady 14 OB [address] [facility] [place] [address] 07/24/2018 14:23:21 07/24/2018 14:38:15 Miscarriage 57144911 O03.9 [id number] Sukh Cordova PA-C [facility] [address] [place] [address] 10/01/2019 12:29:22 10/01/2019 14:55:43 Exposure to chlamydia 8767858403 104 Z20.2 [id number] MD Jayne Brady 14 OB [address] [facility] [place] [address] 04/15/2020 11:10:46 04/16/2020 12:29:37 Early stage of 876543515 Z34.80 Nausea and vomiting 1693 1999 R11.2 [id number] MD Jayne Brady 14 OB [address] [facility] [place] [address] 05/17/2020 15:15:43 05/18/2020 11:23:14 Routine care 496836371 Z34.91 Infection by Trichomonas 01712829 A59.9 Abnormal progesterone 13 1963594 R94.7 Recurrent miscarriage 10 0399082 N96 [id number] MD Jayne Brady 14 OB [address] [facility] [place] [place] [address] 07/05/2020 11:53:30 07/06/2020 10:55:23 Routine care 758901991 Z34.91 At increas ed risk of urinary tract infection 489543281 Z91.89 [id number] MD Jayne Brady 14 OB [address] [facility] [place] [address] 09/15/2020 10:15:29 09/16/2020 12:44:45 Routine care 820037358 Z34.91 At increas ed risk of urinary tract infection 879236437 Z91.89 [id number] MD Jayne Brady 14 OB [address] [facility] [place] [address] 11/12/2020 11:32:45 11/15/2020 05:28:39 Routine care 663802353 Z34.91 Herpesvirus infection 23 661601 A60.00 [id number] Mick Villalba MD [facility] [address] [place] [address] 12/20/2022 15:34:03 12/21/2022 10:28:30 Lightheadedness 707019320 R42 Iron defic iency anemia 95467490 D50.8 Overweight 037320365 E66 .3 History of malignant neoplasm of breast 533420731 Z85.3 Disorder o f teeth AND/OR supporting structures 429478546 K08.9 [id number] Sukh Cordova PA-C [facility] [address] [place] [address] 08/21/2023 15:09:02 08/23/2023 14:44:53 Viral gastroenteritis caused by [place]-like agent 30679829 A08.11 27113935 Z33.1 seek out NARCOTICS AND/OR VICE DETECTIVE [id number] MD Jayne Brady 14 OB [address] [facility] [place] [address] 10/18/2023 11:29:09 10/19/2023 10:00:56 Routine care 176639811 Z34.91 Past pregn shivam history of miscarriage 888885755 Z87.59 --D&C x 1 Depression screening 171 331668 Z13.31 [id number] MD Jayne Brady 14 OB [address] [facility] [place] [address] 11/12/2023 16:50:22 11/13/2023 11:09:01 Routine care 966243903 Z34.91 Z34.82 Bleeding f rom female genital tract during 8735935948 3523299 O46.92 Past pregn shivam history of miscarriage 361795017 Z87.59 --x5--D&C x 1 [id number] MD Jayne Brady 14 OB [address] [facility] [place] [address] 12/26/2023 14:29:42 12/28/2023 19:05:29 Routine care 738204811 Z34.91 Z34.82 Bleeding f rom female genital tract during 2326456441 4951569 O46.92 --Pt seen in MFM, subchorion ic hemorrhage decreasing in size Past pregn shivam history of miscarriage 296596619 Z87.59 --x5--D&C x 1 [id number] MD Jayne Brady 14 OB [address] [facility] [address] [place] [address] 01/24/2024 11:26:25 01/28/2024 16:00:52 Routine care 255465717 Z34.91 Z34.82 Subchorionic hematoma 60 6915878 O41.8X99 --continue co-managem ent with MFM [id number] MD Jayne Brady 14 OB [address] [facility] [place] [address] 02/12/2024 11:30:51 02/13/2024 09:52:43 Routine care 136833199 Z34.91 Z34.82 Subchorionic hematoma 60 9002762 O41.8X99 --continue co-managem ent with MFM Maternal t obacco use in 1339263563 23398 O99.333 Past pregn shivam history of miscarriage 828510627 Z87.59 --x5--D&C x 1 [id number] MD Jayne Brady [address] [place] [address] 02/26/2024 14:30:26 02/27/2024 10:51:40 Routine care 455664828 Z34.83 [id number] MD Jayne Brady [address] [place] [address] [place] [address] 03/18/2024 14:33:12 03/28/2024 19:50:40 Routine care 243015403 Z34.91 Z34.82 Subchorionic hematoma 60 2604040 O41.8X99 --continue co-managem ent with MFM--decre ased in size to 4mm--no further bleeding noted Past pregn shivam history of miscarriage 470500796 Z87.59 --x5--D&C x 1 Maternal t obacco use in 7865878202 93616 O99.333 Vaccine de clined by patient 8603140785 02 Z28.20 --Tdap declined [id number] Panchito Herman MD [place] 14 OB [address] [facility] [place] [address] 03/31/2024 16:25:24 04/07/2024 11:53:42 Routine care 956686601 Z34.91 Z34.82 Subchorionic hematoma 60 0370036 O41.8X99 --decrease d in size to 4mm--no further bleeding noted Past pregn shivam history of miscarriage 129999236 Z87.59 --x5--D&C x 1 Maternal t obacco use in 8868339023 75806 O99.513 [id number] Mick Villalba MD [facility] [address] [facility] [place] [address] 10/30/2024 15:10:42 11/03/2024 09:22:51 Dental abscess 041084016 K04.7 7822 Infection of sebaceous cyst 011468452 L72.3 L08.9 155849 Dysplastic nevus of skin 444719795 D22.9 [id number] Obese class I 1448312615 98570 E66.811 3716840817 Health Concerns Section Related Observation LastModified by Organization Detai ls LastModified Time None Recorded Concern Status LastModified by Organization Details LastModified Time None Recorded Advance Directives Directive None Recorded Payers Insurance Date Sequence Insurance Name Policy Number Policy George Covered Member ID George Member ID Guarantor Name 02/11/2025 1 [place]ID Krishna Wang [id number] Krishna Wang 10/30/[address] [facility] PRIOR TO 12/05/2024 (MEDICAID REPLACEMENT - HMO) [id number] Krishna Wang [id number] Krishna Wang 10/20/2020 SLIDING FEE SCHEDULE - DISCOUNT Krishna Wang 10/03/2019 1 *SELF PAY* Asha erramanda Wang 08/02/2018 1 MEDICAID - [facility] [place] [id number] Krishna Khan [facility] 10/30/2024 2 [facility] - DOS PRIOR TO 2020 (MEDICAID REPLACEMENT - HMO) Krishnakathy Bacaham [id number] Krishna L [facility] 10/30/2024 1 [place] [facility] OF PUBLIC AID Krishna Erin Bacaham [id number] Krishna L [facility] 10/30/2024 1 [facility] (MEDICAID HMO) Krishna Erin Bacaham [id number] Krishna L [facility] 10/30/2024 1 [place]: [facility] PUBLIC AID Krishna Felipe [id number] Krishna L [facility] 10/30/2024 1 [facility] (MEDICAID HMO) Krishna Wang [id number] Krishna Erin [facility] 10/30/2024 1 [facility] (MEDICAID HMO) Krishna Wang [id number] Krishna Erin [facility] 03/04/[address] [facility] - DOS ON OR AFTER 2024 (MEDICAID REPLACEMENT - HMO) [id number] Krishna Wang [id number] [facility] 02/11/2025 MEDICAID-[place]: [facility] Krishna Erin Bacaham [id number] [facility] 02/11/2025 SLIDING FEE SCHEDULE - DISCOUNT Krishna Erin Bacaham 11/03/2024 1 *SELF PAY* Ci erra Erin Wang 10/30/2024 1 [facility] (MEDICAID HMO) Krishna Erin Bacaham [id number] Krishna L [facility] 09/29/2016 SLIDING FEE SCHEDULE - DISCOUNT Krishna L [place] 10/03/2016 1 *SELF PAY* Ci erra Erin Wang Notes Date Note Type Note Provider Name and Address Organization Details Recorded Time 02/12/2024 text/html See flow sheet. Thelma Guy MA [facility] [place] [facility] [place] 02/12/2024 13:31:00 02/26/2024 text/html Pt is here for OB appointment. pt reports movement and denies contractions. Pt reports she is having light vaginal bleeding every other day. Pt denies pelvic pain. Pt reports she does feel like baby balls up and then that is when the vaginal bleeding occurs. Pt reports missed her MFM appointment. ESTEE GottiC Attn: [address]ing[address] [place], [address], [place] [facility] 02/27/2024 09:46:11 03/18/2024 text/html See flow sheet. Panchito Herman MD Attn: [address]ing[address] [place], [address], [place] [facility] 03/18/2024 15:35:49 03/31/2024 text/html See flow sheet. 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 Status 07/17/19 19 1 CLOSED Fetus Data First Name Last Name Admitted to NICU Weight (g) Sex Living Outcome Pediatric Complications Fetus ID Race Codes Race Delivery Type 2976.47 0704 F Full Term [id number] Vaginal Roberto Calculation Initial Roberto Date Initial Exam Date Initial Exam Provider Initial Ultrasound Date Last Menstrual Period Date Ultra Sound Weeks Gestation 0 Eighteen To Twenty Week Roberto Update Ultra Sound Date Fundal Height At Umbil Quickening Date Ultra Sound Latest Weeks Gestation Final Roberto Confirmed By Final Roberto Confirmed Date Final Roberto Date Ultra Sound Latest Days Gestation 0 0 Menstrual History Last Menstrual Date Menses Monthly On Bcp Conception Prior Menses Frequency Hcg Plus Date Menarche Onset Age Delivery Information Delivery Date Delivery Type Labor Anesthesia Weeks Gestation Incision Type Labor Labor Length Hrs Delivered By Post Complications Tubal Sterilization Discharge Date Comments 3 42 Discharge Information Feeding Method Contraceptive Method Maternal HG B and HCT Levels Ob Episode Information Episode Created Date Number of Fetuses Patient Bloodtype Patient rh Status Prepregnancy Weight lbs Domestic Partner Domestic Partner Phone Father Name Director Of Restaurant Operations Status 07/17/19 19 1 B Positive CLOSED Fetus Data First Name Last Name Admitted to NICU Weight (g) Sex Living Outcome Pediatric Complications Fetus ID Race Codes Race Delivery Type [id number] Problems Problem Notes Problem Name Start Date End Date Resolution Snomed Code Not e Tobacco user [id number] encoura ge cessation Roberto Calculation Initial Roberto Date Initial Exam Date Initial Exam Provider Initial Ultrasound Date Last Menstrual Period Date Ultra Sound Weeks Gestation 01/21/2019 07/16/2018 [email or web address] 07/17/2018 04/16/2018 9 Eighteen To Twenty Week Roberto Update Ultra Sound Date Fundal Height At Umbil Quickening Date Ultra Sound Latest Weeks Gestation Final Roberto Confirmed By Final Roberto Confirmed Date Final Roberto Date Ultra Sound Latest Days Gestation 0 [email or web address] 07/18/2018 02/19/20 19 0 Pre-cristina Flowsheet Flowsheet Date 07/16/2018 Perez Score Blood Edema Fundus Height Fundus Units Glucose Ketones Leukocytes Nitrite Labor Signs Protein Cervic Dilation Cervic Effacement Cervic Station none none Type Weight in lbs Pre/Post Dialysis Refused With clothes 192.391771966829 BP Diastolic BP Location Tested BP Systolic BP Type 78 128 sitting Fetus Heart Rate Present Fetus Movement Comments Patient presents for initial visit. Will obtain labs and schedule dating sonogram. CBE and pap smear at next visit. RTC in 2 weeks. Flowsheet Date 07/18/2018 Perez Score Blood Edema Fundus Height Fundus Units Glucose Ketones Leukocytes Nitrite Labor Signs Protein Cervic Dilation Cervic Effacement Cervic Station Type Weight in lbs Pre/Post Dialysis Refused 0.0 Not Performed BP Diastolic BP Location Tested BP Systolic BP Type Fetus Heart Rate Present Fetus Movement Comments Patient presents as an ED fo llow up secondary to a threatened . She had an ultrasound performed which showed a HR of 148. SSE performed- blood tinged fluid present in the posterior cul-de-sac. No overt bleeding noted. Bleeding precautions given. Will follow Beta HCG and follow up ultrasounds. Flowsheet Date 07/24/2018 Perez Score Blood Edema Fundus Height Fundus Units Glucose Ketones Leukocytes Nitrite Labor Signs Protein Cervic Dilation Cervic Effacement Cervic Station Type Weight in lbs Pre/Post Dialysis Refused BP Diastolic BP Location Tested BP Systolic BP Type Fetus Heart Rate Present Fetus Movement Comments Menstrual History Last Menstrual Date Menses Monthly On Bcp Conception Prior Menses Frequency Hcg Plus Date Menarche Onset Age 1204/16/2018 Genetic Screening And Infection History Question Response Note Patient's Age Will Be 35 Years Or Older At Estim ated Date of Delivery false Thalassemia (Bengali, Tajik, Mediterranean, Or Background): MCV < 80 false Neural Tube Defect (Meningomyelocele, Spina Bifi da, Or Anencephaly) false Congenital Heart Defect false Down Syndrome false Keivn-Sachs (eg, Confucianist, Cajun, Congolese-Syrian) f alse Abdifatah Disease false Sickle Cell Disease Or Trait () false Hemophilia Or Other Blood Disorders false Muscular Dystrophy false Cystic Fibrosis false [place]'s Chorea false Mental Retardation/Autism false Other Inherited Genetic Or Chromosomal Disorder false Maternal Metabolic Disorder (eg, Type 1 Diabetes , PKU) false Patient Or Baby's Father Had A Child With Defects Not Listed Above false Recurrent Loss, Or A Stillbirth false Medications (including Suppl ements, Vitamins, Herbs, OTC Drugs), Illicit/Recreational Drugs, Alcohol true PNV's Any Other Genetic History false Live With Someone With TB Or Exposed To TB false Patient Or Partner Has History Of Genital Herpes false Rash Or Viral Illness Since Last Menstrual Perio d false History Of STD, Gonorrhea, Chlamydia, HPV, Syphi lis false Other Infection History false History of HIV false History of Hepatitis false Prior GBS-infected child false Delivery Information Delivery Date Delivery Type Labor Anesthesia Weeks Gestation Incision Type Labor Labor Length Hrs Delivered By Post Complications Tubal Sterilization Discharge Date Comments 9 10.1 Miscarriag e Discharge Information Feeding Method Contraceptive Method Maternal HG B and HCT Levels Ob Episode Information Episode Created Date Number of Fetuses Patient Bloodtype Patient rh Status Prepregnancy Weight lbs Domestic Partner Domestic Partner Phone Father Name Director Of Restaurant Operations Status 10/15/19 24 1 B Positive CLOSED Fetus Data First Name Last Name Admitted to NICU Weight (g) Sex Living Outcome Pediatric Complications Fetus ID Race Codes Race Delivery Type 2608.15 4 [id number] [id number] White Vaginal Problems Problem Notes PRAPARE done Problem Name Start Date End Date Resolution Snomed Code Not e Placental abruption [id number] chronic placental abruption noted, pt left hospital AMA. Vaccination declined [id number] Tdap declined Miscarriage 07/24/2018 [id number] x5 Roberto Calculation Initial Roberto Date Initial Exam Date Initial Exam Provider Initial Ultrasound Date Last Menstrual Period Date Ultra Sound Weeks Gestation 04/15/2024 10/15/2023 jason 10/04/2023 07/11/2023 10 Eighteen To Twenty Week Roberto Update Ultra Sound Date Fundal Height At Umbil Quickening Date Ultra Sound Latest Weeks Gestation Final Roberto Confirmed By Final Roberto Confirmed Date Final Roberto Date Ultra Sound Latest Days Gestation 0 julia 01/24/2024 04/28/20 24 0 Pre-cristina Flowsheet Flowsheet Date 10/18/2023 Perez Score Blood Edema Fundus Height Fundus Units Glucose Ketones Leukocytes Nitrite Labor Signs Protein Cervic Dilation Cervic Effacement Cervic Station neg none none negative none 1+ 0cm Type Weight in lbs Pre/Post Dialysis Refused With clothes 224.812409479165 BP Diastolic BP Location Tested BP Systolic BP Type 72 120 sitting Fetus Heart Rate Present Fetus Movement Comments Patient presents for initial visit, CBE and pap smear performed. Will obtain labs and obtain records from initial ultrasound. Nutritional counseling performed. RTC in 4 weeks. Flowsheet Date 11/12/2023 Perez Score Blood Edema Fundus Height Fundus Units Glucose Ketones Leukocytes Nitrite Labor Signs Protein Cervic Dilation Cervic Effacement Cervic Station neg none none negative neg Type Weight in lbs Pre/Post Dialysis Refused With clothes 220.442414146295 BP Diastolic BP Location Tested BP Systolic BP Type 79 133 sitting Fetus Heart Rate Present A 150's Present Fetus Movement Comments Patient presents as a follow up secondary to bleeding x 2 episodes. She was seen at [place] and an ultrasound was performed in which the cervical os was found to closed on digital exam and ultrasound. Brown tinged discharge was seen today on SSE, cervical os is closed on SVE. Pt denies cramping and any further bleeding. Will refer to M for co-management. Pt placed on light duty at work with no lifting. Materniti 21 testing today. Will also obtain anatomy sonogram. RTC in 2 weeks. Flowsheet Date 12/26/2023 Perez Score Blood Edema Fundus Height Fundus Units Glucose Ketones Leukocytes Nitrite Labor Signs Protein Cervic Dilation Cervic Effacement Cervic Station 1+ none 24 cm none trace none trace 0cm Type Weight in lbs Pre/Post Dialysis Refused Weight 225.097903270908 BP Diastolic BP Location Tested BP Systolic BP Type 82 R arm 125 sitting Fetus Heart Rate Present A 140's Present Fetus Movement A Yes Comments The patient states that she was recently seen in the ED secondary to vaginal bleeding. She states she has not been sexually active and had an ultrasound performed which showed a subchorionic hemorrhage that is decreasing in size. Cervix is closed on SVE. Will RTC to complete DMS prior to next appointment. labor precautions given. RTC in 4 weeks for routine care. Flowsheet Date 01/24/2024 Perez Score Blood Edema Fundus Height Fundus Units Glucose Ketones Leukocytes Nitrite Labor Signs Protein Cervic Dilation Cervic Effacement Cervic Station 3+ none 27 cm none negative none neg Type Weight in lbs Pre/Post Dialysis Refused Weight 213.540545304560 BP Diastolic BP Location Tested BP Systolic BP Type 89 R arm 131 sitting Fetus Heart Rate Present A 130's Present Fetus Movement A Yes Comments Patient was recently hospita lized secondary to bleeding, subchoirionic hemorrhage still noted. Per last ultrasound subchorionic hemorrhage is not expandinng. She was seen on L&D yesterday secondary to a gush of blood occuring, NST was reactive. Will continue co-management with MFM secondary to co-morbidities. Flowsheet Date 02/12/2024 Perez Score Blood Edema Fundus Height Fundus Units Glucose Ketones Leukocytes Nitrite Labor Signs Protein Cervic Dilation Cervic Effacement Cervic Station 1+ none 29 cm none negative none trace Type Weight in lbs Pre/Post Dialysis Refused With clothes 232.755575636784 BP Diastolic BP Location Tested BP Systolic BP Type 81 R arm 139 sitting 78 R arm 128 sitting Fetus Heart Rate Present A 140's Present Fetus Movement A Yes Comments Patient continues to have ir regular vaginal bleeding secondary to subchorionic hematoma. Will continue care with MFM. She admits to FM, denies LOF and CTXs. RTC in 2 weeks Flowsheet Date 02/26/2024 Perez Score Blood Edema Fundus Height Fundus Units Glucose Ketones Leukocytes Nitrite Labor Signs Protein Cervic Dilation Cervic Effacement Cervic Station 3+ none 32 cm none negative Bleeding trace Type Weight in lbs Pre/Post Dialysis Refused With clothes 234.110339575139 BP Diastolic BP Location Tested BP Systolic BP Type 82 R arm 134 sitting Fetus Heart Rate Present A 130 Present Fetus Movement A Yes Comments Pt is here for OB appointmen t. pt reports movement and denies contractions. Pt reports she is having light vaginal bleeding every other day. Pt denies pelvic pain. Pt reports she does feel like baby balls up and then that is when the vaginal bleeding occurs. Pt reports this happens every few days. Pt denies this occuring today. Pt reports missed her [facility] appointment.Called [facility] and Spoke with Josey MILLER and she said MD recommend pt come over to [facility] today and they will evaluate her. Pt notified of need to go to [facility] for STAT evaluation today. Pt educated on importance of follow up with [facility] today and notified of risks chronic placental abruption including high rates of , serious morbidity from , and . pt verbalized understanding and said she will go today.Reviewed with Dr. Herman telephone and recommended requesting full transfer to [facility] Flowsheet Date 03/18/2024 Perez Score Blood Edema Fundus Height Fundus Units Glucose Ketones Leukocytes Nitrite Labor Signs Protein Cervic Dilation Cervic Effacement Cervic Station trace none 35 cm none negative none neg Type Weight in lbs Pre/Post Dialysis Refused With clothes 237.639079788731 BP Diastolic BP Location Tested BP Systolic BP Type 80 R arm 128 sitting Fetus Heart Rate Present A 140's Present Fetus Movement A Yes Comments Patient denies any complaint s. She admits to , denies VB, LOF and CTXs. Will continue co-management with [facility] for subchorionic hemorrhage. labor precautions given. RTC in 1 week. Flowsheet Date 03/31/2024 Perez Score Blood Edema Fundus Height Fundus Units Glucose Ketones Leukocytes Nitrite Labor Signs Protein Cervic Dilation Cervic Effacement Cervic Station neg none 35 cm none trace none neg Type Weight in lbs Pre/Post Dialysis Refused With clothes 240.151431806955 BP Diastolic BP Location Tested BP Systolic BP Type 85 R arm 131 sitting Fetus Heart Rate Present A 130's Present Fetus Movement A Yes Comments Patient admits to FM, denies VB, LOF and CTXs. GBS and STD testing today. labor precautions given. RTC in 1 week. Menstrual History Last Menstrual Date Menses Monthly On Bcp Conception Prior Menses Frequency Hcg Plus Date Menarche Onset Age 0307/11/2023 Genetic Screening And Infection History Question Response Note Patient's Age Will Be 35 Yea rs Or Older At Estimated Date of Delivery false Thalassemia (Bengali, Tajik, Mediterranean, Or Background): MCV < 80 false Neural Tube Defect (Meningom yelocele, Spina Bifida, Or Anencephaly) false Congenital Heart Defect false Down Syndrome false Kevin-Sachs (eg, Confucianist, Cajun, Congolese-Syrian) f alse Abdifatah Disease false Sickle Cell Disease Or Trait () false Hemophilia Or Other Blood Disorders false Muscular Dystrophy false Cystic Fibrosis false Mental Retardation/Autism true daught er autism Other Inherited Genetic Or Chromosomal Disorder false Maternal Metabolic Disorder (eg, Type 1 Diabetes , PKU) false Patient Or Baby's Father Had A Child With Defects Not Listed Above false Recurrent Loss, Or A Stillbirth true SAB X 5 Medications (including Suppl ements, Vitamins, Herbs, OTC Drugs), Illicit/Recreational Drugs, Alcohol true PNV Any Other Genetic History false Live With Someone With TB Or Exposed To TB false Patient Or Partner Has History Of Genital Herpes false Rash Or Viral Illness Since Last Menstrual Perio d false History Of STD, Gonorrhea, Chlamydia, HPV, Syphi lis false Other Infection History false History of HIV false History of Hepatitis false Prior GBS-infected child false Delivery Information Delivery Date Delivery Type Labor Anesthesia Weeks Gestation Incision Type Labor Labor Length Hrs Delivered By Post Complications Tubal Sterilization Discharge Date Comments 4 37 [place] Discharge Information Feeding Method Contraceptive Method Maternal HG B and HCT Levels Ob Episode Information Episode Created Date Number of Fetuses Patient Bloodtype Patient rh Status Prepregnancy Weight lbs Domestic Partner Domestic Partner Phone Father Name Director Of Restaurant Operations Status 04/13/20 20 1 B Positive CLOSED Fetus Data First Name Last Name Admitted to NICU Weight (g) Sex Living Outcome Pediatric Complications Fetus ID Race Codes Race Delivery Type 2806.60 05 F true Full Term [id number] [id number] White Vaginal Problems Problem Notes LMP sometime in feb Problem Name Start Date End Date Resolution Snomed Code Not e 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 [id number] co-manage with [facility] Anemia [id number] Herpesvirus infection [id number] Suppression therapy at 36 weeks Infection by Trichomonas [id number] Treated on 05/07 05/27 Roberto Calculation Initial Roberto Date Initial Exam Date Initial Exam Provider Initial Ultrasound Date Last Menstrual Period Date Ultra Sound Weeks Gestation 11/24/2020 04/13/2020 [email or web address] 05/31/2020 02/18/2020 13 Eighteen To Twenty Week Roberto Update Ultra Sound Date Fundal Height At Umbil Quickening Date Ultra Sound Latest Weeks Gestation Final Roberto Confirmed By Final Roberto Confirmed Date Final Roberto Date Ultra Sound Latest Days Gestation 0 julia07/05/2020 12/04/19 21 0 Pre- Flowsheet Flowsheet Date 04/15/2020 Perez Score Blood Edema Fundus Height Fundus Units Glucose Ketones Leukocytes Nitrite Labor Signs Protein Cervic Dilation Cervic Effacement Cervic Station Type Weight in lbs Pre/Post Dialysis Refused BP Diastolic BP Location Tested BP Systolic BP Type 80 122 sitting Fetus Heart Rate Present Fetus Movement Comments Flowsheet Date 05/17/2020 Perez Score Blood Edema Fundus Height Fundus Units Glucose Ketones Leukocytes Nitrite Labor Signs Protein Cervic Dilation Cervic Effacement Cervic Station neg none none negative none neg Type Weight in lbs Pre/Post Dialysis Refused With clothes 201.483522041547 BP Diastolic BP Location Tested BP Systolic BP Type 86 144 sitting Fetus Heart Rate Present Fetus Movement Comments Patient denies any complaint s. She denies vaginal bleeding, and no vaginal discharge. Will treat trichomonas today with metronidazole. Secondary to recurrent losses will co-manage with MFM. Will test progesterone level today. RTC in 4 weeks. Flowsheet Date 07/05/2020 Perez Score Blood Edema Fundus Height Fundus Units Glucose Ketones Leukocytes Nitrite Labor Signs Protein Cervic Dilation Cervic Effacement Cervic Station neg none none negative none neg Type Weight in lbs Pre/Post Dialysis Refused With clothes 28.1029531568897 BP Diastolic BP Location Tested BP Systolic BP Type 82 140 sitting 80 136 sitting Fetus Heart Rate Present A 140's Present Fetus Movement Comments Patient denies any complaint s. She admits to FM, denies VB and LOF. labor precautions given. RTC in 4 weeks. Flowsheet Date 09/15/2020 Perez Score Blood Edema Fundus Height Fundus Units Glucose Ketones Leukocytes Nitrite Labor Signs Protein Cervic Dilation Cervic Effacement Cervic Station neg none 29 cm none negative none neg Type Weight in lbs Pre/Post Dialysis Refused With clothes 233.153445877858 BP Diastolic BP Location Tested BP Systolic BP Type 78 122 sitting Fetus Heart Rate Present A 140's Present Fetus Movement A Yes Comments Patient denies any complaint s. She admits to , denies VB, LOF and CTXs. DMS and CBC today. Will schedule anatomy sonogram. labor precautions given. RTC in 3 weeks. Flowsheet Date 11/12/2020 Perez Score Blood Edema Fundus Height Fundus Units Glucose Ketones Leukocytes Nitrite Labor Signs Protein Cervic Dilation Cervic Effacement Cervic Station neg none 37 cm none negative none trace Type Weight in lbs Pre/Post Dialysis Refused With clothes 239.74843342765 BP Diastolic BP Location Tested BP Systolic BP Type 96 126 sitting 80 134 sitting Fetus Heart Rate Present A 140's Present Fetus Movement A Yes Comments GBS and STD testing today. P atient denies any complaints. She admits to , denies VB, LOF and CTXs. Will start suppression therapy today, acyclovir TID until delivery. Labor precautions given. RTC in 1 week. Menstrual History Last Menstrual Date Menses Monthly On Bcp Conception Prior Menses Frequency Hcg Plus Date Menarche Onset Age 1002/18/2020 true 7 9 Genetic Screening And Infection History Question Response Note Patient's Age Will Be 35 Yea rs Or Older At Estimated Date of Delivery false Thalassemia (Bengali, Tajik, Mediterranean, Or Background): MCV < 80 false Neural Tube Defect (Meningom yelocele, Spina Bifida, Or Anencephaly) false Congenital Heart Defect false Down Syndrome false Kevin-Sachs (eg, Confucianist, Cajun, Congolese-Syrian) f alse Abdifatah Disease false Sickle Cell Disease Or Trait () false Hemophilia Or Other Blood Disorders true anemia Muscular Dystrophy false Cystic Fibrosis false [place]'s Chorea false Mental Retardation/Autism false If Yes, Was Person Tested For Fragile X? false Other Inherited Genetic Or Chromosomal Disorder false Maternal Metabolic Disorder (eg, Type 1 Diabetes , PKU) true grandmother Patient Or Baby's Father Had A Child With Defects Not Listed Above false Recurrent Loss, Or A Stillbirth true 5 miscarriages Medications (including Suppl ements, Vitamins, Herbs, OTC Drugs), Illicit/Recreational Drugs, Alcohol false If Yes, Agent(s) And Strength/Dosage false Any Other Genetic History false Live With Someone With TB Or Exposed To TB false Patient Or Partner Has History Of Genital Herpes false Rash Or Viral Illness Since Last Menstrual Perio d false History Of STD, Gonorrhea, Chlamydia, HPV, Syphi lis false Other Infection History false History of HIV false History of Hepatitis false Prior GBS-infected child false Delivery Information Delivery Date Delivery Type Labor Anesthesia Weeks Gestation Incision Type Labor Labor Length Hrs Delivered By Post Complications Tubal Sterilization Discharge Date Comments 1 [facility] 40.1 false Kaci YATES (o/c) Discharge Information Feeding Method Contraceptive Method Maternal HG B and HCT Levels 7.6/25.9 Ob Episode Information Episode Created Date Number of Fetuses Patient Bloodtype Patient rh Status Prepregnancy Weight lbs Domestic Partner Domestic Partner Phone Father Name Director Of Restaurant Operations Status 05/17/19 21 1 CLOSED Fetus Data First Name Last Name Admitted to NICU Weight (g) Sex Living Outcome Pediatric Complications Fetus ID Race Codes Race Delivery Type , [place] [id number] Roberto Calculation Initial Roberto Date Initial Exam Date Initial Exam Provider Initial Ultrasound Date Last Menstrual Period Date Ultra Sound Weeks Gestation 0 Eighteen To Twenty Week Roberto Update Ultra Sound Date Fundal Height At Umbil Quickening Date Ultra Sound Latest Weeks Gestation Final Roberto Confirmed By Final Roberto Confirmed Date Final Roberto Date Ultra Sound Latest Days Gestation 0 0 Menstrual History Last Menstrual Date Menses Monthly On Bcp Conception Prior Menses Frequency Hcg Plus Date Menarche Onset Age Delivery Information Delivery Date Delivery Type Labor Anesthesia Weeks Gestation Incision Type Labor Labor Length Hrs Delivered By Post Complications Tubal Sterilization Discharge Date Comments 8 7 Discharge Information Feeding Method Contraceptive Method Maternal HG B and HCT Levels Ob Episode Information Episode Created Date Number of Fetuses Patient Bloodtype Patient rh Status Prepregnancy Weight lbs Domestic Partner Domestic Partner Phone Father Name Director Of Restaurant Operations Status 05/17/19 21 1 CLOSED Fetus Data First Name Last Name Admitted to NICU Weight (g) Sex Living Outcome Pediatric Complications Fetus ID Race Codes Race Delivery Type , [place] [id number] Roberto Calculation Initial Roberto Date Initial Exam Date Initial Exam Provider Initial Ultrasound Date Last Menstrual Period Date Ultra Sound Weeks Gestation 0 Eighteen To Twenty Week Roberto Update Ultra Sound Date Fundal Height At Umbil Quickening Date Ultra Sound Latest Weeks Gestation Final Roberto Confirmed By Final Roberto Confirmed Date Final Roberto Date Ultra Sound Latest Days Gestation 0 0 Menstrual History Last Menstrual Date Menses Monthly On Bcp Conception Prior Menses Frequency Hcg Plus Date Menarche Onset Age Delivery Information Delivery Date Delivery Type Labor Anesthesia Weeks Gestation Incision Type Labor Labor Length Hrs Delivered By Post Complications Tubal Sterilization Discharge Date Comments 1 19.2 D&CPost- p artum hemorrhag e Discharge Information Feeding Method Contraceptive Method Maternal HG B and HCT Levels Ob Episode Information Episode Created Date Number of Fetuses Patient Bloodtype Patient rh Status Prepregnancy Weight lbs Domestic Partner Domestic Partner Phone Father Name Director Of Restaurant Operations Status 05/17/19 21 1 CLOSED Fetus Data First Name Last Name Admitted to NICU Weight (g) Sex Living Outcome Pediatric Complications Fetus ID Race Codes Race Delivery Type , [place] [id number] Roberto Calculation Initial Roberto Date Initial Exam Date Initial Exam Provider Initial Ultrasound Date Last Menstrual Period Date Ultra Sound Weeks Gestation 0 Eighteen To Twenty Week Roberto Update Ultra Sound Date Fundal Height At Umbil Quickening Date Ultra Sound Latest Weeks Gestation Final Roberto Confirmed By Final Roberto Confirmed Date Final Roberto Date Ultra Sound Latest Days Gestation 0 0 Menstrual History Last Menstrual Date Menses Monthly On Bcp Conception Prior Menses Frequency Hcg Plus Date Menarche Onset Age Delivery Information Delivery Date Delivery Type Labor Anesthesia Weeks Gestation Incision Type Labor Labor Length Hrs Delivered By Post Complications Tubal Sterilization Discharge Date Comments 5 Discharge Information Feeding Method Contraceptive Method Maternal HG B and HCT Levels Ob Episode Information Episode Created Date Number of Fetuses Patient Bloodtype Patient rh Status Prepregnancy Weight lbs Domestic Partner Domestic Partner Phone Father Name Director Of Restaurant Operations Status 02/11/20 16 1 DELETED Fetus Data First Name Last Name Admitted to NICU Weight (g) Sex Living Outcome Pediatric Complications Fetus ID Race Codes Race Delivery Type [id number] Roberto Calculation Initial Roberto Date Initial Exam Date Initial Exam Provider Initial Ultrasound Date Last Menstrual Period Date Ultra Sound Weeks Gestation 10/07/2016 02/11/2016 01/01/2016 0 Eighteen To Twenty Week Roberto Update Ultra Sound Date Fundal Height At Umbil Quickening Date Ultra Sound Latest Weeks Gestation Final Roberto Confirmed By Final Roberto Confirmed Date Final Roberto Date Ultra Sound Latest Days Gestation 0 10/08/19 17 0 Menstrual History Last Menstrual Date Menses Monthly On Bcp Conception Prior Menses Frequency Hcg Plus Date Menarche Onset Age 0801/01/2016 Delivery Information Delivery Date Delivery Type Labor Anesthesia Weeks Gestation Incision Type Labor Labor Length Hrs Delivered By Post Complications Tubal Sterilization Discharge Date Comments Discharge Information Feeding Method Contraceptive Method Maternal HG B and HCT Levels Ob Episode Information Episode Created Date Number of Fetuses Patient Bloodtype Patient rh Status Prepregnancy Weight lbs Domestic Partner Domestic Partner Phone Father Name Director Of Restaurant Operations Status 02/11/20 16 1 DELETED Roberto Calculation Initial Roberto Date Initial Exam Date Initial Exam Provider Initial Ultrasound Date Last Menstrual Period Date Ultra Sound Weeks Gestation 0 Eighteen To Twenty Week Roberto Update Ultra Sound Date Fundal Height At Umbil Quickening Date Ultra Sound Latest Weeks Gestation Final Roberto Confirmed By Final Roberto Confirmed Date Final Roberto Date Ultra Sound Latest Days Gestation 0 0 Menstrual History Last Menstrual Date Menses Monthly On Bcp Conception Prior Menses Frequency Hcg Plus Date Menarche Onset Age Delivery Information Delivery Date Delivery Type Labor Anesthesia Weeks Gestation Incision Type Labor Labor Length Hrs Delivered By Post Complications Tubal Sterilization Discharge Date Comments 3 Regional-Ep idural 44 false Discharge Information Feeding Method Contraceptive Method Maternal HG B and HCT Levels Ob Episode Information Episode Created Date Number of Fetuses Patient Bloodtype Patient rh Status Prepregnancy Weight lbs Domestic Partner Domestic Partner Phone Father Name Director Of Restaurant Operations Status 07/19/19 17 1 B Positive CLOSED Fetus Data First Name Last Name Admitted to NICU Weight (g) Sex Living Outcome Pediatric Complications Fetus ID Race Codes Race Delivery Type [place] Ingr[employer] am false 3005.04 7 M true Full Term [id number] [id number] White Vaginal Roberto Calculation Initial Roberto Date Initial Exam Date Initial Exam Provider Initial Ultrasound Date Last Menstrual Period Date Ultra Sound Weeks Gestation 03/23/2017 07/18/2016 [email or web address] 08/01/2016 06/15/2016 5 Eighteen To Twenty Week Roberto Update Ultra Sound Date Fundal Height At Umbil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
--- OUTSIDE RECORDS SUMMARY | 2025-03-04 18:42 | XMS_ITS | Clinical Summary ---
Author Organization [facility] Address [address] [place] [address] Phone Care Team Providers Care Veterinary Surgeon Name Role Phone Bryce Cordova MARI Primary Care Provider [phone] Allergies Active Allergy Reactions Criticality Noted Date Comments Amoxicillin Hives,Palpitations 09/06/2017 Ibuprofen Palpitations 07/16/2015 Naproxen Shortness of Breath,Swelling,Palpitations 07/16/2015 Penicillins Palpitations 07/16/2015 Tramadol Palpitations 07/16/2015 Medications Ferrous Sulfate 325 (65 Fe) MG Tablet Delayed Response Take 1 Tab by mouth daily. 30 Tab 12/22/2019 Active HYDROcodone-leander taminophen (NORCO) 5-325 MG Tablet Take 1 Tab by mouth every 6 hours as needed for Moderate or more severe pain. 12 Tab 03/19/2020 Active Active Problems No known active problems Social History Tobacco Use Types Packs/Day Years Used Date Smoking Tobacco: Every Day Cigarettes Smokeless Tobacco: Never Alcohol Use Standard Drinks/Week Comments No 0 (1 standard drink = 0.6 oz pur e alcohol) Sexually Active Control Partners Comments Yes Male Comments Unknown Sex and Gender Information Value Date Recorded Sex Assigned at Not on file Legal Sex Female 9:49 PM CDT Gender Identity Not on file Sexual Orientation Not on file Last Filed Vital Signs Vital Sign Reading Time Taken Comments Blood Pressure 132/80 08/17/2020 4:13 PM CDT Pulse 113 08/17/2020 4:12 PM CDT Temperature 36.6 C (97.9 F) 08/17/2020 4:12 PM CDT Respiratory Rate 18 08/17/2020 4:12 PM CDT Oxygen Saturation 100% 08/17/2020 4:12 PM CDT Inhaled Oxygen Concentration - - Weight 74.8 kg (165 lb) 08/17/2020 4:12 PM CDT Height 176.5 cm (5' 9.5) 08/17/2020 4:12 PM CDT Body Mass Index 24.02 08/17/2020 4:12 PM CDT Plan of Treatment Health Maintenance Due Date Last Done Comments Hepatitis C Virus (HCV) Screening 1993 Pap Smear 2014 Cervical Cancer Screening (CCS) 2023 HPV/Cotest 2023 Influenza Immunization (#1) 01/05/202501/05, 03/01/2010, 06/04/2008, Additional history exists SARS-COV-2 Immunization ( season) 2025 Respiratory Syncytial Virus (RSV) Immunization (Adult) (1 - 1-dose 75+ series) 02/26/2068 Hepatitis B Immunization Completed 994, 1993, 1993 Human Papillomavirus (HPV) Immunization Completed 12/19/2007, 03/14/2007, 12/18/2006 Meningococcal Immunization (ACWY) Completed 08/04/2010, 12/19/2007 DTaP/Tdap/Td Immunization Discontinued 2016, 04/15/2013, 05/17/2005, Additional history exists TdaP Immunization Completed 01/05/2017, , 05/17/2005 Pneumococcal Immunization Combined Aged Out No longer eligible based on patient's age to complete this topic Rotavirus Immunization Aged Out No lo nger eligible based on patient's age to complete this topic Insurance [place] Advance Directives * Full Code (Latest Code Status on File) Date Activated Date Inactivated Comments 12/27/2016 9:17 PM 12/28/2016 4:37 AM CPR-Full Carlos atment: FULL ARREST: Attempt Resuscitation/CPR wit intubation and mechanical ventilation. PRE-ARREST: Use entire range of life support measures to stabilize the patient. Care Teams Veterinary Surgeon Relationship Specialty Start Date End Date Bryce Cordova PAC [address] [place] [address] PCP - General Physician Wellness Rn 07/16/15
--- OUTSIDE RECORDS SUMMARY | 2025-03-04 18:42 | XMS_ITS | Clinical Summary ---
Author Organization [facility] Address [address] [place] [id number] Care Team Providers Care Cocoa Mill Operator Name Role Phone Kaushik Berman MD Primary Care Provider [phone] Allergies Active Allergy Reactions Criticality Noted Date Comments Amoxicillin Palpitations Low 01/14/2024 Ibuprofen Palpitations Low 01/14/2024 Naproxen Palpitations Low 01/14/2024 Penicillins Palpitations Low 01/14/2024 Tramadol Hives 01/14/2024 Medications vitamin, low iron, 27-0.8 MG tablet Take 1 tablet by mouth daily. Active Active Problems Problem Noted Date Diagnosed Date Normal labor 04/07/2024 Social History Tobacco Use Types Packs/Day Years Used Date Smoking Tobacco: Every Day Cigarettes 1 14.8 Started: 2010 Smokeless Tobacco: Never Tobacco Cessation:Ready to Q uit: No; Counseling Given: No Alcohol Use Standard Drinks/Week Comments Not Currently 0 (1 standard drink = 0.6 oz pur e alcohol) B1300 Health Literacy Answer Date Recor ded How often do you need to hav e someone help you when you read instructions, pamphlets, or other written material from your doctor or pharmacy? Never 04/07/2024 [facility] Utilities Answer Date Recorded In the past 12 months has e [employer], oil, or water [employer] threatened to shut off services in your home? No 04/07/2024 Humiliation, Afraid, Rape, and Kick questionnair e Answer Date Recorded Within the last year, have y ou been afraid of your partner or ex-partner? No 04/07/2024 Within the last year, have y ou been humiliated or emotionally abused in other ways by your partner or ex-partner? No Within the last year, have y ou been kicked, hit, slapped, or otherwise physically hurt by your partner or ex-partner? No 04/07/2024 Within the last year, have y ou been raped or forced to have any kind of sexual activity by your partner or ex-partner? No 04/07/2024 Social Connection and Isolation Panel Answer Date Recorded In a typical week, how many times do you talk on the phone with family, friends, or neighbors? More than three times a week 04/07/2024 How often do you get togethe r with friends or relatives? Three times a week 04/07/2024 How often do you attend chur or latter-day services? Never 04/07/2024 Do you belong to any clubs o r organizations such as scientology groups, unions, fraternal or athletic groups, or school groups? No 04/07/2024 How often do you attend meet ings of the clubs or organizations you belong to? Never 04/07/2024 Are you , , di vorced, , never , or living with a partner? Living with partner 04/07/2024 AUDIT-C Answer Date Recorded Q1: How often do you have a drink containing alcohol? Monthly or less 04/07/2024 Q2: How many drinks containi ng alcohol do you have on a typical day when you are drinking? Patient unable to answer Q3: How often do you have si x or more drinks on one occasion? Patient unable to answer 04/07/2024 Overall Financial Resource Strain (CARDIA) Answe r Date Recorded How hard is it for you to pa y for the very basics like food, housing, medical care, and heating? Not very hard 04/07/2024 PHQ-2 Answer Date Recorded Patient Health Questionnaire-2 Score 0 04/07/2024 [facility] - Occupational Stress Questionnaire Answer Date Recorded Do you feel stress - tense, restless, nervous, or anxious, or unable to sleep at night because your mind is troubled all the time - these days? Not at all 04/07/2024 Exercise Vital Sign Answer Date Recorde d On average, how many days pe r week do you engage in moderate to strenuous exercise (like a brisk walk)? 6 days 04/07/2024 On average, how many minutes do you engage in exercise at this level? 30 min 04/07/2024 Hunger Vital Sign Answer Date Recorded Within the past 12 months, y ou worried that your food would run out before you got the money to buy more. Never true 04/07/20 24 Within the past 12 months, t he food you bought just didn't last and you didn't have money to get more. Never true 04/07/2024 PRAPARE - Transportation Answer Date Re corded In the past 12 months, has l ack of transportation kept you from medical appointments or from getting medications? No 06/2023 In the past 12 months, has l ack of transportation kept you from meetings, work, or from getting things needed for daily living? No 04/07/2024 Housing Stability Vital Sign Answer Wild e Recorded In the last 12 months, was t here a time when you were not able to pay the mortgage or rent on time? No 04/07/2024 In the past 12 months, how m any times have you moved where you were living? 0 04/07/2024 At any time in the past 12 m [facility], were you homeless or living in a long-term (including now)? No 04/07/2024 Comments No Sex and Gender Information Value Date Recorded Sex Assigned at Female 04/07/2024 10:13 PM PIANO MECHANIC APPRENTICE Legal Sex Female 12:01 PM CDT Gender Identity Female 04/07/2024 10:12 PM PIANO MECHANIC APPRENTICE Sexual Orientation Straight 04/07/2024 8: 28 PM PIANO MECHANIC APPRENTICE Last Filed Vital Signs Vital Sign Reading Time Taken Comments Blood Pressure 126/77 04/11/2024 12:30 PM PIANO MECHANIC APPRENTICE Pulse 82 04/11/2024 12:30 PM PIANO MECHANIC APPRENTICE Temperature 36.1 C (97 F) 04/11/2024 12:30 PM PIANO MECHANIC APPRENTICE Respiratory Rate 18 04/11/2024 12:30 PM PIANO MECHANIC APPRENTICE Oxygen Saturation 99% 04/11/2024 12:30 PM PIANO MECHANIC APPRENTICE Inhaled Oxygen Concentration - - Weight 108.9 kg (240 lb) 04/07/2024 5:55 PM PIANO MECHANIC APPRENTICE Height 175.3 cm (5' 9) 04/07/2024 5:55 PM PIANO MECHANIC APPRENTICE Body Mass Index 35.44 04/07/2024 5:55 PM PIANO MECHANIC APPRENTICE Plan of Treatment Health Maintenance Due Date Last Done Comments Annual Physical 02/26/1996 Hepatitis C 2011 Pneumococcal Vaccine: Pediatrics (0 to 5 Years) and At-Risk Patients (6 to 49 Years) (1 of 2 - PCV) 02/26/2012 COVID-19 Vaccine (1 - season) 2025 Influenza Adult (#1) 2025 01/19/2011, 03/01/2010, 06/04/2008, Additional history exists DTaP, Tdap and Td Vaccines (7 - Td or Tdap) 01/05/2027 01/05/2017, 04/15/2013, 05/17/2005, Additional history exists Cervical Cancer Screening Pap Smear (Age 30 to 64) Every 3 Years 01/14/2027 01/15/2024 Cervical Cancer Screening Pap with HPV Testing (Age 30 to 64) Every 5 Years 01/14/2029 01/15/2024 Cervical Cancer Screening with HPV 01/14/2029 Hepatitis B Vaccines Completed 01/19/1994, 1993, 1993 Hepatitis A Vaccines Completed 12/18/2006, 01/05/20 06 HPV Vaccines Completed 12/19/2007, 11/0 12/2006, 12/18/2006 Meningococcal Vaccine Completed 08/04/2010, 008 Meningococcal B Vaccine Aged Out No l onger eligible based on patient's age to complete this topic RSV Immunizations Under 20 Months Aged Out No longer eligible based on patient's age to complete this topic Insurance BLUE CROSS BLUE SHIELD MEDICAID C/[employer] PROVID[employer] SERVICES YANELI LOPEZ [id number] Advance Directives * Full Code (Latest Code Status on File) Date Activated Date Inactivated Comments 04/07/2024 6:29 PM 04/09/2024 6:46 PM * Full Code Date Activated Date Inactivated Comments 04/07/2024 6:29 PM 04/07/2024 6:29 PM Care Teams Cocoa Mill Operator Relationship Specialty Start Date End Date Kaushik Berman MD [address] [place] [id number] PCP - General FAMILY PRACTICE 12/23/23
--- NOTE | 2025-03-04 18:52 | ED_ITS ---
HPI - URI/Sore Throat General Chief Complaint: Upper Respiratory Infection Stated Complaint: congestion, cough Time Seen by Provider: 03/04/25 18:47 Source: patient Mode of arrival: ambulatory Limitations: no limitations History of Present Illness HPI Narrative: 30-year-old female, smoker is noted to have a --2 week history of nasal congestion, sore throat and sinus fullness --cough with mucoid sputum. --lightheadedness for the past 1 day. Comes on when she stands up. No syncopal spells. No fever or chills. No chest pain MD elicited complaint: cough, rhinorrhea, nasal congestion and sinus pain Onset (ago): week(s) (2 weeks) Consistency: constant Description of mucous: clear Able to tolerate fluids by mouth: Yes Exacerbating factors: nothing Relieving factors: nothing Associated symptoms: nasal congestion, sore throat and cough Treatments prior to arrival: none Related Data Allergies Allergy/AdvReac Type Severity Reaction Status Date / Time tramadol Allergy Intermediate HIVES Verified 03/04/25 18:49 aspirin Allergy Unknown N/V, Verified 03/04/25 18:49 HIVES, THROAT SWELLING codeine Allergy Unknown Nausea and Verified 03/04/25 18:49 Vomiting ibuprofen Allergy Unknown N/V, Verified 03/04/25 18:49 HIVES, THROAT SWELLING naproxen Allergy Unknown Hives / Verified 03/04/25 18:49 Red Face oxycodone Allergy Unknown Palpitation Verified 03/04/25 18:49 s Penicillins Allergy Unknown Palpitation Verified 03/04/25 18:49 s Review of Systems Review of Systems: All systems reviewed & are unremarkable except as noted in HPI and below Constitutional: Constitutional: Reports as per HPI, Reports no additional constitutional complaints, Reports fatigue and Reports weakness Eyes: Eyes: Reports as per HPI and Reports no additional eye complaints ENT: Reports system reviewed and no additional complaints, except as documented, Reports as per HPI, Reports nasal congestion and Reports sore throat Cardiovascular: Cardiovascular: Reports as per HPI and Reports no additional cardiovascular complaints Respiratory: Respiratory: Reports as per HPI, Reports no additional respiratory complaints and Reports cough Gastrointestinal: Gastrointestinal: Reports as per HPI and Reports no additional gastrointestinal complaints Genitourinary: Genitourinary: Reports no additional female genitourinary complaints and Reports as per HPI Musculoskeletal: Musculoskeletal: Reports no additional musculoskeletal complaints and Reports as per HPI Integumentary/Breasts: Skin/Breast: Reports system reviewed and no additional complaints, except as docu and Reports as per HPI Neurologic: Reports system reviewed and no additional complaints, except as documented and Reports as per HPI Psychiatric: Psychiatric: Reports no additional psychiatric complaints and Reports as per HPI Endocrine: Endocrine: Reports no additional endocrine complaints and Reports as per HPI Hematologic/Lymphatic: Hematologic/Lymphatic: Reports no additional hematolo gic/lymphatic complaints and Reports as per HPI Allergic/Immunologic: Allergic/Immunologic: Reports no additional allergic/immunologic complaints and Reports as per HPI [facility] Past Medical History Medical History Patient denies medical problems Exam Narrative: Vitals are stable. Lying blood pressure 146/84. Standing blood pressure 142/100 Const: General: healthy appearing and no acute distress Orientation/consciousness: patient oriented x3 HENMT: Head: normal to inspection Ears: external ears normal Face/Nose/Sinus: Normal external nose present Face and sinus: normal facial exam Mouth: Yes Normal oral and palatal mucosa present Throat: posterior oropharynx normal Eyes: Conjunctivae: conjunctivae normal Pupils: Equal, round and reactive pupils present EOM: EOMs intact bilaterally Direct Ophthalmoscopy: no photophobia Neck: Neck: normal visual inspection, no lymphadenopathy and no meningeal signs Chest: Chest palpation & inspection: normal inspection of the chest Resp: Effort & Inspection: normal respiratory effort Auscultation: rhonchi and wheezes Cardio: Rate: regular rate Rhythm: regular rhythm GI: GI Palp: Yes Soft to palpation Auscultation: normal bowel sounds Other: No tenderness/rigidity/rebound. : General: Yes no CVA tenderness Back/Spine/Pelvis: Back: no CVA tenderness Skin: General skin exam: normal color Rashes: no rashes Wounds: no wounds Neuro: General: patient oriented x3, moves all extremities, no meningeal signs, no focal motor deficits and CN's II-XI intact bilaterally Cranial nerves: Yes Nystagmus not present Speech: normal speech Gait exam (Neuro): Normal gait present Extrem: General: normal to inspection and no clubbing, cyanosis or edema Psych: Mental Status: mental status grossly normal Affect: normal affect Attitude: cooperative Course Course Emergency Course: Patient presented with upper respiratory symptoms and dizziness. The patient is not orthostatic. Patient had strep/influenza/RSV/COVID is negative. The patient had a chest x- ray which did not show any acute findings. Bronchitis Vital Signs Vital signs: Vital Signs Temperature 36.6 C 03/04/25 18:40 Pulse Rate 89 03/04/25 18:40 Respiratory Rate 16 03/04/25 18:40 Blood Pressure 142/88 H 03/04/25 18:40 Pulse Oximetry 100 03/04/25 18:40 Oxygen Delivery Room Air 03/04/25 18:40 Temperature 36.6 C 03/04/25 18:40 Pulse Rate 89 03/04/25 18:40 Respiratory Rate 16 03/04/25 18:40 Blood Pressure 142/88 H 03/04/25 18:40 Pulse Oximetry 100 03/04/25 18:55 Oxygen Delivery Room Air 03/04/25 18:55 MDM - URI/Sore Throat MDM Narrative Medical decision making narrative: Upper respiratory tract symptoms Bronchitis Differential Diagnosis Differential diagnosis: Likely upper respiratory infection Lab Data Attestation: I reviewed the patient's lab results. Labs: Lab Results 03/04/25 03/04/25 Range/Units 18:51 19:20 Urine Color Yellow (Yellow) Urine Appearance Clear (Clear) Urine pH 6.0 (5.0-8.0) Ur Specific [place] 1.025 H (1.010-1.020) Urine Protein Negative (Negative) Urine Glucose (UA) Negative (Negative) Urine Ketones Negative (Negative) Ur Blood (Man) Negative (Negative) Urine Nitrate Negative (Negative) Urine Bilirubin Negative (Negative) Urine Urobilinogen 0.2 (0.2-1.0) mg/dL Leukocyte Esterase Rfl Negative (Negative) SAMANTHA/UL Urine Test Negative Influenza A (RT-PCR) Negative (Negative) Influenza B (RT-PCR) Negative (Negative) RSV (RT-PCR) Negative (Negative) SARS-CoV-2 RNA (RT-PCR) Negative (Negative) Group A Strep (PCR) Not detected (Negative) Discharge Plan Discharge Clinical Impression: Upper respiratory infection, Bronchitis Patient Disposition: Home Condition: Stable Instructions: Antibiotic Form, How to Stop Smoking (ED), Upper Respiratory Infection (ED), Acute Bronchitis (ED) Patient Language: Burkinan Prescriptions: New azithromycin [Zithromax] 250 mg tablet 250 mg PO DAILY 4 Days Qty: 4 0RF Rx Instructions: start on day 2 of therapy Follow-up/Referrals: Tasha,YANELI Wheeler [Primary Care Provider] Time of Disposition: 21:19
[2025-03-04 18:55] VITALS: O2SAT 100
--- NOTE | 2025-03-04 18:55 | PC.NURSE ---
covid culture sent to lab
--- NOTE | 2025-03-04 19:05 | PC.NURSE ---
pt report received from ANGELA Alcantara. pt resting on stretcher in ED 1, call light within reach.
--- OUTSIDE RECORDS SUMMARY | 2025-03-04 19:22 | XMS_ITS | Clinical Summary ---
Author Organization [facility] Address [address] [place] [id number] Care Team Providers Care Cooking Chef Name Role Phone Kaushik Berman MD Primary Care Provider [phone] Allergies Active Allergy Reactions Criticality Noted Date [...] from your doctor or pharmacy? Never 04/07/2024 [facility] Utilities Answer Date Recorded In the past 12 months has e [employer], oil, or water [employer] threatened to shut off services in your [...] How often do you attend chur or roman catholic services? Never 04/07/2024 Do you belong to any clubs o r organizations such as synagogue groups, unions, fraternal or athletic groups, or [...] Recorded Patient Health Questionnaire-2 Score 0 04/07/2024 [facility] of Occupat ional Health - Occupational Stress [...] any time in the past 12 m [facility], were you homeless or living in a residential (including now)? No 04/07/2024 Comments No Sex and Gender Information Value Date Recorded Sex Assigned at Female 04/07/2024 10:13 PM INFO SPECIALIST Legal Sex Female 12:01 PM CDT Gender Identity Female 04/07/2024 10:12 PM INFO SPECIALIST Sexual Orientation Straight 04/07/2024 8: 28 PM INFO SPECIALIST Last Filed Vital Signs Vital Sign Reading Time Taken Comments Blood Pressure 126/77 04/11/2024 12:30 PM INFO SPECIALIST Pulse 82 04/11/2024 12:30 PM INFO SPECIALIST Temperature 36.1 C (97 F) 04/11/2024 12:30 PM INFO SPECIALIST Respiratory Rate 18 04/11/2024 12:30 PM INFO SPECIALIST Oxygen Saturation 99% 04/11/2024 12:30 PM INFO SPECIALIST Inhaled Oxygen Concentration - - Weight 108.9 kg (240 lb) 04/07/2024 5:55 PM INFO SPECIALIST Height 175.3 cm (5' 9) 04/07/2024 5:55 PM INFO SPECIALIST Body Mass Index 35.44 04/07/2024 5:55 PM INFO SPECIALIST Plan of Treatment Health Maintenance Due Date [...] SHIELD MEDICAID C/O PROVIDER SERVICES YANELI LOPEZ [id number] Advance Directives * Full Code (Latest Code Status on File) Date Activated Date Inactivated Comments 04/07/2024 6:29 PM 04/09/2024 6:46 PM * Full Code Date Activated Date Inactivated Comments 04/07/2024 6:29 PM 04/07/2024 6:29 PM Care Teams Cooking Chef Relationship Specialty Start Date End Date Kaushik Berman MD [address] [place] [address] PCP - General FAMILY PRACTICE 12/23/23
--- OUTSIDE RECORDS SUMMARY | 2025-03-04 19:22 | XMS_ITS | Clinical Summary ---
Author Organization [facility] Address [address] [place] [address] Phone Care Team Providers Care Health Insurance Assessor Name Role Phone Bryce Cordova MARI Primary Care Provider [phone] Allergies Active Allergy Reactions Criticality Noted Date [...] measures to stabilize the patient. Care Teams Health Insurance Assessor Relationship Specialty Start Date End Date Bryce Cordova PAC [address] [place] [address] PCP - General Physician Cafe Lead 07/16/15
--- OUTSIDE RECORDS SUMMARY | 2025-03-04 19:22 | XMS_ITS | Clinical Summary ---
Author Organization [facility] Address [facility] [place] [place] [address] Care Team Providers Care Flash Developer Name Role Phone Unavailable Primary Care Provider Unavailabl e Source Comments [facility],non-owned Affiliates and Associated Physician Practices is amultiple site organization consisting of ambulatory clinics and hospital sitesin [place], [place], [place] and [place]. This disclosure is being madepursuant to the Care Everywhere program and may not contain all information available regarding this patient. Last updated 18.[facility] [employer] Allergies Active Allergy Reactions Criticality Noted Date [...] migh t be different from the original. [employer] form completed. Diapers given. 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 Not hard at all 02/27/2024 [facility] [place] of Occupat ional Health - Occupational Stress [...] place to sleep or slept in a fdc (including now)? No 01/21/2024 Elkins Depression Scale Answer Date Recorded Elkins Depression Scale Total 0 02/27/2024 The thought [...] any time in the past 12 m [facility], were you homeless or living in a fdc (including now)? No 02/27/2024 Comments No Sex and Gender Information Value Date Recorded Sex Assigned at Not on file Legal Sex Female 7:49 AM CDT Gender Identity Not on file Sexual Orientation Not on file Last Filed Vital Signs Vital Sign Reading Time Taken Comments Blood Pressure 126/87 03/12/2024 1:51 PM FISH CLEANER MACHINE TENDER Pulse 85 03/12/2024 1:51 PM FISH CLEANER MACHINE TENDER Temperature 36.5 C (97.7 F) 02/27/2024 11:10 AM CDT Respiratory Rate 16 02/27/2024 11:25 AM CDT Oxygen Saturation 99% 01/22/2024 9:35 AM CDT Inhaled Oxygen Concentration - - Weight 107 kg (235 lb 12.8 oz) 03/12/2024 1:51 P M FISH CLEANER MACHINE TENDER Height 175.3 cm (5' 9) 02/27/2024 11:42 [...]
--- NOTE | 2025-03-04 19:26 | PC.NURSE ---
Dr. Carrera at bedside for update.
[2025-03-04 19:27] LABS: Strep Group A RT-PCR NOT DETECTED (Negative)
[2025-03-04 19:37] LABS: Influenza A QL RT-PCR Negative (Negative); Influenza B QL RT-PCR Negative (Negative); RSV RNA, RT-PCR Negative (Negative); SARS-CoV-2 RNA PCR Negative (Negative)
[2025-03-04 20:09] LABS: Add Urine Microscopic? NO; Appearance Urine Clear (Clear); Glucose Urine UA Negative (Negative); Leukocyte Esterase Ur Negative LEU/UL (Negative); Nitrate Urine Negative (Negative); Specific Grav Ur 1.025 (1.010-1.020)
[2025-03-04 20:10] LABS: Pregnancy On Board Control Positive
--- NOTE | 2025-03-04 20:12 | PC.NURSE ---
update provided; pt given another warm blanket. NAD. call light within reach. lights dimmed for comfort.
--- NOTE | 2025-03-04 21:20 | PC.NURSE ---
Dr. Carrera at pt bedside providing update of results and plan of care.
[2025-03-04] MEDS: AZITHROMYCIN 250 MG TABLET 500 MG PO (21:25)
[2025-03-04 21:34] VITALS: BP 116/90; PULSE 80; RESP 18; TEMP 36.3; O2SAT 97
== END 2025-03-04 21:34 | disposition home or self-care (01) ==
PROVIDERS: Emergency Provider Internal Medicine Critical Care Medicine; PCP Physician Assistant
DX: J06.9 Acute upper respiratory infection, unspecified (principal); J40 Bronchitis, not specified as acute or chronic; Z20.822 Contact with and (suspected) exposure to COVID-19
CPT/HCPCS: 71045; 81003; 81025; 87637; 87651; 99283; A9270